=== PATIENT | male | born 1955 | race Two or more races ===

== ENCOUNTER 2024-12-11 13:55 | Inpatient (IN) | payer MEDICARE, MEDICAID, SELFPAY ==
[2024-12-11] VITALS (13 sets, daily range): BP systolic 95–154; BP diastolic 59–88; PULSE 81–126; RESP 19–24; TEMP 36.8–39.4; O2SAT 91–949; BMI 23.6
--- NOTE | 2024-12-11 14:24 | EKG_ITS ---
[facility] (Formerly [facility])[3] Test Date: 2024-12-11 Pat Name: CHRIS JAIN Department: Room: - Gender: Male [employer] Data [employer]: : 1955 Requested By: Daniela Alvarez Order Number: [id number] Reading MD: Daniela Alvarez Measurements Intervals [place] Rate: 122 P: 24 AK: 156 QRS: -2 QRSD: 126 T: 12 QT: 310 QTc: 443 Interpretive Statements SINUS TACHYCARDIA INDETERMINATE AXIS RIGHT BUNDLE BRANCH BLOCK [120+ ms QRS DURATION, UPRIGHT V1, 40+ ms S IN I/aVL/V4/V5/V6] No previous ECG available for comparison [id number]
--- NOTE | 2024-12-11 14:24 | XR_ITS ---
Examination: AP lateral chest 2 views Technique: Sitting AP lateral chest 2 views Exam date and time: December 11, 2024 at 1502 hrs. Comparison 07/08/2017 Indications: Chest pain today Findings: Mild prominence of ventricle Subsegmental atelectasis at the right base No lobar pneumonia or pulmonary edema Poor inspiration Impression: Atelectasis right base
--- NOTE | 2024-12-11 14:25 | XR_ITS ---
Examination: CT brain head without contrast. 2-D sagittal coronal reconstructions Date and time of exam:December 11, 2024 1450 hrs. Comparison June 13, 2014 Indications: Altered mental status today CTDI: vol (mGy):48.3 DLP: (mGycm):1006 Technique: Multiple CT axial sections of the brain have been obtained, 5 mm slice thickness. Contrast has not been administered. 2-D sagittal, coronal reconstructions have been obtained Low dose protocols were performed. One or more of the following dose reduction techniques were used; automated exposure control, adjustment of the mA and/or KV according to patient size, use of iterative reconstruction technique. Findings: No significant ventricular enlargement. 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 No mass effect or midline shift Basal cisterns are not remarkable. Fourth ventricle is midline. Cranial vault intact. Impression: No interval acute hemorrhage, mass effect or midline shift As clinically warranted, brain MRI follow-up would best assess for acute ischemic change
--- NOTE | 2024-12-11 14:27 | PD.EDRME ---
Rapid Medical Screening Exam [facility] Arrival date/time: 12/11/24 13:55 This is a 6-year-old male that is brought in by daughter with complaints of altered mental status. Per patient daughter patient has a history of stroke and as a result has right-sided weakness. Patient not able to move his right arm and can bear weight a little bit on the right leg. She reports that yesterday he is not acting normal. Patient had incontinent episodes which he does not have typically. Patient is usually able to get in and out of the commode with no issues. Since the stroke patient has expressive aphasia. Patient also had a fall yesterday and as a result had vomiting episodes last night after hitting his head. Patient also hurt his right hip when he fell. Patient daughter takes care of him and states that he is not acting normal. Patient has a history of high blood pressure hyperlipidemia stroke. I have greeted and performed a focused initial assessment of this patient. Initial appropriate labs ordered at this time. A comprehensive ED assessment and evaluation of the patient and analysis of all test and completion of medical decision making process will be conducted by additional ED provider. Chief Complaint: Altered Mental Status Time Seen by Provider: 12/11/24 14:17 Vital signs: Vital Signs Temperature 98.5 F 12/11/24 14:07 Pulse Rate 120 H 12/11/24 14:07 Respiratory Rate 20 12/11/24 14:07 Blood Pressure 99/59 L 12/11/24 14:07 Pulse Oximetry (%) 94 L 12/11/24 14:07 Oxygen Delivery Method Room Air 12/11/24 14:07
--- NOTE | 2024-12-11 14:29 | XR_ITS ---
Examination: Bilateral hips, AP pelvis, 5 views Technique: AP, lateral views both hips, AP pelvis, 5 views Exam date and time: December 11, 2024 1502 hrs. Indications: Injury to both hips today bilateral hip pain Findings: No acute fracture No hip dislocations Bones of the pelvis intact Impression: No acute hip or pelvic fractures Recommend 1 day follow-up AP pelvis as clinically warranted
[2024-12-11 15:33] LABS: Lactate (Lactic Acid) 2.6 mMol/L (0.4-2.0)
[2024-12-11 15:35] LABS: Basophils # (Auto) 0.1 Thou/mm3 (0.0-0.2); Basophils % (Auto) 0 % (0-2.5); Eosinophils % (Auto) 0 % (0-10); Hematocrit 46.3 % (41.0-53.0); Hemoglobin 15.5 g/dL (13.5-16.0); Immature Granulocytes % (Auto) 1 % (0-0); Immature Granulocytes Auto 0.27 Thou/mm3 (0.00-0.00); Lymphocytes # (Auto) 1.4 Thou/mm3 (1.0-4.8); Lymphocytes % (Auto) 5 % (10-50); Mean Corpuscular HGB Conc 33.5 g/dl (31.0-37.0); Mean Corpuscular Hemoglobin 28.7 pg (25.0-35.0); Mean Corpuscular Volume 86 fL (80-100); Monocytes % (Auto) 8 % (0-12); Neutrophils # (Auto) 22.8 Thou/mm3 (1.8-7.7); Neutrophils % (Auto) 86 % (37-80); Nucleated Red Blood Cell % 0 /100 WBC (0); Platelet Count 240 Thou/mm3 (140-440); RDW Standard Deviation 43.8 fL (35.1-43.9); White Blood Count 26.6 Thou/mm3 (3.8-10.6)
[2024-12-11 16:04] LABS: B-Type Natriuretic Peptide 33 pg/mL (0-100)
[2024-12-11 16:13] LABS: Alanine Aminotransferase 49 U/L (10-49); Albumin, Serum 4.8 gm/dL (3.4-4.8); Albumin/Globulin Ratio 1.8 (1.2-2.2); Alkaline Phosphatase 99 U/L (46-116); Anion Gap 9 (7-16); Aspartate Amino Transferase 29 U/L (0-34); BUN/Creatinine Ratio 17 Ratio (12-20); Bilirubin,Total 0.8 mg/dL (0.3-1.2); Blood Urea Nitrogen 38 mg/dL (9-23); Calcium 11.3 mg/dL (8.3-10.6); Calcium (Corrected) 11.3 mg/dL (8.5-10.1); Carbon Dioxide 23.7 mMol/L (20.0-31.0); Chloride 105 mMol/L (98-107); Creatinine (Component) 2.3 mg/dL (0.6-1.3); Estimated Creatinine Clearance 29.9 mL/min (>60); Globulin 2.7 gm/dL (2.3-3.5); Glucose 104 mg/dL (74-106); Osmolality,Calculated 284 (275-295); Potassium 5.1 mMol/L (3.4-5.1); Procalcitonin 0.98 ng/ml (0.0-0.49); Sodium 138 mMol/L (136-145); Total Protein 7.5 gm/dL (5.7-8.2); Troponin I < 0.020 ng/mL (0.0-0.045); eGFR 30 See Note
--- NOTE | 2024-12-11 16:58 | XR_ITS ---
Examination: CT cervical spine without contrast 2-D sagittal reconstructions 2-D coronal reconstructions 3-D reconstructions. Exam date and time:December 11, 2024 1720 hrs. Indications: Patient fell today with injury to the neck, neck pain CTDI:vol (mGy) 13.2 DLP: (mGycm) 314 Technique: Multiple 2 mm axial sections of the cervical spine have been obtained. The coronal and sagittal reconstructions have been obtained. 3-D reconstructions have been obtained. Low dose protocols were performed. One or more of the following dose reduction techniques were used; automated exposure control, adjustment of the mA and/or KV according to patient size, use of iterative reconstruction technique. Findings: Axial sections demonstrate intact base of the skull. Cervical fusion C6-C7 C1 exhibit satisfactory relationship to the odontoid. No acute cervical vertebral body fracture seen. Alignment posterior spinous processes satisfactory. Impression: No acute cervical fracture.
--- NOTE | 2024-12-11 16:58 | XR_ITS ---
Examination: CT pelvis without intravenous contrast. 2-D sagittal and coronal reconstructions. Date and time of exam:December 11, 2024 1724 hrs. Indications: Patient fell today with injury to the hips and pelvis, pelvic pain CTDI: vol (mGy) :8.32 DLP: (mGycm) : 290 Technique: Multiple 3 mm axial sections of the pelvis have been obtained with the 64 slice high resolution scanner. 2-D sagittal and coronal reconstructions. Low dose protocols were performed. One or more of the following dose reduction techniques were used; automated exposure control, adjustment of the mA and/or KV according to patient size, use of iterative reconstruction technique. Findings: Significant osteopenia Sacral segments intact Iliac bones acetabular regions anterior rami intact No hip fracture or dislocation Moderate narrowing hip joints Urinary bladder wall shows mild diffuse thickening Transverse prostate dimension 5.3 cm Impression: Moderate narrowing hip joints No acute hip or pelvic fracture
--- NOTE | 2024-12-11 17:13 | EDNOTE_ITS ---
ED General RME/HPI General Chief complaint: Altered Mental Status Stated complaint: LETHRATIC SINCE LAST NIGHT, FALL THIS MORNING Time Seen by Provider: 12/11/24 14:17 Arrival date/time: 12/11/24 13:55 CC: Altered mental status HPI onset at midnight last night, with increased weakness and warm to touch. 1 episode of vomiting. 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 Daughter is informing the patient has been weak, and not responding appropriately which included a fall this morning. Patient is awake, and complaining when being moved. No other family members are ill with similar symptoms. RME / HPI RME / HPI narrative: 12/11/24 13:55 This is a 6-year-old male that is brought in by daughter with complaints of altered mental status. Per patient daughter patient has a history of stroke and as a result has right-sided weakness. Patient not able to move his right arm and can bear weight a little bit on the right leg. She reports that yesterday he is not acting normal. Patient had incontinent episodes which he does not have typically. Patient is usually able to get in and out of the commode with no issues. Since the stroke patient has expressive aphasia. Patient also had a fall yesterday and as a result had vomiting episodes last night after hitting his head. Patient also hurt his right hip when he fell. Patient daughter takes care of him and states that he is not acting normal. Patient has a history of high blood pressure hyperlipidemia stroke. I have greeted and performed a focused initial assessment of this patient. Initial appropriate labs ordered at this time. A comprehensive ED assessment and evaluation of the patient and analysis of all test and completion of medical decision making process will be conducted by additional ED provider. Related Data Home Medications ?Medication ?Instructions ?Recorded ?Confirmed aspirin 325 mg tablet 325 mg PO QDAY #0 tabs 06/1312/11/24 amlodipine 10 mg tablet (Norvasc) 10 mg PO QDAY #0 tab s 07/06/17 12/11/24 escitalopram oxalate 10 mg tablet 10 mg PO QDAY #0 tab s 07/06/17 12/11/24 (Lexapro) ezetimibe 10 mg tablet (Zetia) 10 mg PO QDAY #0 tabs 0 07/06/17 12/11/24 omeprazole 20 mg capsule,delayed 20 mg PO QDAY ##0 09/1112/11/24 release levetiracetam 500 mg tablet 500 mg PO BID #0 tabs 06/2612/11/24 (Keppra) calcitriol 0.25 mcg capsule mcg 12/11/24 glipizide 5 mg tablet 5 mg PO QDAY 12/11/24 lisinopril 20 mg tablet mg 12/11/24 vitamin B complex-vitamin C-folic 1 tab PO QDAY 12/11/24 acid 0.8 mg tablet (Dialyvite 800) Allergies Allergy/AdvReac Type Severity Reaction Status Date / Time meperidine Allergy Mild Itching Verified 10/28/18 21:47 clopidogrel AdvReac Severe TEMPORARY Verified 10/28/18 21:47 BLINDNESS morphine AdvReac Mild Nausea/Vomi Verified 10/28/18 21:47 tiing Review of Systems Review of Systems ROS Unobtainable: unobtainable due to mental status Narrative Review of Systems: Per this daughters who manages care the patient has had decreased mentation decreased activity decreased appetite with fall. Past Medical History Social History SMOKING STATUS: Never smoker ED Exam Narrative Physical exam: [General appears not in any acute distress Head normocephalic HEENT: Eyes pupils are PERRLA EOMs are intact. Within acceptable limits Neck is supple nontender Chest equal chest rise nontender to palpation Respiratory: Clear to auscultation no wheezes crackles or rubs CV: Rate rhythm is regular no murmurs rubs or clicks Abdomen is distended secondary to body habitus soft nontender no masses positive bowel sounds all 4 quadrants Back: No CVA tenderness no spinous process tenderness from cervical spine thoracic and lumbar spine Skin: Intact no petechiae rash induration ulceration or crepitus Extremities: Right upper extremity is contracted. Moving all extremities against resistance cap refill less than 2 seconds neurosensory intact Neuro: Awake alert oriented x1, self, Glascow coma 15 no focal deficits] Course Quality Measures none Orders Category Date Time Status Bedside Influenza A&B Antigen Test NOW Care 12/11/24 14:25 Completed Process Controls Technician STAT Care 12/11/24 16:55 Active Continuous Pulse Oximetry STAT Care 12/11/24 16:55 Completed EKG (ED ONLY) *Do not use* NOW Care 12/11/24 14:25 Completed In and Out Catheter X1PRN Care 12/11/24 16:55 Completed Insert IV NOW Care 12/11/24 16:55 Active NPO STAT Care 12/11/24 16:55 Active Strict Intake and Output Routine Care 12/11/24 16:[address] cervical spine wo con Stat Exams 12/11/24 16:[address] head/brain wo con Stat Exams 12/11/24 14:[address] pelvis wo con Stat Exams 12/11/24 16:58 Completed EKG (ED Only) Stat Exams 12/11/24 14:24 Draft XR chest 2V Stat Exams 12/11/24 14:24 Completed XR hip BI w pelvis 3-4V Stat Exams 12/11/24 14:29 Completed B-Type Natriuretic Peptide Stat Lab 12/11/24 17:08 Completed BNP [B-Type Natriuretic Peptide] Stat Lab 12/11/24 15:20 Completed Blood Culture (Lab) Stat Lab 12/11/24 17:08 Received CBC Stat Lab 12/11/24 15:20 Completed Comprehensive Metabolic Panel Stat Lab 12/11/24 15:20 Completed Drug Screen,Urine Stat Lab 12/11/24 17:12 Completed LDH (Lactate Dehydrogenase) Stat Lab 12/11/24 17:08 Completed Lactate (Lactic Acid) Stat Lab 12/11/24 15:20 Completed Lactic Acid, 3 HR Stat Lab 12/11/24 19:00 Ordered Lipase Stat Lab 12/11/24 17:08 Completed Magnesium Stat Lab 12/11/24 17:08 Completed Partial Thromboplastin Time Stat Lab 12/11/24 17:08 Completed Phosphorous Stat Lab 12/11/24 17:08 Completed Procalcitonin Stat Lab 12/11/24 15:20 Completed Prothrombin Time with INR Stat Lab 12/11/24 17:08 Completed Troponin I Stat Lab 12/11/24 15:20 Completed Troponin I Stat Lab 12/11/24 17:08 Completed Urinalysis, C/S if Indicated Stat Lab 12/11/24 17:12 Completed Urine Culture Stat Lab 12/11/24 17:12 Received Acetaminophen Tab [Tylenol ES Tab] Med 12/11/24 16:57 Discontinued 1,000 mg PO X1 ONE Ringers Lactated 1000 ml [Lactated Ringers] 2,121 ml Med 12/11/24 16:55 Discontinued IV 2,121 mls/hr cefTRIAXone [Rocephin] 1,000 mg Med 12/11/24 18:00 Discontinued Sodium Chloride 0.9% (P) [Ns 0.9% (P)] 50 ml IV NOW Oxygen Delivery NOW RT 12/11/24 16:55 Active Vital Signs Vital signs: Vital Signs Temperature 98.5 F 12/11/24 14:07 Pulse Rate 120 H 12/11/24 14:07 Respiratory Rate 20 12/11/24 14:07 Blood Pressure 99/59 L 12/11/24 14:07 Pulse Oximetry (%) 94 L 12/11/24 14:07 Oxygen Delivery Method Room Air 12/11/24 14:07 [facility] Patient data External records reviewed:: [facility] previous records Clinical information provided by:: patient Social determinants that could affect healthcare access:: none Patient has the following chronic illnesses:: 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 How is presenting disease/condition affected by chronic disease/condition?: u neffected by Evaluation data The following diagnostics were reviewed and interpreted by me:: lab results and radiology exam(s) Lab and/or radiology exams considered but not ordered:: CBC shows a leukocytosis of 26,600 H&H and within acceptable limits platelet count of 240 Coags within acceptable limits CMP shows BUN of 38 creatinine of 2.3 Lactic acid of 2.6 Calcium 11.3 Phosphorus of 1.8 Pro-Dc of 0.92 urine is positive for WBCs leukocyte esterase and 1+ bacteria COVID influenza are negative. CT head is interpreted by me read by radiology as negative for any acute finding. Chest x-ray as interpreted by me shows right base atelectasis. CT of head C-spine and pelvis negative for any acute fracture malalignment dislocation or abnormality that requires emergent or immediate intervention is interpreted by me and read by radiology. Interpretation Summary: Urinary tract infection with fever and leukocytosis. Patient is septic with UTI, patient's case discussed with Dr. Cobb who agrees to accept the patient for admission for weakness and fever UTI sepsis Medications Medications considered but not ordered:: None Medication administrations:: Medication Administration History Discontinued Medications Acetaminophen (Acetaminophen 500 Mg Tablet) 1,000 mg PO X1 ONE Stop: 12/11/24 16:58 Last Admin: 12/11/24 17:48 Dose: 1,000 mg Documented By: TM Lactated Ringer's (Lactated Ringers) 2,121 mls @ 2,121 mls/hr 30 ml/kg infuse over 60 min (2121 ml) IV .Q1H ONE Stop: 12/11/24 17:54 Last Admin: 12/11/24 17:47 Dose: 2,121 mls/hr Documented By: TM Ceftriaxone Sodium 1,000 mg/ (Sodium Chloride) 50 mls @ 100 mls/hr IV NOW ONE Stop: 12/11/24 18:29 Last Admin: 12/11/24 18:45 Dose: 100 mls/hr Documented By: TM None Consultations Consultation(s) initiated? (list below): No Diagnosis Differential Diagnosis ED Complaint MDM: Fever weakness UTI altered mental status Most likely diagnosis given after review of the tests above:: Fever weakness UTI altered mental status Admission Indicated Admission indicated?: indicated Explain why admission is indicated or not indicated:: Requires further medical management Admission Request Was there a request for admission?: No Disposition Plan Disposition Plan: Admit Medical Decision Making Differential Diagnosis Differential Diagnosis: Fever weakness UTI altered mental status Lab Data 12/11/24 15:20 12/11/24 15:20 Labs: Lab Results 12/11/24 12/11/24 12/11/24 Range/Units 15:20 17:08 17:12 WBC 26.6 H (3.8-10.6) Thou/mm3 RBC 5.40 (4.50-5.90) Miln/mm3 Hgb 15.5 (13.5-16.0) g/dL Hct 46.3 (41.0-53.0) % MCV 86 (80-100) fL MCH 28.7 (25.0-35.0) pg MCHC 33.5 (31.0-37.0) g/dl RDW Std Deviation 43.8 (35.1-43.9) fL Plt Count 240 (140-440) Thou/mm3 Neut % (Auto) 86 H (37-80) % Lymph % (Auto) 5 L (10-50) % [place] % (Auto) 8 (0-12) % Eos % (Auto) 0 (0-10) % Baso % (Auto) 0 (0-2.5) % Neut # (Auto) 22.8 H (1.8-7.7) Thou/mm3 Lymph # (Auto) 1.4 (1.0-4.8) Thou/mm3 [place] # (Auto) 2.0 H (0.0-0.8) Thou/mm3 Eos # (Auto) 0.0 (0.0-0.5) Thou/mm3 Baso # (Auto) 0.1 (0.0-0.2) Thou/mm3 Immature Gran # (Auto) 0.27 H (0.00-0.00) Thou/mm3 Absolute Nucleated RBC 0.00 (0.00-0.00) Thou/mm3 Immature Gran % 1 H (0-0) % Nucleated RBC % 0 (0) /100 WBC PT 12.7 H (9.0-12.2) Seconds INR 1.2 (0.9-1.3) APTT 29.1 (22.0-36.0) Seconds Sodium 138 (136-145) mMol/L Potassium 5.1 (3.4-5.1) mMol/L Chloride 105 (98-107) mMol/L Carbon Dioxide 23.7 (20.0-31.0) mMol/L Anion Gap 9 (7-16) BUN 38 H (9-23) mg/dL Creatinine 2.3 H (0.6-1.3) mg/dL Estim Creat Clear Calc 29.9 L (>60) mL/min eGFR 30 L (60 - ) See Note BUN/Creatinine Ratio 17 (12-20) Ratio Glucose 104 (74-106) mg/dL Calculated Osmolality 284 (275-295) Lactic Acid 2.6 H (0.4-2.0) mMol/L Calcium 11.3 H (8.3-10.6) mg/dL Corrected Calcium 11.3 H (8.5-10.1) mg/dL Phosphorus 1.8 L (2.4-5.1) mg/dL Magnesium 2.3 (1.6-2.6) mg/dL Total Bilirubin 0.8 (0.3-1.2) mg/dL AST 29 (0-34) U/L ALT 49 (10-49) U/L Alkaline Phosphatase 99 (46-116) U/L Lactate Dehydrogenase 190 (120-246) U/L Troponin I < 0.020 < 0.020 (0.0-0.045) ng/mL B-Natriuretic Peptide 33 31 (0-100) pg/mL Total Protein 7.5 (5.7-8.2) gm/dL Albumin 4.8 (3.4-4.8) gm/dL Globulin 2.7 (2.3-3.5) gm/dL Albumin/Globulin Ratio 1.8 (1.2-2.2) Lipase 47 (12-53) U/L Procalcitonin 0.98 H (0.0-0.49) ng/ml Ur Collection Type Voided Urine Color (Lt Yel-Yel) Urine Clarity (Clear/Hazy) Urine pH (5.0-7.0) Ur Specific Spray (1.001-1.035) Urine Protein (Neg - Trace) Urine Glucose (UA) (Negative) Urine Ketones (Negative) Urine Blood (Negative) Urine Nitrite (Negative) Urine Bilirubin (Negative) Urine Urobilinogen (Auto) (0.0-1.0) mg/dL Ur Leukocyte Esterase (Negative) Urine RBC (0-3) /hpf Urine WBC (0-5) /hpf Ur Squamous Epith Cells (0-5) /hpf Ur Transition Epith Cell Ur Renal Epithelial Cell Calcium Carbonate Cryst Calcium Phosphate Cryst Calcium Oxalate Crystal Leucine Crystals Cystine Crystals Uric Acid Crystals Triple Phos Crystals Tyrosine Crystals Amorphous Crystals Urine Bacteria (None) Cellular Casts Epithelial Casts Fatty Casts Hyaline Casts Granular Casts Waxy Casts Broad Casts RBC Casts Urine Mucus Urine Trichomonas Ur Yeast w Hyphae Urine Yeast (Budding) Urine Sperm Ur Oval Fat Bodies Ur Culture Indicated? Urine Opiates Screen (Negative) Urine Fentanyl Screen (Negative) Ur Barbiturates Screen (Negative) U Amphetamin/Meth Scrn (Negative) U Benzodiazepines Scrn (Negative) U Cocaine Metab Screen (Negative) U Marijuana (THC) Screen (Negative) 12/11/24 12/11/24 12/11/24 Range/Units 17:12 17:12 17:12 WBC (3.8-10.6) Thou/mm3 RBC (4.50-5.90) Miln/mm3 Hgb (13.5-16.0) g/dL Hct (41.0-53.0) % MCV (80-100) fL MCH (25.0-35.0) pg MCHC (31.0-37.0) g/dl RDW Std Deviation (35.1-43.9) fL Plt Count (140-440) Thou/mm3 Neut % (Auto) (37-80) % Lymph % (Auto) (10-50) % [place] % (Auto) (0-12) % Eos % (Auto) (0-10) % Baso % (Auto) (0-2.5) % Neut # (Auto) (1.8-7.7) Thou/mm3 Lymph # (Auto) (1.0-4.8) Thou/mm3 [place] # (Auto) (0.0-0.8) Thou/mm3 Eos # (Auto) (0.0-0.5) Thou/mm3 Baso # (Auto) (0.0-0.2) Thou/mm3 Immature Gran # (Auto) (0.00-0.00) Thou/mm3 Absolute Nucleated RBC (0.00-0.00) Thou/mm3 Immature Gran % (0-0) % Nucleated RBC % (0) /100 WBC PT (9.0-12.2) Seconds INR (0.9-1.3) APTT (22.0-36.0) Seconds Sodium (136-145) mMol/L Potassium (3.4-5.1) mMol/L Chloride (98-107) mMol/L Carbon Dioxide (20.0-31.0) mMol/L Anion Gap (7-16) BUN (9-23) mg/dL Creatinine (0.6-1.3) mg/dL Estim Creat Clear Calc (>60) mL/min eGFR (60 - ) See Note BUN/Creatinine Ratio (12-20) Ratio Glucose (74-106) mg/dL Calculated Osmolality (275-295) Lactic Acid (0.4-2.0) mMol/L Calcium (8.3-10.6) mg/dL Corrected Calcium (8.5-10.1) mg/dL Phosphorus (2.4-5.1) mg/dL Magnesium (1.6-2.6) mg/dL Total Bilirubin (0.3-1.2) mg/dL AST (0-34) U/L ALT (10-49) U/L Alkaline Phosphatase (46-116) U/L Lactate Dehydrogenase (120-246) U/L Troponin I (0.0-0.045) ng/mL B-Natriuretic Peptide (0-100) pg/mL Total Protein (5.7-8.2) gm/dL Albumin (3.4-4.8) gm/dL Globulin (2.3-3.5) gm/dL Albumin/Globulin Ratio (1.2-2.2) Lipase (12-53) U/L Procalcitonin (0.0-0.49) ng/ml Ur Collection Type Cancelled Urine Color Yellow Cancelled (Lt Yel-Yel) Urine Clarity Hazy Cancelled (Clear/Hazy) Urine pH 5.5 (5.0-7.0) Ur Specific Spray (1.001-1.035) Urine Protein (Neg - Trace) Urine Glucose (UA) (Negative) Urine Ketones (Negative) Urine Blood (Negative) Urine Nitrite (Negative) Urine Bilirubin (Negative) Urine Urobilinogen (Auto) (0.0-1.0) mg/dL Ur Leukocyte Esterase (Negative) Urine RBC (0-3) /hpf Urine WBC (0-5) /hpf Ur Squamous Epith Cells (0-5) /hpf Ur Transition Epith Cell Ur Renal Epithelial Cell Calcium Carbonate Cryst Calcium Phosphate Cryst Calcium Oxalate Crystal Leucine Crystals Cystine Crystals Uric Acid Crystals Triple Phos Crystals Tyrosine Crystals Amorphous Crystals Urine Bacteria (None) Cellular Casts Epithelial Casts Fatty Casts Hyaline Casts Granular Casts Waxy Casts Broad Casts RBC Casts Urine Mucus Urine Trichomonas Ur Yeast w Hyphae Urine Yeast (Budding) Urine Sperm Ur Oval Fat Bodies Ur Culture Indicated? Urine Opiates Screen (Negative) Urine Fentanyl Screen (Negative) Ur Barbiturates Screen (Negative) U Amphetamin/Meth Scrn (Negative) U Benzodiazepines Scrn (Negative) U Cocaine Metab Screen (Negative) U Marijuana (THC) Screen (Negative) 12/11/24 12/11/24 12/11/24 Range/Units 17:12 17:12 17:12 WBC (3.8-10.6) Thou/mm3 RBC (4.50-5.90) Miln/mm3 Hgb (13.5-16.0) g/dL Hct (41.0-53.0) % MCV (80-100) fL MCH (25.0-35.0) pg MCHC (31.0-37.0) g/dl RDW Std Deviation (35.1-43.9) fL Plt Count (140-440) Thou/mm3 Neut % (Auto) (37-80) % Lymph % (Auto) (10-50) % [place] % (Auto) (0-12) % Eos % (Auto) (0-10) % Baso % (Auto) (0-2.5) % Neut # (Auto) (1.8-7.7) Thou/mm3 Lymph # (Auto) (1.0-4.8) Thou/mm3 [place] # (Auto) (0.0-0.8) Thou/mm3 Eos # (Auto) (0.0-0.5) Thou/mm3 Baso # (Auto) (0.0-0.2) Thou/mm3 Immature Gran # (Auto) (0.00-0.00) Thou/mm3 Absolute Nucleated RBC (0.00-0.00) Thou/mm3 Immature Gran % (0-0) % Nucleated RBC % (0) /100 WBC PT (9.0-12.2) Seconds INR (0.9-1.3) APTT (22.0-36.0) Seconds Sodium (136-145) mMol/L Potassium (3.4-5.1) mMol/L Chloride (98-107) mMol/L Carbon Dioxide (20.0-31.0) mMol/L Anion Gap (7-16) BUN (9-23) mg/dL Creatinine (0.6-1.3) mg/dL Estim Creat Clear Calc (>60) mL/min eGFR (60 - ) See Note BUN/Creatinine Ratio (12-20) Ratio Glucose (74-106) mg/dL Calculated Osmolality (275-295) Lactic Acid (0.4-2.0) mMol/L Calcium (8.3-10.6) mg/dL Corrected Calcium (8.5-10.1) mg/dL Phosphorus (2.4-5.1) mg/dL Magnesium (1.6-2.6) mg/dL Total Bilirubin (0.3-1.2) mg/dL AST (0-34) U/L ALT (10-49) U/L Alkaline Phosphatase (46-116) U/L Lactate Dehydrogenase (120-246) U/L Troponin I (0.0-0.045) ng/mL B-Natriuretic Peptide (0-100) pg/mL Total Protein (5.7-8.2) gm/dL Albumin (3.4-4.8) gm/dL Globulin (2.3-3.5) gm/dL Albumin/Globulin Ratio (1.2-2.2) Lipase (12-53) U/L Procalcitonin (0.0-0.49) ng/ml Ur Collection Type Urine Color (Lt Yel-Yel) Urine Clarity (Clear/Hazy) Urine pH Cancelled (5.0-7.0) Ur Specific Spray 1.020 Cancelled (1.001-1.035) Urine Protein 1+ A Cancelled (Neg - Trace) Urine Glucose (UA) Negative (Negative) Urine Ketones (Negative) Urine Blood (Negative) Urine Nitrite (Negative) Urine Bilirubin (Negative) Urine Urobilinogen (Auto) (0.0-1.0) mg/dL Ur Leukocyte Esterase (Negative) Urine RBC (0-3) /hpf Urine WBC (0-5) /hpf Ur Squamous Epith Cells (0-5) /hpf Ur Transition Epith Cell Ur Renal Epithelial Cell Calcium Carbonate Cryst Calcium Phosphate Cryst Calcium Oxalate Crystal Leucine Crystals Cystine Crystals Uric Acid Crystals Triple Phos Crystals Tyrosine Crystals Amorphous Crystals Urine Bacteria (None) Cellular Casts Epithelial Casts Fatty Casts Hyaline Casts Granular Casts Waxy Casts Broad Casts RBC Casts Urine Mucus Urine Trichomonas Ur Yeast w Hyphae Urine Yeast (Budding) Urine Sperm Ur Oval Fat Bodies Ur Culture Indicated? Urine Opiates Screen (Negative) Urine Fentanyl Screen (Negative) Ur Barbiturates Screen (Negative) U Amphetamin/Meth Scrn (Negative) U Benzodiazepines Scrn (Negative) U Cocaine Metab Screen (Negative) U Marijuana (THC) Screen (Negative) 12/11/24 12/11/24 12/11/24 Range/Units 17:12 17:12 17:12 WBC (3.8-10.6) Thou/mm3 RBC (4.50-5.90) Miln/mm3 Hgb (13.5-16.0) g/dL Hct (41.0-53.0) % MCV (80-100) fL MCH (25.0-35.0) pg MCHC (31.0-37.0) g/dl RDW Std Deviation (35.1-43.9) fL Plt Count (140-440) Thou/mm3 Neut % (Auto) (37-80) % Lymph % (Auto) (10-50) % [place] % (Auto) (0-12) % Eos % (Auto) (0-10) % Baso % (Auto) (0-2.5) % Neut # (Auto) (1.8-7.7) Thou/mm3 Lymph # (Auto) (1.0-4.8) Thou/mm3 [place] # (Auto) (0.0-0.8) Thou/mm3 Eos # (Auto) (0.0-0.5) Thou/mm3 Baso # (Auto) (0.0-0.2) Thou/mm3 Immature Gran # (Auto) (0.00-0.00) Thou/mm3 Absolute Nucleated RBC (0.00-0.00) Thou/mm3 Immature Gran % (0-0) % Nucleated RBC % (0) /100 WBC PT (9.0-12.2) Seconds INR (0.9-1.3) APTT (22.0-36.0) Seconds Sodium (136-145) mMol/L Potassium (3.4-5.1) mMol/L Chloride (98-107) mMol/L Carbon Dioxide (20.0-31.0) mMol/L Anion Gap (7-16) BUN (9-23) mg/dL Creatinine (0.6-1.3) mg/dL Estim Creat Clear Calc (>60) mL/min eGFR (60 - ) See Note BUN/Creatinine Ratio (12-20) Ratio Glucose (74-106) mg/dL Calculated Osmolality (275-295) Lactic Acid (0.4-2.0) mMol/L Calcium (8.3-10.6) mg/dL Corrected Calcium (8.5-10.1) mg/dL Phosphorus (2.4-5.1) mg/dL Magnesium (1.6-2.6) mg/dL Total Bilirubin (0.3-1.2) mg/dL AST (0-34) U/L ALT (10-49) U/L Alkaline Phosphatase (46-116) U/L Lactate Dehydrogenase (120-246) U/L Troponin I (0.0-0.045) ng/mL B-Natriuretic Peptide (0-100) pg/mL Total Protein (5.7-8.2) gm/dL Albumin (3.4-4.8) gm/dL Globulin (2.3-3.5) gm/dL Albumin/Globulin Ratio (1.2-2.2) Lipase (12-53) U/L Procalcitonin (0.0-0.49) ng/ml Ur Collection Type Urine Color (Lt Yel-Yel) Urine Clarity (Clear/Hazy) Urine pH (5.0-7.0) Ur Specific Spray (1.001-1.035) Urine Protein (Neg - Trace) Urine Glucose (UA) Cancelled (Negative) Urine Ketones Negative Cancelled (Negative) Urine Blood 2+ A Cancelled (Negative) Urine Nitrite Negative (Negative) Urine Bilirubin (Negative) Urine Urobilinogen (Auto) (0.0-1.0) mg/dL Ur Leukocyte Esterase (Negative) Urine RBC (0-3) /hpf Urine WBC (0-5) /hpf Ur Squamous Epith Cells (0-5) /hpf Ur Transition Epith Cell Ur Renal Epithelial Cell Calcium Carbonate Cryst Calcium Phosphate Cryst Calcium Oxalate Crystal Leucine Crystals Cystine Crystals Uric Acid Crystals Triple Phos Crystals Tyrosine Crystals Amorphous Crystals Urine Bacteria (None) Cellular Casts Epithelial Casts Fatty Casts Hyaline Casts Granular Casts Waxy Casts Broad Casts RBC Casts Urine Mucus Urine Trichomonas Ur Yeast w Hyphae Urine Yeast (Budding) Urine Sperm Ur Oval Fat Bodies Ur Culture Indicated? Urine Opiates Screen (Negative) Urine Fentanyl Screen (Negative) Ur Barbiturates Screen (Negative) U Amphetamin/Meth Scrn (Negative) U Benzodiazepines Scrn (Negative) U Cocaine Metab Screen (Negative) U Marijuana (THC) Screen (Negative) 12/11/24 12/11/24 12/11/24 Range/Units 17:12 17:12 17:12 WBC (3.8-10.6) Thou/mm3 RBC (4.50-5.90) Miln/mm3 Hgb (13.5-16.0) g/dL Hct (41.0-53.0) % MCV (80-100) fL MCH (25.0-35.0) pg MCHC (31.0-37.0) g/dl RDW Std Deviation (35.1-43.9) fL Plt Count (140-440) Thou/mm3 Neut % (Auto) (37-80) % Lymph % (Auto) (10-50) % [place] % (Auto) (0-12) % Eos % (Auto) (0-10) % Baso % (Auto) (0-2.5) % Neut # (Auto) (1.8-7.7) Thou/mm3 Lymph # (Auto) (1.0-4.8) Thou/mm3 [place] # (Auto) (0.0-0.8) Thou/mm3 Eos # (Auto) (0.0-0.5) Thou/mm3 Baso # (Auto) (0.0-0.2) Thou/mm3 Immature Gran # (Auto) (0.00-0.00) Thou/mm3 Absolute Nucleated RBC (0.00-0.00) Thou/mm3 Immature Gran % (0-0) % Nucleated RBC % (0) /100 WBC PT (9.0-12.2) Seconds INR (0.9-1.3) APTT (22.0-36.0) Seconds Sodium (136-145) mMol/L Potassium (3.4-5.1) mMol/L Chloride (98-107) mMol/L Carbon Dioxide (20.0-31.0) mMol/L Anion Gap (7-16) BUN (9-23) mg/dL Creatinine (0.6-1.3) mg/dL Estim Creat Clear Calc (>60) mL/min eGFR (60 - ) See Note BUN/Creatinine Ratio (12-20) Ratio Glucose (74-106) mg/dL Calculated Osmolality (275-295) Lactic Acid (0.4-2.0) mMol/L Calcium (8.3-10.6) mg/dL Corrected Calcium (8.5-10.1) mg/dL Phosphorus (2.4-5.1) mg/dL Magnesium (1.6-2.6) mg/dL Total Bilirubin (0.3-1.2) mg/dL AST (0-34) U/L ALT (10-49) U/L Alkaline Phosphatase (46-116) U/L Lactate Dehydrogenase (120-246) U/L Troponin I (0.0-0.045) ng/mL B-Natriuretic Peptide (0-100) pg/mL Total Protein (5.7-8.2) gm/dL Albumin (3.4-4.8) gm/dL Globulin (2.3-3.5) gm/dL Albumin/Globulin Ratio (1.2-2.2) Lipase (12-53) U/L Procalcitonin (0.0-0.49) ng/ml Ur Collection Type Urine Color (Lt Yel-Yel) Urine Clarity (Clear/Hazy) Urine pH (5.0-7.0) Ur Specific Spray (1.001-1.035) Urine Protein (Neg - Trace) Urine Glucose (UA) (Negative) Urine Ketones (Negative) Urine Blood (Negative) Urine Nitrite Cancelled (Negative) Urine Bilirubin Negative Cancelled (Negative) Urine Urobilinogen (Auto) Negative Cancelled (0.0-1.0) mg/dL Ur Leukocyte Esterase Positive (Negative) Urine RBC (0-3) /hpf Urine WBC (0-5) /hpf Ur Squamous Epith Cells (0-5) /hpf Ur Transition Epith Cell Ur Renal Epithelial Cell Calcium Carbonate Cryst Calcium Phosphate Cryst Calcium Oxalate Crystal Leucine Crystals Cystine Crystals Uric Acid Crystals Triple Phos Crystals Tyrosine Crystals Amorphous Crystals Urine Bacteria (None) Cellular Casts Epithelial Casts Fatty Casts Hyaline Casts Granular Casts Waxy Casts Broad Casts RBC Casts Urine Mucus Urine Trichomonas Ur Yeast w Hyphae Urine Yeast (Budding) Urine Sperm Ur Oval Fat Bodies Ur Culture Indicated? Urine Opiates Screen (Negative) Urine Fentanyl Screen (Negative) Ur Barbiturates Screen (Negative) U Amphetamin/Meth Scrn (Negative) U Benzodiazepines Scrn (Negative) U Cocaine Metab Screen (Negative) U Marijuana (THC) Screen (Negative) 12/11/24 12/11/24 12/11/24 Range/Units 17:12 17:12 17:12 WBC (3.8-10.6) Thou/mm3 RBC (4.50-5.90) Miln/mm3 Hgb (13.5-16.0) g/dL Hct (41.0-53.0) % MCV (80-100) fL MCH (25.0-35.0) pg MCHC (31.0-37.0) g/dl RDW Std Deviation (35.1-43.9) fL Plt Count (140-440) Thou/mm3 Neut % (Auto) (37-80) % Lymph % (Auto) (10-50) % [place] % (Auto) (0-12) % Eos % (Auto) (0-10) % Baso % (Auto) (0-2.5) % Neut # (Auto) (1.8-7.7) Thou/mm3 Lymph # (Auto) (1.0-4.8) Thou/mm3 [place] # (Auto) (0.0-0.8) Thou/mm3 Eos # (Auto) (0.0-0.5) Thou/mm3 Baso # (Auto) (0.0-0.2) Thou/mm3 Immature Gran # (Auto) (0.00-0.00) Thou/mm3 Absolute Nucleated RBC (0.00-0.00) Thou/mm3 Immature Gran % (0-0) % Nucleated RBC % (0) /100 WBC PT (9.0-12.2) Seconds INR (0.9-1.3) APTT (22.0-36.0) Seconds Sodium (136-145) mMol/L Potassium (3.4-5.1) mMol/L Chloride (98-107) mMol/L Carbon Dioxide (20.0-31.0) mMol/L Anion Gap (7-16) BUN (9-23) mg/dL Creatinine (0.6-1.3) mg/dL Estim Creat Clear Calc (>60) mL/min eGFR (60 - ) See Note BUN/Creatinine Ratio (12-20) Ratio Glucose (74-106) mg/dL Calculated Osmolality (275-295) Lactic Acid (0.4-2.0) mMol/L Calcium (8.3-10.6) mg/dL Corrected Calcium (8.5-10.1) mg/dL Phosphorus (2.4-5.1) mg/dL Magnesium (1.6-2.6) mg/dL Total Bilirubin (0.3-1.2) mg/dL AST (0-34) U/L ALT (10-49) U/L Alkaline Phosphatase (46-116) U/L Lactate Dehydrogenase (120-246) U/L Troponin I (0.0-0.045) ng/mL B-Natriuretic Peptide (0-100) pg/mL Total Protein (5.7-8.2) gm/dL Albumin (3.4-4.8) gm/dL Globulin (2.3-3.5) gm/dL Albumin/Globulin Ratio (1.2-2.2) Lipase (12-53) U/L Procalcitonin (0.0-0.49) ng/ml Ur Collection Type Urine Color (Lt Yel-Yel) Urine Clarity (Clear/Hazy) Urine pH (5.0-7.0) Ur Specific Spray (1.001-1.035) Urine Protein (Neg - Trace) Urine Glucose (UA) (Negative) Urine Ketones (Negative) Urine Blood (Negative) Urine Nitrite (Negative) Urine Bilirubin (Negative) Urine Urobilinogen (Auto) (0.0-1.0) mg/dL Ur Leukocyte Esterase Cancelled (Negative) Urine RBC 33 H Cancelled (0-3) /hpf Urine WBC 206 H Cancelled (0-5) /hpf Ur Squamous Epith Cells 1 (0-5) /hpf Ur Transition Epith Cell Ur Renal Epithelial Cell Calcium Carbonate Cryst Calcium Phosphate Cryst Calcium Oxalate Crystal Leucine Crystals Cystine Crystals Uric Acid Crystals Triple Phos Crystals Tyrosine Crystals Amorphous Crystals Urine Bacteria (None) Cellular Casts Epithelial Casts Fatty Casts Hyaline Casts Granular Casts Waxy Casts Broad Casts RBC Casts Urine Mucus Urine Trichomonas Ur Yeast w Hyphae Urine Yeast (Budding) Urine Sperm Ur Oval Fat Bodies Ur Culture Indicated? Urine Opiates Screen (Negative) Urine Fentanyl Screen (Negative) Ur Barbiturates Screen (Negative) U Amphetamin/Meth Scrn (Negative) U Benzodiazepines Scrn (Negative) U Cocaine Metab Screen (Negative) U Marijuana (THC) Screen (Negative) 12/11/24 12/11/24 Range/Units 17:12 17:12 WBC (3.8-10.6) Thou/mm3 RBC (4.50-5.90) Miln/mm3 Hgb (13.5-16.0) g/dL Hct (41.0-53.0) % MCV (80-100) fL MCH (25.0-35.0) pg MCHC (31.0-37.0) g/dl RDW Std Deviation (35.1-43.9) fL Plt Count (140-440) Thou/mm3 Neut % (Auto) (37-80) % Lymph % (Auto) (10-50) % [place] % (Auto) (0-12) % Eos % (Auto) (0-10) % Baso % (Auto) (0-2.5) % Neut # (Auto) (1.8-7.7) Thou/mm3 Lymph # (Auto) (1.0-4.8) Thou/mm3 [place] # (Auto) (0.0-0.8) Thou/mm3 Eos # (Auto) (0.0-0.5) Thou/mm3 Baso # (Auto) (0.0-0.2) Thou/mm3 Immature Gran # (Auto) (0.00-0.00) Thou/mm3 Absolute Nucleated RBC (0.00-0.00) Thou/mm3 Immature Gran % (0-0) % Nucleated RBC % (0) /100 WBC PT (9.0-12.2) Seconds INR (0.9-1.3) APTT (22.0-36.0) Seconds Sodium (136-145) mMol/L Potassium (3.4-5.1) mMol/L Chloride (98-107) mMol/L Carbon Dioxide (20.0-31.0) mMol/L Anion Gap (7-16) BUN (9-23) mg/dL Creatinine (0.6-1.3) mg/dL Estim Creat Clear Calc (>60) mL/min eGFR (60 - ) See Note BUN/Creatinine Ratio (12-20) Ratio Glucose (74-106) mg/dL Calculated Osmolality (275-295) Lactic Acid (0.4-2.0) mMol/L Calcium (8.3-10.6) mg/dL Corrected Calcium (8.5-10.1) mg/dL Phosphorus (2.4-5.1) mg/dL Magnesium (1.6-2.6) mg/dL Total Bilirubin (0.3-1.2) mg/dL AST (0-34) U/L ALT (10-49) U/L Alkaline Phosphatase (46-116) U/L Lactate Dehydrogenase (120-246) U/L Troponin I (0.0-0.045) ng/mL B-Natriuretic Peptide (0-100) pg/mL Total Protein (5.7-8.2) gm/dL Albumin (3.4-4.8) gm/dL Globulin (2.3-3.5) gm/dL Albumin/Globulin Ratio (1.2-2.2) Lipase (12-53) U/L Procalcitonin (0.0-0.49) ng/ml Ur Collection Type Urine Color (Lt Yel-Yel) Urine Clarity (Clear/Hazy) Urine pH (5.0-7.0) Ur Specific Spray (1.001-1.035) Urine Protein (Neg - Trace) Urine Glucose (UA) (Negative) Urine Ketones (Negative) Urine Blood (Negative) Urine Nitrite (Negative) Urine Bilirubin (Negative) Urine Urobilinogen (Auto) (0.0-1.0) mg/dL Ur Leukocyte Esterase (Negative) Urine RBC (0-3) /hpf Urine WBC (0-5) /hpf Ur Squamous Epith Cells Cancelled (0-5) /hpf Ur Transition Epith Cell Cancelled Ur Renal Epithelial Cell Cancelled Calcium Carbonate Cryst Cancelled Calcium Phosphate Cryst Cancelled Calcium Oxalate Crystal Cancelled Leucine Crystals Cancelled Cystine Crystals Cancelled Uric Acid Crystals Cancelled Triple Phos Crystals Cancelled Tyrosine Crystals Cancelled Amorphous Crystals Cancelled Urine Bacteria 1+ A Cancelled (None) Cellular Casts Cancelled Epithelial Casts Cancelled Fatty Casts Cancelled Hyaline Casts Cancelled Granular Casts Cancelled Waxy Casts Cancelled Broad Casts Cancelled RBC Casts Cancelled Urine Mucus Cancelled Urine Trichomonas Cancelled Ur Yeast w Hyphae Cancelled Urine Yeast (Budding) Cancelled Urine Sperm Cancelled Ur Oval Fat Bodies Cancelled Ur Culture Indicated? Yes Urine Opiates Screen Negative (Negative) Urine Fentanyl Screen Negative (Negative) Ur Barbiturates Screen Negative (Negative) U Amphetamin/Meth Scrn Negative (Negative) U Benzodiazepines Scrn Negative (Negative) U Cocaine Metab Screen Negative (Negative) U Marijuana (THC) Screen Negative (Negative) Discharge Plan Plan Patient Disposition: Other Care w/in Hosp ([facility]) Patient condition on transfer: Stable Prescriptions/Referrals Prescriptions/Med Rec: No Action aspirin 325 MG tablet 325 mg PO QDAY Qty: 0 amlodipine [Norvasc] 10 MG tablet 10 mg PO QDAY Qty: 0 omeprazole 20 MG capsule,delayed release(DR/EC) 20 mg PO QDAY Qty: 0 escitalopram oxalate [Lexapro] 10 MG tablet 10 mg PO QDAY Qty: 0 ezetimibe [Zetia] 10 MG tablet 10 mg PO QDAY Qty: 0 levetiracetam [Keppra] 500 MG tablet 500 mg PO BID Qty: 0 calcitriol 0.25 mcg capsule Patient Comments: TAKE 1 CAPSULE BY MOUTH EVERY DAY Dialyvite 800 0.8 mg tablet 1 tab PO QDAY lisinopril 20 mg tablet Patient Comments: TAKE 1 TABLET BY MOUTH EVERY DAY glipizide 5 mg tablet 5 mg PO QDAY Problem List Clinical Impression: Acute UTI, Sepsis, Fever, Weakness Patient/Caregiver Discharge Instructions Print Language: [place] Zealander Stand Alone Forms: Mari Award Info., Patient Portal Info Letter PA/CHEMICALS FERMENTATION OPERATOR Supervising Physician PA/CHEMICALS FERMENTATION OPERATOR Supervising Physician: Robert Gambino ENP
[2024-12-11 17:20] LABS: Collection Type, Urine Voided
--- NOTE | 2024-12-11 17:22 | PC.NURSE ---
PT ARRIVES FROM HOME, DAUGHTERS BROUGHT HIM IN, REPORTS HE IS NOT ACTING HIMSELF. PER DAUGHTER PT GETS UP GOES TO THE BR ON HIS OWN, HX OF STROKE WITH RIGHT SIDED DEFICIT. PER DAUGHTER NOW PT IS INCONT AND OFF BALANCE. DAUGHTER NOT COOPERATIVE WITH STAFF, ONLY ALLOWING STAFF TO POSITION PT HER WAY, AND GET HIM FROM WHEELCHAIR TO STRETCHER FROM HER PREFERRED APPROACH, RAISING HER VOICE, USING FORCEFUL HAND GESTURES. WHEN ATTEMPTING TO DISCUSS HER OPTION WELL OURS, SHE REFUSED TO LET US CARE FOR PT UNLESS IT IS THE WAY SHE WANTS. IN AND OUT CATH PERFORMED TO OBTAIN URINE, FORESKIN WAS PULLED BACK, THERE WAS WHAT APPEARED TO BE A LOT OF WHITE BUILD UP, AND BLOOD AT THE TIP OF THE PENIS. URINE WAS OBTAINED, IV PLACED, WILL CONTINUE W/POC. DAUGHTER REMAINS AT BEDSIDE.
[2024-12-11 17:33] LABS: Amphetamine/Methamp Scrn,U Negative (Negative); Barbiturate Screen,Urine Negative (Negative); Benzodiazepines Screen,Urine Negative (Negative); Benzoylecgonine Screen, Ur Negative (Negative); Fentanyl Screen,Urine Negative (Negative); Opiate Screen,Urine Negative (Negative); THC Screen,Urine Negative (Negative)
[2024-12-11 17:36] LABS: Bacteria,Urine 1+; Bilirubin,Urine Negative (Negative); Blood,Urine 2+ (Negative); Color,Urine Yellow (Lt Yel-Yel); Glucose, Urine Negative (Negative); Ketones,Urine Negative (Negative); Leukocyte Esterase,Urine Positive (Negative); Nitrite,Urine Negative (Negative); PH,Urine 5.5 (5.0-7.0); Protein,Urine 1+ (Neg - Trace); RBC,Urine 33 /hpf (0-3); Squamous Epithelial Cell,Urine 1 /hpf (0-5); Urobilinogen,Urine Negative mg/dL (0.0-1.0); WBC,Urine 206 /hpf (0-5)
[2024-12-11 17:38] LABS: INR 1.2 (0.9-1.3); Partial Thromboplastin Time 29.1 Seconds (22.0-36.0); Prothrombin Time 12.7 Seconds (9.0-12.2)
[2024-12-11 17:40] LABS: Clarity,Urine Hazy (Clear/Hazy); Culture Indicated,Urine Yes
[2024-12-11 17:42] LABS: LDH (Lactate Dehydrogenase) 190 U/L (120-246); Lipase 47 U/L (12-53); Magnesium 2.3 mg/dL (1.6-2.6); Phosphorous 1.8 mg/dL (2.4-5.1); Troponin I < 0.020 ng/mL (0.0-0.045)
[2024-12-11] MEDS: RINGERS LACTATED 2121 ML IV (17:47)
[2024-12-11 17:48] LABS: B-Type Natriuretic Peptide 31 pg/mL (0-100)
[2024-12-11] MEDS: ACETAMINOPHEN 500 MG TABLET 1000 MG PO (17:48)
[2024-12-11 18:30] LABS: Reflex Lactate? Y
[2024-12-11] MEDS: cefTRIAXone 1,000 MG in SODIUM CHLORIDE 0.9% (P) 50 ML 100 MG IV (18:45)
--- NOTE | 2024-12-11 20:25 | ESHP_ITS ---
Documentation for date of: 12/11/24 HPI - Hospitalist History of Present Illness History of Present Illness: Weakness History of present illness: A 59-year-old male presented to the ER with the chief complaint of altered mental status. The patient's daughter reports that he has a history of stroke with right-sided weakness and expressive aphasia. He is usually independent in mobility and personal care using a bedside commode. However, since midnight, he has been lethargic, unable to stand on his own, and had three episodes of incontinence, which is atypical for him. He had a fall while holding onto a rail, hitting his head and right hip. Additionally, he experienced vomiting episodes after the fall and has been noted to have neck pain. No fever was initially reported by the family. The patient has a history of stroke, hypertension, hyperlipidemia, DM, and previous seizures post-stroke in 2013. He has undergone a PEG tube placement and trach in the past. His current medications include Keppra, Calcitriol, Amlodipine, Lisinopril, Escitalopram, Ezetimibe, Glipizide, and Aspirin. He has been off diabetic medications, with regular follow-ups showing no longer testing diabetic. He does not smoke or drink. His last hospitalization was approximately five to six years ago due to kidney issues, previously functioning at 40% but reportedly improved under nephrology care. His specialists include a inset cutter and pecan mallow dipper. In the Emergency Department, the patient was initially evaluated with vital signs: temperature 101?F, HR 120 bpm, RR 20, BP 99/59 mmHg. A sepsis alert was activated. Laboratory results revealed WBC 26.6, hemoglobin 15.5, platelets 240, Na 138, K 5.1, creatinine 2.3, lactic acid 2.6, phosphorus 1.8, and procalcitonin 0.98. Urinalysis showed WBC 206 and RBC 33. Imaging studies included a CT head with no acute hemorrhage, mass effect, or midline shift; a pelvic CT without acute hip or pelvic fracture; and a cervical CT with no acute cervical fracture. EKG showed sinus tachycardia. The patient was admitted for further management. Review of Systems Review of Systems Narrative Review of Systems: A 14 point review of systems was assessed and negative except for that per HPI Past Medical History Social History SMOKING STATUS: Never smoker Meds Home Medications and Allergies Home Medications ?Medication ?Instructions ?Recorded ?Confirmed ?Type aspirin 325 mg tablet 325 mg PO QDAY #0 tabs 06/13 /12/11/24 History amlodipine 10 mg tablet (Norvasc) 10 mg PO QDAY #0 tab s 07/06/17 12/11/24 History escitalopram oxalate 10 mg tablet 10 mg PO QDAY #0 tab s 07/06/17 12/11/24 History (Lexapro) ezetimibe 10 mg tablet (Zetia) 10 mg PO QDAY #0 tabs 0 07/06/17 12/11/24 History omeprazole 20 mg capsule,delayed 20 mg PO QDAY ##0 09/1112/11/24 History release levetiracetam 500 mg tablet 500 mg PO BID #0 tabs 06/2612/11/24 History (Keppra) calcitriol 0.25 mcg capsule mcg 12/11/24 History glipizide 5 mg tablet 5 mg PO QDAY 12/11/24 History lisinopril 20 mg tablet mg 12/11/24 History vitamin B complex-vitamin C-folic 1 tab PO QDAY 12/11/24 History acid 0.8 mg tablet (Dialyvite 800) Allergies Allergy/AdvReac Type Severity Reaction Status Date / Time meperidine Allergy Mild Itching Verified 10/28/18 21:47 clopidogrel AdvReac Severe TEMPORARY Verified 10/28/18 21:47 BLINDNESS morphine AdvReac Mild Nausea/Vomi Verified 10/28/18 21:47 tiing Exam Vital Signs Temp Pulse Resp BP Pulse Ox O2 Del Method 98.3 F 85 22 H 111/70 949 H Room Air 12/11/24 19:17 12/11/24 19:17 12/11/24 19:17 12/11/24 19:17 12/11/24 19:17 12/11/24 19:17 Narrative Constitutional: Male, in no apparent distress. Eyes: Extraocular movements intact. No ptosis. PERRL. Neck: Supple, trachea midline. No thyromegaly. Lungs: Clear and good breath sounds equally. No wheezing. No rhonchi. CV: S1, S2. Regular rate and rhythm. GI: Soft, nontender. No HSM. Musculoskeletal: No cyanosis, clubbing or edema. Neuro: Alert, non-verbal. Right sided weakness. Psychiatric: In a good mood. No signs of depression and is nonfocal. Skin: Warm and dry. No acute lesions. Results - Hospitalist Labs Diagrams: 12/11/24 15:20 12/11/24 15:20 Labs: Short CBC 12/11/24 Range/Units 15:20 WBC 26.6 H (3.8-10.6) Thou/mm3 Hgb 15.5 (13.5-16.0) g/dL Hct 46.3 (41.0-53.0) % Plt Count 240 (140-440) Thou/mm3 BMP 12/11/24 15:20 Sodium 138 Potassium 5.1 Chloride 105 Carbon Dioxide 23.7 BUN 38 H Creatinine 2.3 H Glucose 104 Calcium 11.3 H Cardiac Enzymes 12/11/24 12/11/24 Range/Units 15:20 17:08 Troponin I < 0.020 < 0.020 (0.0-0.045) ng/mL Liver Function 12/11/24 Range/Units 15:20 Total Bilirubin 0.8 (0.3-1.2) mg/dL AST 29 (0-34) U/L ALT 49 (10-49) U/L Alkaline Phosphatase 99 (46-116) U/L Albumin 4.8 (3.4-4.8) gm/dL Urine 12/11/24 12/11/24 12/11/24 Range/Units 17:12 17:12 17:12 Urine Color Yellow Cancelled (Lt Yel-Yel) Urine Clarity Hazy Cancelled (Clear/Hazy) Urine pH 5.5 (5.0-7.0) Ur Specific [place] (1.001-1.035) Urine Protein (Neg - Trace) Urine Glucose (UA) (Negative) 12/11/24 12/11/24 12/11/24 Range/Units 17:12 17:12 17:12 Urine Color (Lt Yel-Yel) Urine Clarity (Clear/Hazy) Urine pH Cancelled (5.0-7.0) Ur Specific [place] 1.020 Cancelled (1.001-1.035) Urine Protein 1+ A Cancelled (Neg - Trace) Urine Glucose (UA) Negative (Negative) 12/11/24 Range/Units 17:12 Urine Color (Lt Yel-Yel) Urine Clarity (Clear/Hazy) Urine pH (5.0-7.0) Ur Specific [place] (1.001-1.035) Urine Protein (Neg - Trace) Urine Glucose (UA) Cancelled (Negative) Assessment & Plan -Hospitalist Patient Synopsis Altered Mental Status, Suspected Sepsis * Assessment: The patient presents with acute lethargy, inability to ambulate, and incontinence, alongside fever, leukocytosis, and tachycardia, raising concern for sepsis. Urinalysis findings (WBC 206, RBC 33) suggest a urinary tract infection as a potential source. The elevated creatinine (2.3) compared to baseline indicates possible acute kidney injury, possibly due to sepsis or dehydration. No acute intracranial process or fractures were identified on imaging. * Plan: * Sepsis management: Broad-spectrum antibiotics, with adjustment based on culture results. * Fluid resuscitation: IV crystalloid fluids to optimize perfusion and support renal function. * Hemodynamic support: Monitor BP closely; will hold BP meds now. * Source control: Urine culture, blood cultures, and repeat lactate monitoring. * Fever management: Acetaminophen for temperature control. * Nephrology consult: Evaluate for JOAQUIN and optimize renal function. Acute Kidney Injury * Assessment: Elevated creatinine (2.3) compared to baseline suggests JOAQUIN, possibly due to sepsis, dehydration, or underlying renal disease. History of prior kidney dysfunction noted. * Plan: * Renal function monitoring: Serial creatinine and electrolyte checks. * Optimize volume status: IV fluids with careful monitoring to prevent fluid overload. * Avoid nephrotoxic agents: Hold NSAIDs and adjust renally cleared medications. * Electrolyte management: Monitor potassium closely given K+ of 5.1. * Nephrology consult: Evaluate for JOAQUIN and optimize renal function. Fall with Head and Neck Trauma * Assessment: Patient experienced a fall with head and neck impact, followed by vomiting and neck pain. CT head and cervical spine imaging ruled out acute hemorrhage or fracture. * Plan: * Neurologic monitoring: Frequent neuro checks for any delayed intracranial changes. * Pain management: Acetaminophen, avoiding NSAIDs due to JOAQUIN risk. * Monitor for post-fall complications: Worsening confusion, prolonged vomiting, or new focal deficits. Seizure History and Stroke Sequelae * Assessment: History of prior stroke with residual deficits and post-stroke seizures, currently on Keppra. No witnessed seizure activity reported. * Plan: * Continue Keppra: Ensure adherence to prevent breakthrough seizures. * Hold aspirin now due to hematuria Chronic Conditions Management * Hypertension & Hyperlipidemia: Hold home BP medications now, adjusting as needed based on BP trends and renal function. * Diabetes: Patient reportedly no longer requiring diabetic medications; monitor glucose levels during acute illness. * Psychiatric History: Continue escitalopram; assess for delirium contributing to altered mentation. * Will hold calcitriol now due to hypercalcemia DVT prophylaxis: SCD now due to hematuria Quality Measures Quality Measures none Advance care planning discussed with:: patient and child
[2024-12-11] MEDS: levETIRAcetam 250 MG TABLET 500 MG PO (21:28)
[2024-12-11] MEDS: ACETAMINOPHEN 325 MG TABLET 650 MG PO (23:36)
--- NOTE | 2024-12-11 23:45 | PC.NURSE ---
pt confused and restless. Checked temp . 103.0 tylenol given.
[2024-12-11] MEDS: SODIUM CHLORIDE 0.9% 1000 ML 1,000 ML 100 ML IV (23:47)
[2024-12-12] VITALS (9 sets, daily range): BP systolic 109–132; BP diastolic 62–92; PULSE 86–133; RESP 17–95; TEMP 36.2–37.7; O2SAT 92–96; BMI 26.2
--- NOTE | 2024-12-12 00:12 | PC.NURSE ---
report called to Darya ZUNIGA. pt taken to rm
[2024-12-12] MEDS: SOD PHOS ADDITIVE 15 MMOL in SODIUM CHLORIDE 0.9% 250 ML 250 ML 62.5 MMOL IV (01:12)
[2024-12-12 05:56] LABS: Basophils # (Auto) 0.1 Thou/mm3 (0.0-0.2); Basophils % (Auto) 0 % (0-2.5); Eosinophils % (Auto) 0 % (0-10); Hematocrit 40.8 % (41.0-53.0); Hemoglobin 13.4 g/dL (13.5-16.0); Immature Granulocytes % (Auto) 1 % (0-0); Immature Granulocytes Auto 0.35 Thou/mm3 (0.00-0.00); Lymphocytes # (Auto) 1.9 Thou/mm3 (1.0-4.8); Lymphocytes % (Auto) 8 % (10-50); Mean Corpuscular HGB Conc 32.8 g/dl (31.0-37.0); Mean Corpuscular Hemoglobin 28.9 pg (25.0-35.0); Mean Corpuscular Volume 88 fL (80-100); Monocytes % (Auto) 8 % (0-12); Neutrophils % (Auto) 83 % (37-80); Nucleated Red Blood Cell % 0 /100 WBC (0); Platelet Count 197 Thou/mm3 (140-440); RDW Standard Deviation 45.8 fL (35.1-43.9); Red Blood Count 4.64 Miln/mm3 (4.50-5.90); White Blood Count 25.3 Thou/mm3 (3.8-10.6)
[2024-12-12 06:25] LABS: Anion Gap 9 (7-16); BUN/Creatinine Ratio 17 Ratio (12-20); Blood Urea Nitrogen 32 mg/dL (9-23); Calcium 10.4 mg/dL (8.3-10.6); Carbon Dioxide 24.9 mMol/L (20.0-31.0); Chloride 111 mMol/L (98-107); Creatinine (Component) 1.9 mg/dL (0.6-1.3); Estimated Creatinine Clearance 36.2 mL/min (>60); Glucose 73 mg/dL (74-106); Osmolality,Calculated 294 (275-295); Potassium 4.8 mMol/L (3.4-5.1); Sodium 145 mMol/L (136-145); eGFR 37 See Note
[2024-12-12] MEDS: levETIRAcetam 250 MG TABLET 500 MG PO ×2 (09:30→20:24)
--- NOTE | 2024-12-12 09:44 | ESPR_ITS ---
<Statement entered by Mildred Rayo MD - 12/12/24 13:24> I discussed with and supervised my co-resident involved in the care of this patient. I agree with the assessment and plan as documented above. Patient seen at bedside. Overnight, TMax of 103. Leukocytosis at 25, and JOAQUIN improving. Phosphate repleted. Will continue ceftriaxone for his UTI, and follow up on cultures. Will follow up with drive shaft and steering post repairer Dr. Rosenberg for his JOAQUIN on CKD. Mildred Rayo MD PGY-3 Documentation for date of: 12/12/24 Subjective Subjective Interval history: Patient seen and examined at bedside. Daughter Cassie was also at bedside who was able to provide a lot of the history. She stated that patient is typically able to complete activities of daily living and are able to communicate properly with hand gestures. He has no issues with incontinence in the past. Patient is able to follow commands, exhibiting weakness in right arm due to the stroke. Slight improvement in WBC today 25. JOAQUIN improving with Cr 1.9. Continue ceftriaxone 1g daily for UTI Cultures still pending. Exam Vital Signs Temp Pulse Resp BP Pulse Ox O2 Del Method 98.4 F 102 H 17 122/77 95 Room Air 12/12/24 08:00 12/12/24 08:00 12/12/24 08:00 12/12/24 08:00 12/12/24 08:00 12/12/24 08:00 Narrative Exam General: Elerdly male, well kept, sleeping, No acute distress HEENT: NCAT, No JVD noted. Mucosa moist. Pupils are equal and reactive to light bilaterally Cardiovascular: Normal S1 and S2. Regular rate and rhythm. Respiratory: Lungs are clear to auscultation bilaterally. No wheezing or crackles heard. Abdomen: Soft, nontender, not distended, normal bowel sounds. Skin: Warm to touch, dry, no rashes noted Musculoskeletal: No gross injuries. Able to move all 4 extremities. No pitting edema Neuro: Per daughter, patient is at baseline. Right arm weakness, apashia, follows simple commands Objective Labs 12/12/24 04:07 12/12/24 04:07 Labs: Laboratory Results - last 24 hr 12/11/24 12/11/24 12/11/24 15:20 17:08 17:12 WBC 26.6 H RBC 5.40 Hgb 15.5 Hct 46.3 MCV 86 MCH 28.7 MCHC 33.5 RDW Std Deviation 43.8 Plt Count 240 Neut % (Auto) 86 H Lymph % (Auto) 5 L [place] % (Auto) 8 Eos % (Auto) 0 Baso % (Auto) 0 Neut # (Auto) 22.8 H Lymph # (Auto) 1.4 [place] # (Auto) 2.0 H Eos # (Auto) 0.0 Baso # (Auto) 0.1 Immature Gran # (Auto) 0.27 H Absolute Nucleated RBC 0.00 Immature Gran % 1 H Nucleated RBC % 0 PT 12.7 H INR 1.2 APTT 29.1 Sodium 138 Potassium 5.1 Chloride 105 Carbon Dioxide 23.7 Anion Gap 9 BUN 38 H Creatinine 2.3 H Estim Creat Clear Calc 29.9 L eGFR 30 L BUN/Creatinine Ratio 17 Glucose 104 Calculated Osmolality 284 Lactic Acid 2.6 H Calcium 11.3 H Corrected Calcium 11.3 H Phosphorus 1.8 L Magnesium 2.3 Total Bilirubin 0.8 AST 29 ALT 49 Alkaline Phosphatase 99 Lactate Dehydrogenase 190 Troponin I < 0.020 < 0.020 B-Natriuretic Peptide 33 31 Total Protein 7.5 Albumin 4.8 Globulin 2.7 Albumin/Globulin Ratio 1.8 Lipase 47 Procalcitonin 0.98 H Ur Collection Type Voided Urine Color Urine Clarity Urine pH Ur Specific [place] Urine Protein Urine Glucose (UA) Urine Ketones Urine Blood Urine Nitrite Urine Bilirubin Urine Urobilinogen (Auto) Ur Leukocyte Esterase Urine RBC Urine WBC Ur Squamous Epith Cells Ur Transition Epith Cell Ur Renal Epithelial Cell Calcium Carbonate Cryst Calcium Phosphate Cryst Calcium Oxalate Crystal Leucine Crystals Cystine Crystals Uric Acid Crystals Triple Phos Crystals Tyrosine Crystals Amorphous Crystals Urine Bacteria Cellular Casts Epithelial Casts Fatty Casts Hyaline Casts Granular Casts Waxy Casts Broad Casts RBC Casts Urine Mucus Urine Trichomonas Ur Yeast w Hyphae Urine Yeast (Budding) Urine Sperm Ur Oval Fat Bodies Ur Culture Indicated? Urine Opiates Screen Urine Fentanyl Screen Ur Barbiturates Screen U Amphetamin/Meth Scrn U Benzodiazepines Scrn U Cocaine Metab Screen U Marijuana (THC) Screen 12/11/24 12/11/24 12/11/24 17:12 17:12 17:12 WBC RBC Hgb Hct MCV MCH MCHC RDW Std Deviation Plt Count Neut % (Auto) Lymph % (Auto) [place] % (Auto) Eos % (Auto) Baso % (Auto) Neut # (Auto) Lymph # (Auto) [place] # (Auto) Eos # (Auto) Baso # (Auto) Immature Gran # (Auto) Absolute Nucleated RBC Immature Gran % Nucleated RBC % PT INR APTT Sodium Potassium Chloride Carbon Dioxide Anion Gap BUN Creatinine Estim Creat Clear Calc eGFR BUN/Creatinine Ratio Glucose Calculated Osmolality Lactic Acid Calcium Corrected Calcium Phosphorus Magnesium Total Bilirubin AST ALT Alkaline Phosphatase Lactate Dehydrogenase Troponin I B-Natriuretic Peptide Total Protein Albumin Globulin Albumin/Globulin Ratio Lipase Procalcitonin Ur Collection Type Cancelled Urine Color Yellow Cancelled Urine Clarity Hazy Cancelled Urine pH 5.5 Ur Specific [place] Urine Protein Urine Glucose (UA) Urine Ketones Urine Blood Urine Nitrite Urine Bilirubin Urine Urobilinogen (Auto) Ur Leukocyte Esterase Urine RBC Urine WBC Ur Squamous Epith Cells Ur Transition Epith Cell Ur Renal Epithelial Cell Calcium Carbonate Cryst Calcium Phosphate Cryst Calcium Oxalate Crystal Leucine Crystals Cystine Crystals Uric Acid Crystals Triple Phos Crystals Tyrosine Crystals Amorphous Crystals Urine Bacteria Cellular Casts Epithelial Casts Fatty Casts Hyaline Casts Granular Casts Waxy Casts Broad Casts RBC Casts Urine Mucus Urine Trichomonas Ur Yeast w Hyphae Urine Yeast (Budding) Urine Sperm Ur Oval Fat Bodies Ur Culture Indicated? Urine Opiates Screen Urine Fentanyl Screen Ur Barbiturates Screen U Amphetamin/Meth Scrn U Benzodiazepines Scrn U Cocaine Metab Screen U Marijuana (THC) Screen 12/11/24 12/11/24 12/11/24 17:12 17:12 17:12 WBC RBC Hgb Hct MCV MCH MCHC RDW Std Deviation Plt Count Neut % (Auto) Lymph % (Auto) [place] % (Auto) Eos % (Auto) Baso % (Auto) Neut # (Auto) Lymph # (Auto) [place] # (Auto) Eos # (Auto) Baso # (Auto) Immature Gran # (Auto) Absolute Nucleated RBC Immature Gran % Nucleated RBC % PT INR APTT Sodium Potassium Chloride Carbon Dioxide Anion Gap BUN Creatinine Estim Creat Clear Calc eGFR BUN/Creatinine Ratio Glucose Calculated Osmolality Lactic Acid Calcium Corrected Calcium Phosphorus Magnesium Total Bilirubin AST ALT Alkaline Phosphatase Lactate Dehydrogenase Troponin I B-Natriuretic Peptide Total Protein Albumin Globulin Albumin/Globulin Ratio Lipase Procalcitonin Ur Collection Type Urine Color Urine Clarity Urine pH Cancelled Ur Specific [place] 1.020 Cancelled Urine Protein 1+ A Cancelled Urine Glucose (UA) Negative Urine Ketones Urine Blood Urine Nitrite Urine Bilirubin Urine Urobilinogen (Auto) Ur Leukocyte Esterase Urine RBC Urine WBC Ur Squamous Epith Cells Ur Transition Epith Cell Ur Renal Epithelial Cell Calcium Carbonate Cryst Calcium Phosphate Cryst Calcium Oxalate Crystal Leucine Crystals Cystine Crystals Uric Acid Crystals Triple Phos Crystals Tyrosine Crystals Amorphous Crystals Urine Bacteria Cellular Casts Epithelial Casts Fatty Casts Hyaline Casts Granular Casts Waxy Casts Broad Casts RBC Casts Urine Mucus Urine Trichomonas Ur Yeast w Hyphae Urine Yeast (Budding) Urine Sperm Ur Oval Fat Bodies Ur Culture Indicated? Urine Opiates Screen Urine Fentanyl Screen Ur Barbiturates Screen U Amphetamin/Meth Scrn U Benzodiazepines Scrn U Cocaine Metab Screen U Marijuana (THC) Screen 12/11/24 12/11/24 12/11/24 17:12 17:12 17:12 WBC RBC Hgb Hct MCV MCH MCHC RDW Std Deviation Plt Count Neut % (Auto) Lymph % (Auto) [place] % (Auto) Eos % (Auto) Baso % (Auto) Neut # (Auto) Lymph # (Auto) [place] # (Auto) Eos # (Auto) Baso # (Auto) Immature Gran # (Auto) Absolute Nucleated RBC Immature Gran % Nucleated RBC % PT INR APTT Sodium Potassium Chloride Carbon Dioxide Anion Gap BUN Creatinine Estim Creat Clear Calc eGFR BUN/Creatinine Ratio Glucose Calculated Osmolality Lactic Acid Calcium Corrected Calcium Phosphorus Magnesium Total Bilirubin AST ALT Alkaline Phosphatase Lactate Dehydrogenase Troponin I B-Natriuretic Peptide Total Protein Albumin Globulin Albumin/Globulin Ratio Lipase Procalcitonin Ur Collection Type Urine Color Urine Clarity Urine pH Ur Specific [place] Urine Protein Urine Glucose (UA) Cancelled Urine Ketones Negative Cancelled Urine Blood 2+ A Cancelled Urine Nitrite Negative Urine Bilirubin Urine Urobilinogen (Auto) Ur Leukocyte Esterase Urine RBC Urine WBC Ur Squamous Epith Cells Ur Transition Epith Cell Ur Renal Epithelial Cell Calcium Carbonate Cryst Calcium Phosphate Cryst Calcium Oxalate Crystal Leucine Crystals Cystine Crystals Uric Acid Crystals Triple Phos Crystals Tyrosine Crystals Amorphous Crystals Urine Bacteria Cellular Casts Epithelial Casts Fatty Casts Hyaline Casts Granular Casts Waxy Casts Broad Casts RBC Casts Urine Mucus Urine Trichomonas Ur Yeast w Hyphae Urine Yeast (Budding) Urine Sperm Ur Oval Fat Bodies Ur Culture Indicated? Urine Opiates Screen Urine Fentanyl Screen Ur Barbiturates Screen U Amphetamin/Meth Scrn U Benzodiazepines Scrn U Cocaine Metab Screen U Marijuana (THC) Screen 12/11/24 12/11/24 12/11/24 17:12 17:12 17:12 WBC RBC Hgb Hct MCV MCH MCHC RDW Std Deviation Plt Count Neut % (Auto) Lymph % (Auto) [place] % (Auto) Eos % (Auto) Baso % (Auto) Neut # (Auto) Lymph # (Auto) [place] # (Auto) Eos # (Auto) Baso # (Auto) Immature Gran # (Auto) Absolute Nucleated RBC Immature Gran % Nucleated RBC % PT INR APTT Sodium Potassium Chloride Carbon Dioxide Anion Gap BUN Creatinine Estim Creat Clear Calc eGFR BUN/Creatinine Ratio Glucose Calculated Osmolality Lactic Acid Calcium Corrected Calcium Phosphorus Magnesium Total Bilirubin AST ALT Alkaline Phosphatase Lactate Dehydrogenase Troponin I B-Natriuretic Peptide Total Protein Albumin Globulin Albumin/Globulin Ratio Lipase Procalcitonin Ur Collection Type Urine Color Urine Clarity Urine pH Ur Specific [place] Urine Protein Urine Glucose (UA) Urine Ketones Urine Blood Urine Nitrite Cancelled Urine Bilirubin Negative Cancelled Urine Urobilinogen (Auto) Negative Cancelled Ur Leukocyte Esterase Positive Urine RBC Urine WBC Ur Squamous Epith Cells Ur Transition Epith Cell Ur Renal Epithelial Cell Calcium Carbonate Cryst Calcium Phosphate Cryst Calcium Oxalate Crystal Leucine Crystals Cystine Crystals Uric Acid Crystals Triple Phos Crystals Tyrosine Crystals Amorphous Crystals Urine Bacteria Cellular Casts Epithelial Casts Fatty Casts Hyaline Casts Granular Casts Waxy Casts Broad Casts RBC Casts Urine Mucus Urine Trichomonas Ur Yeast w Hyphae Urine Yeast (Budding) Urine Sperm Ur Oval Fat Bodies Ur Culture Indicated? Urine Opiates Screen Urine Fentanyl Screen Ur Barbiturates Screen U Amphetamin/Meth Scrn U Benzodiazepines Scrn U Cocaine Metab Screen U Marijuana (THC) Screen 12/11/24 12/11/24 12/11/24 17:12 17:12 17:12 WBC RBC Hgb Hct MCV MCH MCHC RDW Std Deviation Plt Count Neut % (Auto) Lymph % (Auto) [place] % (Auto) Eos % (Auto) Baso % (Auto) Neut # (Auto) Lymph # (Auto) [place] # (Auto) Eos # (Auto) Baso # (Auto) Immature Gran # (Auto) Absolute Nucleated RBC Immature Gran % Nucleated RBC % PT INR APTT Sodium Potassium Chloride Carbon Dioxide Anion Gap BUN Creatinine Estim Creat Clear Calc eGFR BUN/Creatinine Ratio Glucose Calculated Osmolality Lactic Acid Calcium Corrected Calcium Phosphorus Magnesium Total Bilirubin AST ALT Alkaline Phosphatase Lactate Dehydrogenase Troponin I B-Natriuretic Peptide Total Protein Albumin Globulin Albumin/Globulin Ratio Lipase Procalcitonin Ur Collection Type Urine Color Urine Clarity Urine pH Ur Specific [place] Urine Protein Urine Glucose (UA) Urine Ketones Urine Blood Urine Nitrite Urine Bilirubin Urine Urobilinogen (Auto) Ur Leukocyte Esterase Cancelled Urine RBC 33 H Cancelled Urine WBC 206 H Cancelled Ur Squamous Epith Cells 1 Ur Transition Epith Cell Ur Renal Epithelial Cell Calcium Carbonate Cryst Calcium Phosphate Cryst Calcium Oxalate Crystal Leucine Crystals Cystine Crystals Uric Acid Crystals Triple Phos Crystals Tyrosine Crystals Amorphous Crystals Urine Bacteria Cellular Casts Epithelial Casts Fatty Casts Hyaline Casts Granular Casts Waxy Casts Broad Casts RBC Casts Urine Mucus Urine Trichomonas Ur Yeast w Hyphae Urine Yeast (Budding) Urine Sperm Ur Oval Fat Bodies Ur Culture Indicated? Urine Opiates Screen Urine Fentanyl Screen Ur Barbiturates Screen U Amphetamin/Meth Scrn U Benzodiazepines Scrn U Cocaine Metab Screen U Marijuana (THC) Screen 12/11/24 12/11/24 12/11/24 17:12 17:12 20:04 WBC RBC Hgb Hct MCV MCH MCHC RDW Std Deviation Plt Count Neut % (Auto) Lymph % (Auto) [place] % (Auto) Eos % (Auto) Baso % (Auto) Neut # (Auto) Lymph # (Auto) [place] # (Auto) Eos # (Auto) Baso # (Auto) Immature Gran # (Auto) Absolute Nucleated RBC Immature Gran % Nucleated RBC % PT INR APTT Sodium Potassium Chloride Carbon Dioxide Anion Gap BUN Creatinine Estim Creat Clear Calc eGFR BUN/Creatinine Ratio Glucose Calculated Osmolality Lactic Acid 2.0 Calcium Corrected Calcium Phosphorus Magnesium Total Bilirubin AST ALT Alkaline Phosphatase Lactate Dehydrogenase Troponin I B-Natriuretic Peptide Total Protein Albumin Globulin Albumin/Globulin Ratio Lipase Procalcitonin Ur Collection Type Urine Color Urine Clarity Urine pH Ur Specific [place] Urine Protein Urine Glucose (UA) Urine Ketones Urine Blood Urine Nitrite Urine Bilirubin Urine Urobilinogen (Auto) Ur Leukocyte Esterase Urine RBC Urine WBC Ur Squamous Epith Cells Cancelled Ur Transition Epith Cell Cancelled Ur Renal Epithelial Cell Cancelled Calcium Carbonate Cryst Cancelled Calcium Phosphate Cryst Cancelled Calcium Oxalate Crystal Cancelled Leucine Crystals Cancelled Cystine Crystals Cancelled Uric Acid Crystals Cancelled Triple Phos Crystals Cancelled Tyrosine Crystals Cancelled Amorphous Crystals Cancelled Urine Bacteria 1+ A Cancelled Cellular Casts Cancelled Epithelial Casts Cancelled Fatty Casts Cancelled Hyaline Casts Cancelled Granular Casts Cancelled Waxy Casts Cancelled Broad Casts Cancelled RBC Casts Cancelled Urine Mucus Cancelled Urine Trichomonas Cancelled Ur Yeast w Hyphae Cancelled Urine Yeast (Budding) Cancelled Urine Sperm Cancelled Ur Oval Fat Bodies Cancelled Ur Culture Indicated? Yes Urine Opiates Screen Negative Urine Fentanyl Screen Negative Ur Barbiturates Screen Negative U Amphetamin/Meth Scrn Negative U Benzodiazepines Scrn Negative U Cocaine Metab Screen Negative U Marijuana (THC) Screen Negative 12/12/24 04:07 WBC 25.3 H RBC 4.64 Hgb 13.4 L D Hct 40.8 L MCV 88 MCH 28.9 MCHC 32.8 RDW Std Deviation 45.8 H Plt Count 197 D Neut % (Auto) 83 H Lymph % (Auto) 8 L [place] % (Auto) 8 Eos % (Auto) 0 Baso % (Auto) 0 Neut # (Auto) 21.0 H Lymph # (Auto) 1.9 [place] # (Auto) 2.0 H Eos # (Auto) 0.0 Baso # (Auto) 0.1 Immature Gran # (Auto) 0.35 H Absolute Nucleated RBC 0.00 Immature Gran % 1 H Nucleated RBC % 0 PT INR APTT Sodium 145 Potassium 4.8 Chloride 111 H Carbon Dioxide 24.9 Anion Gap 9 BUN 32 H Creatinine 1.9 H Estim Creat Clear Calc 36.2 L eGFR 37 L BUN/Creatinine Ratio 17 Glucose 73 L Calculated Osmolality 294 Lactic Acid Calcium 10.4 Corrected Calcium Phosphorus Magnesium Total Bilirubin AST ALT Alkaline Phosphatase Lactate Dehydrogenase Troponin I B-Natriuretic Peptide Total Protein Albumin Globulin Albumin/Globulin Ratio Lipase Procalcitonin Ur Collection Type Urine Color Urine Clarity Urine pH Ur Specific [place] Urine Protein Urine Glucose (UA) Urine Ketones Urine Blood Urine Nitrite Urine Bilirubin Urine Urobilinogen (Auto) Ur Leukocyte Esterase Urine RBC Urine WBC Ur Squamous Epith Cells Ur Transition Epith Cell Ur Renal Epithelial Cell Calcium Carbonate Cryst Calcium Phosphate Cryst Calcium Oxalate Crystal Leucine Crystals Cystine Crystals Uric Acid Crystals Triple Phos Crystals Tyrosine Crystals Amorphous Crystals Urine Bacteria Cellular Casts Epithelial Casts Fatty Casts Hyaline Casts Granular Casts Waxy Casts Broad Casts RBC Casts Urine Mucus Urine Trichomonas Ur Yeast w Hyphae Urine Yeast (Budding) Urine Sperm Ur Oval Fat Bodies Ur Culture Indicated? Urine Opiates Screen Urine Fentanyl Screen Ur Barbiturates Screen U Amphetamin/Meth Scrn U Benzodiazepines Scrn U Cocaine Metab Screen U Marijuana (THC) Screen Quality Measures Quality Measures none Advance care planning discussed with:: child Assessment & Plan Assessment Current Active Medications: Generic Name Dose Route Start Last Admin Trade Name Freq PRN Reason Stop Dose Admin Acetaminophen 650 mg 12/11/24 19:43 12/11/24 23:36 Acetaminophen 325 Mg Tablet PO 01/10/25 19:42 650 mg Q6H PRN Administration Fever >101.5 Dextrose 25 ml 12/11/24 19:50 Dextrose 50%-Water Inj 50 Ml Syringe IV 01/10/25 19:49 Q15MIN PRN BG 50-70 responsive npo pt Dextrose 50 ml 12/11/24 19:50 Dextrose 50%-Water Inj 50 Ml Syringe IV 01/10/25 19:49 Q15MIN PRN BG <50 OR BG <70 & pt unresponsive Escitalopram Oxalate 10 mg 12/12/24 21:00 Escitalopram Oxalate 10 Mg Tablet PO 01/11/25 20:59 HS [facility] Glucagon 1 mg 12/11/24 19:50 Glucagon Inj 1 Mg Vial IM Q15MIN PRN BG <70, and no IV access Ceftriaxone Sodium/Dextrose 50 mls @ 100 mls/hr 12/12/24 21:00 Rocephin/D5w 1gm Iv Premix IV 12/19/24 20:59 DAILY@2100 [facility] Insulin Human Regular 0 unit 12/12/24 07:30 12/12/24 08:09 Insulin Hum Regular 1 Unit/0.01 Ml (Per Unit) SC 01/11/25 07:29 Not Given AC [facility] Protocol Levetiracetam 500 mg 12/12/24 09:30 12/12/24 09:30 Levetiracetam 250 Mg Tablet PO 01/11/25 09:29 500 mg BID [facility] Administration Plan Zachary Aguilar is 69 yr male with PMH of HTN, CKD, HLD, CVA with apashia, controlled DM, hx seizures who presented after a fall. Head imaging was negative for hemorrhage/fractures. Patient was admitted for sepsis 2/2 UTI. #Sepsis 2/2 UTI #Complicated UTI Per family, patient was having episodes of incontinence. Normally this is not an issue. UA positive for UTI. -continue normal saline 100cc/hr -ceftriaxone 1g daily (12/12--) #JOAQUIN on CKD IIIb Elevated creatinine (2.3) compared to baseline Ddx: sepsis, poor oral intake -nephrology consulted -maintenance fluids -avoid nephrotoxic agents -daily CMP -bladder scan #Ground level fall Per family at bedside, patient had sudden onset cramp/sciatic pain in the buttocks. Due to the sudden pain patient had lifted his leg and slipped. Not able to grab the railing in time and fell. No history of recurrent falls. CT head negative for hemorrhage, cervical spine imaging negative for fracture. -continue to monitor #Hx seizure disorder Patient has been seizure-free for many years now. Started on current seizure regimen by Dr. Engle. -Continue Keppra 500 mg twice daily #Hx CVA #Expressive aphasia #Hx HTN Family stated that patient had [place] episode preceding the stroke in 2012. Patient does follow with dental hygiene professor Dr. Wong. Underwent previous angiogram and stress test which was negative for any atherosclerotic disease. -Takes 325 mg aspirin daily (unaware at this time if neurology VS cardiology has started patient on this dose since 2012) #Hx depression (?) -Continue escitalopram 10 mg daily #controlled type 2 diabetes mellitus Health maintenance: Dispo: abx for UTI, cultures pending DVT prophylaxis: SCDs CODE STATUS: Full code Diet: Regular The patient's management plan was discussed with my attending physician Dr. Larios and senior Dr. Rayo. Amber Ch, PGY-1
--- NOTE | 2024-12-12 09:59 | PD.NEPHCONS ---
History of Present Illness Data of Consult Consult date: 12/12/24 Requesting Physician: Enoc Cobb MD Primary Care Provider: Kristi Nino Consult Narrative Reason for consult: JOAQUIN on CKD History of present illness: Informant daughter Cassie Aguilar is a 59-year-old gentleman with a history of stroke few years ago with a right-sided weakness, expressive aphasia, CKD stage III (used to follow-up with me), hypertension, dyslipidemia, diabetes, history of seizures post to stroke in 2013, history of PEG and trach in the past presented to the emergency department with altered mental status Patient had also falls and hit his head. He was having some nausea vomiting prior to that. Daughter brought him to the emergency department. His current medications include Keppra, Calcitriol, Amlodipine, Lisinopril, Escitalopram, Ezetimibe, and Aspirin. He has been off diabetic medication-glipizide, with regular follow-ups showing no longer testing diabetic. He does not smoke or drink. In the Emergency Department, the patient was initially evaluated with vital signs: temperature 101?F, HR 120 bpm, RR 20, BP 99/59 mmHg. A sepsis alert was activated. Laboratory results revealed WBC 26.6, hemoglobin 15.5, platelets 240, Na 138, K 5.1, creatinine 2.3, lactic acid 2.6, phosphorus 1.8, and procalcitonin 0.98. Urinalysis showed WBC 206 and RBC 33. Imaging studies included a CT head with no acute hemorrhage, mass effect, or midline shift; a pelvic CT without acute hip or pelvic fracture; and a cervical CT with no acute cervical fracture. EKG showed sinus tachycardia. 12/12/2024 Nephrology consultation requested for acute renal failure. Patient currently seen in medical floor. Blood pressure 115/86, heart rate 110. Blood sugar 160. WBC 25.3, hemoglobin 13.4, platelets 197. Sodium 145, potassium 4.8, BUN 32, creatinine 1.9 cc:: cc: Enoc Cobb MD Review of Systems Review of Systems Narrative Review of Systems: Unable to get any information due to stroke and expressive aphasia. Daughter at bedside and stated patient was having significant weakness and was altered. He is more alert and awake now. Past Medical History Past Medical History NEUROLOGIC: Positive Neurological Disorders and Cerebrovascular Accident (2012) CARDIAC: Positive Hypertension; Negative Congestive Heart Failure RESPIRATORY: Negative Chronic Obstructive Pulmonary Disease (COPD) GENITOURINARY: Positive Genitourinary Disorders and Renal Disease ENDOCRINE: Negative Diabetes Mellitus Type 1 or Diabetes Mellitus Type 2 PSYCHO/SOCIAL: Positive Recreational Drug Use OTHER HISTORY: Positive Falls (Last 12/10/24); Negative Blood Transfusions or Anesthesia Reactions Surgical History SURGICAL: Positive Gastrostomy and Amputation (3rd middle finger) Social History SMOKING STATUS: Never smoker Meds Home Medications and Allergies Home Medications ?Medication ?Instructions ?Recorded ?Confirmed ?Type aspirin 325 mg tablet 325 mg PO QDAY #0 tabs 06/13/14 12/11/24 History amlodipine 10 mg tablet (Norvasc) 10 mg PO QDAY #0 tabs 07/06/17 12/11/24 History escitalopram oxalate 10 mg tablet 10 mg PO QDAY #0 tabs 07/06/17 12/11/24 History (Lexapro) ezetimibe 10 mg tablet (Zetia) 10 mg PO QDAY #0 tabs 07/06/17 12/11/24 History omeprazole 20 mg capsule,delayed 20 mg PO QDAY ##0 07/06/17 12/11/24 History release levetiracetam 500 mg tablet 500 mg PO BID #0 tabs 07/07/17 12/11/24 History (Keppra) calcitriol 0.25 mcg capsule 0.25 mcg PO HS 12/11/24 12/12/24 History glipizide 5 mg tablet 5 mg PO QDAY 12/11/24 12/11/24 History lisinopril 20 mg tablet 20 mg PO .AM 12/11/24 12/12/24 History vitamin B complex-vitamin C-folic 1 tab PO QDAY 12/11/24 12/11/24 History acid 0.8 mg tablet (Dialyvite 800) Allergies Allergy/AdvReac Type Severity Reaction Status Date / Time meperidine Allergy Mild Itching Verified 10/28/18 21:47 clopidogrel AdvReac Severe TEMPORARY Verified 10/28/18 21:47 BLINDNESS morphine AdvReac Mild Nausea/Vomi Verified 10/28/18 21:47 tiing Exam Vital Signs Temp Pulse Resp BP Pulse Ox O2 Del Method 36.9 C 102 H 17 122/77 95 Room Air 12/12/24 08:00 12/12/24 08:00 12/12/24 08:00 12/12/24 08:00 12/12/24 08:00 12/12/24 08:00 Narrative Exam GENERAL APPEARANCE: Patient currently seen in medical floor Dry mucosa NECK: Neck supple, no JVD or bruit CARDIOVASCULAR: Heart regular, no murmurs LUNGS/CHEST: Chest clear to auscultation. No rales, rhonchi, wheezing ABDOMEN: Soft, nontender, nondistended. No masses. Normal bowel sounds. EXTREMITIES: No edema, clubbing or cyanosis. SKIN: Skin exam normal without any rashes MUSCULOSKELETAL: In bed NEUROLOGICAL : Expressive aphasia with weakness. Right hemiplegia from the previous stroke Results Labs 12/12/24 04:07 12/12/24 04:07 Labs: Short CBC 12/11/24 12/12/24 Range/Units 15:20 04:07 WBC 26.6 H 25.3 H (3.8-10.6) Thou/mm3 Hgb 15.5 13.4 L D (13.5-16.0) g/dL Hct 46.3 40.8 L (41.0-53.0) % Plt Count 240 197 D (140-440) Thou/mm3 BMP 12/11/24 12/12/24 15:20 04:07 Sodium 138 145 Potassium 5.1 4.8 Chloride 105 111 H Carbon Dioxide 23.7 24.9 BUN 38 H 32 H Creatinine 2.3 H 1.9 H Glucose 104 73 L Calcium 11.3 H 10.4 Cardiac Enzymes 12/11/24 12/11/24 Range/Units 15:20 17:08 Troponin I < 0.020 < 0.020 (0.0-0.045) ng/mL Liver Function 12/11/24 Range/Units 15:20 Total Bilirubin 0.8 (0.3-1.2) mg/dL AST 29 (0-34) U/L ALT 49 (10-49) U/L Alkaline Phosphatase 99 (46-116) U/L Albumin 4.8 (3.4-4.8) gm/dL Urine 12/11/24 12/11/24 12/11/24 Range/Units 17:12 17:12 17:12 Urine Color Yellow Cancelled (Lt Yel-Yel) Urine Clarity Hazy Cancelled (Clear/Hazy) Urine pH 5.5 (5.0-7.0) Ur Specific [place] (1.001-1.035) Urine Protein (Neg - Trace) Urine Glucose (UA) (Negative) 12/11/24 12/11/24 12/11/24 Range/Units 17:12 17:12 17:12 Urine Color (Lt Yel-Yel) Urine Clarity (Clear/Hazy) Urine pH Cancelled (5.0-7.0) Ur Specific [place] 1.020 Cancelled (1.001-1.035) Urine Protein 1+ A Cancelled (Neg - Trace) Urine Glucose (UA) Negative (Negative) 12/11/24 Range/Units 17:12 Urine Color (Lt Yel-Yel) Urine Clarity (Clear/Hazy) Urine pH (5.0-7.0) Ur Specific [place] (1.001-1.035) Urine Protein (Neg - Trace) Urine Glucose (UA) Cancelled (Negative) Assessment & Plan Assessment and plan (1) JOAQUIN (acute kidney injury): Status: Acute Assessment and plan: JOAQUIN secondary to prerenal azotemia. Patient has decreased p.o. intake for the last few days. Traumatic In-N-Out catheter and had some bleeding this morning. Currently urine in the brief seems to be less bloody. Creatinine improving with IV fluids. Continue with fluid resuscitation. Renal ultrasound, strict I&O's ordered. (2) Sepsis: Status: Acute Assessment and plan: Secondary to UTI. Antibiotics given. (3) Acute UTI: Status: Acute (4) Hypertension: Status: Chronic Assessment and plan: Blood pressure in fact on the lower side. Hold off on lisinopril, amlodipine. (5) History of stroke: Status: Chronic Assessment and plan: History of stroke with seizures. On Keppra. Additional Assessment & Plan Additional Plan: Thank you Dr. Cobb for allowing me to participate in the care of Mr. Aguilar. Plan of care discussed with daughter at bedside.
--- NOTE | 2024-12-12 10:24 | CHAP ---
Patient expressed gratitude for visit and prayer.
--- NOTE | 2024-12-12 18:36 | PC.NURSE ---
patient had ECHO done at [phone], info provided by family
[2024-12-12] MEDS: ESCITALOPRAM OXALATE 10 MG TABLET PO (20:24)
[2024-12-12] MEDS: cefTRIAXone SOD INJ 1,000 MG VIAL 1000 MG (21:14)
[2024-12-12] MEDS: SODIUM CHLORIDE 0.45 % 1,000 ML 80 ML IV (22:29)
[2024-12-13] VITALS (8 sets, daily range): BP systolic 104–138; BP diastolic 66–80; PULSE 75–114; RESP 15–95; TEMP 36.3–37.6; O2SAT 92–97
[2024-12-13 05:20] LABS: Basophils # (Auto) 0.1 Thou/mm3 (0.0-0.2); Basophils % (Auto) 0 % (0-2.5); Eosinophils % (Auto) 0 % (0-10); Hematocrit 37.1 % (41.0-53.0); Hemoglobin 12.4 g/dL (13.5-16.0); Immature Granulocytes % (Auto) 2 % (0-0); Immature Granulocytes Auto 0.35 Thou/mm3 (0.00-0.00); Lymphocytes # (Auto) 1.5 Thou/mm3 (1.0-4.8); Lymphocytes % (Auto) 6 % (10-50); Mean Corpuscular HGB Conc 33.4 g/dl (31.0-37.0); Mean Corpuscular Volume 87 fL (80-100); Monocytes # (Auto) 1.6 Thou/mm3 (0.0-0.8); Monocytes % (Auto) 7 % (0-12); Neutrophils # (Auto) 20.5 Thou/mm3 (1.8-7.7); Neutrophils % (Auto) 85 % (37-80); Nucleated Red Blood Cell % 0 /100 WBC (0); Platelet Count 179 Thou/mm3 (140-440); RDW Standard Deviation 45.1 fL (35.1-43.9); Red Blood Count 4.28 Miln/mm3 (4.50-5.90)
[2024-12-13 05:42] LABS: Anion Gap 9 (7-16); BUN/Creatinine Ratio 16 Ratio (12-20); Blood Urea Nitrogen 25 mg/dL (9-23); Calcium 9.9 mg/dL (8.3-10.6); Carbon Dioxide 22.7 mMol/L (20.0-31.0); Chloride 107 mMol/L (98-107); Creatinine (Component) 1.6 mg/dL (0.6-1.3); Glucose 111 mg/dL (74-106); Osmolality,Calculated 282 (275-295); Potassium 4.1 mMol/L (3.4-5.1); Sodium 139 mMol/L (136-145); eGFR 46 See Note
[2024-12-13 05:58] LABS: Glucose Estimated Average 108 mg/dL (80-131); Hemoglobin A1C 5.4 % Hgb (4.8-6.0)
--- NOTE | 2024-12-13 08:00 | XR_ITS ---
Examination: Retroperitoneal ultrasound, complete Technique: Multiple high resolution grayscale images of the retroperitoneum obtained, including kidneys and bladder. Exam date and time:September 12, 2025 at 0214 hrs. Indications: Dysuria beginning 2 days ago Findings: Right kidney 7.5 cm renal cortex 1.9 cm moderate right hydronephrosis [place] 14 mm cyst Left kidney 8.5 cm in the cortex 1.4 cm Moderate bilateral renal parenchymal scar formation No bladder mass or bladder calculi Bladder prevoid volume 122 cc unable to void Prostate 3.9 x 3.9 x 4.9 cm no prostate nodules Impression: Moderate right hydronephrosis, consider CT scan abdomen pelvis without contrast follow-up to assess etiology of the right hydronephrosis
--- NOTE | 2024-12-13 08:40 | PC.SS ---
Patient Jeff Sharma is a 69 Year old female admitted for Sepsis. SS met with patient and patient's daughter, Maria Del Rosario Aguilar at bedside. Maria Del Rosario reports her sister, Cassie Aguilar and her self are surrogate decision makers. [phone] and [phone]. Patient's daughter reports patient lives at home with her. Patient utilizes a Wheelchair to assist with ambulation. Patient has a Hospital bed, Bedside commode and cane. Patient needs assistance completing all ADL's independently. Choice of pharmacy is [facility]. Patient's PCP is Kristi Nino. Patient is being followed by Laboratory Equipment Installer and Neurologist. At time of discharge patient will return back home, family will provide transportation. Next of Kin Maria Del Rosario Aguilar [phone] and Daughter, Cassie Aguilar [phone] Discharge plan: Home
[2024-12-13] MEDS: levETIRAcetam 250 MG TABLET 500 MG PO ×2 (08:47→21:13)
--- NOTE | 2024-12-13 10:12 | ESPR_ITS ---
Documentation for date of: 12/13/24 Subjective Subjective Interval history: Informant daughter Cassie Aguilar is a 59-year-old gentleman with a history of stroke few years ago with a right-sided weakness, expressive aphasia, CKD stage III (used to follow-up with me), hypertension, dyslipidemia, diabetes, history of seizures post to stroke in 2013, history of PEG and trach in the past presented to the emergency department with altered mental status Patient had also falls and hit his head. He was having some nausea vomiting prior to that. Daughter brought him to the emergency department. His current medications include Keppra, Calcitriol, Amlodipine, Lisinopril, Escitalopram, Ezetimibe, and Aspirin. He has been off diabetic medication- glipizide, with regular follow-ups showing no longer testing diabetic. He does not smoke or drink. In the Emergency Department, the patient was initially evaluated with vital signs: temperature 101?F, HR 120 bpm, RR 20, BP 99/59 mmHg. A sepsis alert was activated. Laboratory results revealed WBC 26.6, hemoglobin 15.5, platelets 240, Na 138, K 5.1, creatinine 2.3, lactic acid 2.6, phosphorus 1.8, and procalcitonin 0.98. Urinalysis showed WBC 206 and RBC 33. Imaging studies included a CT head with no acute hemorrhage, mass effect, or midline shift; a pelvic CT without acute hip or pelvic fracture; and a cervical CT with no acute cervical fracture. EKG showed sinus tachycardia. 12/12/2024 Nephrology consultation requested for acute renal failure. Patient currently seen in medical floor. Blood pressure 115/86, heart rate 110. Blood sugar 160. WBC 25.3, hemoglobin 13.4, platelets 197. Sodium 145, potassium 4.8, BUN 32, creatinine 1.9 12/13/2024 patient currently seen in medical floor. Daughter Cassie at bedside. Patient has expressive aphasia from the stroke. He is wheelchair- bound per daughter. Blood sugar 115, blood pressure 138/80, heart rate 88. WBC 24, hemoglobin 12.4, platelets 179. Sodium 139, potassium 4.1, bicarbonate 22.7, BUN 25, creatinine 1.6, glucose 111. CT abdomen and pelvis showed moderate right hydronephrosis multiple left renal calculi with no hydronephrosis. Renal ultrasound showed moderate right hydronephrosis. Review of Systems Review of Systems Narrative Review of Systems: Unable to get any information due to stroke and expressive aphasia. Daughter at bedside and stated patient was having significant weakness and was altered. He is more alert and awake now. Exam Vital Signs Temp Pulse Resp BP Pulse Ox O2 Del Method 37.2 C 99 18 127/75 95 Room Air 12/13/24 07:42 12/13/24 08:56 12/13/24 08:56 12/13/24 07:42 12/13/24 07:42 12/13/24 07:42 Narrative Exam GENERAL APPEARANCE: Patient currently seen in medical floor Dry mucosa NECK: Neck supple, no JVD or bruit CARDIOVASCULAR: Heart regular, no murmurs LUNGS/CHEST: Chest clear to auscultation. No rales, rhonchi, wheezing ABDOMEN: Soft, nontender, nondistended. No masses. Normal bowel sounds. EXTREMITIES: No edema, clubbing or cyanosis. SKIN: Skin exam normal without any rashes MUSCULOSKELETAL: In bed NEUROLOGICAL : Expressive aphasia with weakness. Right hemiplegia from the previous stroke. Alert and awake. Objective Labs 12/13/24 04:34 12/13/24 04:34 Labs: Laboratory Results - last 24 hr 12/13/24 04:34 WBC 24.0 H RBC 4.28 L Hgb 12.4 L Hct 37.1 L MCV 87 MCH 29.0 MCHC 33.4 RDW Std Deviation 45.1 H Plt Count 179 Neut % (Auto) 85 H Lymph % (Auto) 6 L [place] % (Auto) 7 Eos % (Auto) 0 Baso % (Auto) 0 Neut # (Auto) 20.5 H Lymph # (Auto) 1.5 [place] # (Auto) 1.6 H Eos # (Auto) 0.0 Baso # (Auto) 0.1 Immature Gran # (Auto) 0.35 H Absolute Nucleated RBC 0.00 Immature Gran % 2 H Nucleated RBC % 0 Sodium 139 Potassium 4.1 D Chloride 107 Carbon Dioxide 22.7 Anion Gap 9 BUN 25 H Creatinine 1.6 H Estim Creat Clear Calc 43.0 L eGFR 46 L BUN/Creatinine Ratio [address] Glu mg/dL 108 Hemoglobin A1c 5.4 Calculated Osmolality 282 Calcium 9.9 Assessment & Plan Assessment and plan (1) JOAQUIN (acute kidney injury): Status: Acute (2) Sepsis: Status: Acute (3) Acute UTI: Status: Acute (4) Hypertension: Status: Chronic (5) History of stroke: Status: Chronic Additional Assessment & Plan Additional Plan: (1) JOAQUIN (acute kidney injury): Status: Acute Assessment and plan: JOAQUIN secondary to prerenal azotemia. Patient has decreased p.o. intake for the last few days. Traumatic In-N-Out catheter and had some bleeding yesterday. Currently urine in the brief seems to be less bloody. Creatinine improving with IV fluids. Continue with fluid resuscitation. Renal ultrasound showed right hydronephrosis-probably reflux. Left kidney incidentally found stones. Patient asymptomatic. No need for any workup at this point. CT abdomen confirmed mild hydronephrosis. Creatinine improving. Will hold off on further workup. Strict I&O's ordered. (2) Sepsis: Status: Acute Assessment and plan: Secondary to UTI. Antibiotics given. Urine cultures positive for E. coli. Blood cultures so far negative. White count still elevated. (3) Acute UTI: Status: Acute (4) Hypertension: Status: Chronic Assessment and plan: Blood pressure in fact on the lower side. Hold off on lisinopril, amlodipine. (5) History of stroke: Status: Chronic Assessment and plan: History of stroke with seizures. On Keppra. Plan of care discussed with daughter at bedside. Quality - progress note Quality Measures Quality Measures: VTE prophylaxis Reason for Continued Stay Reason for Continued Stay: further monitoring
--- NOTE | 2024-12-13 11:40 | ESPR_ITS ---
<Statement entered by Mildred Rayo MD - 12/13/24 15:54> I discussed with and supervised my co-resident involved in the care of this patient. I agree with the assessment and plan as documented above. Patient seen at bedside. Per family, patient is back to baseline mentation. No fevers overnight. Labs show persistent leukocytosis at 24. Urine ulture did grow E Coli and patient is on ceftriaxone. Blood cultures pending. Renal ultrasound did show moderate right hydronephrosis. Patient does have prostatomegaly but unilateral hydronephrosis may be suspicious for stone. Per family, patient was complaining of right-sided flank pain but were unable to relay if the pain was radiating. Will get CT of the abdomen and pelvis to check for kidney stone that might be contributing to the patient's UTI. Patient urinating adequately. Mildred Rayo MD PGY-3 Documentation for date of: 12/13/24 Subjective Subjective Interval history: Patient seen and examined at bedside. No events overnight, no major complaints. Daughter at bedside said that he is doing good. Preliminary blood cultures negative. Urine cultures positive for E. coli UTI--continue ceftriaxone 1 g daily. WBCs show minor improvement, 24 today. Creatinine has down trended to 1.6. Kidney ultrasound showed mild right-sided hydronephrosis. Patient continues to have good urine output. CT pelvis showed no abnormality in the ureters. Will defer CT abdomen at this time. Aspirin reduced from 325 mg to 81 Mg. Anticipate discharge next 24 hours WBCs improved. Exam Vital Signs Temp Pulse Resp BP Pulse Ox O2 Del Method 98.9 F 99 18 127/75 95 Room Air 12/13/24 07:42 12/13/24 08:56 12/13/24 08:56 12/13/24 07:42 12/13/24 07:42 12/13/24 07:42 Narrative Exam General: E[place]dly male, well kept, No acute distress HEENT: NCAT, No JVD noted. Mucosa moist. Pupils are equal and reactive to light bilaterally Cardiovascular: Normal S1 and S2. Regular rate and rhythm. Respiratory: Lungs are clear to auscultation bilaterally. No wheezing or crackles heard. Abdomen: Soft, nontender, not distended, normal bowel sounds. Skin: Warm to touch, dry, no rashes noted Musculoskeletal: No gross injuries. Able extremities except RUE. No pitting edema Neuro: Per daughter, patient is at baseline. Right arm weakness, apashia, follows simple commands Objective Labs 12/14/24 05:15 12/14/24 05:15 Labs: Laboratory Results - last 24 hr 12/13/24 04:34 WBC 24.0 H RBC 4.28 L Hgb 12.4 L Hct 37.1 L MCV 87 MCH 29.0 MCHC 33.4 RDW Std Deviation 45.1 H Plt Count 179 Neut % (Auto) 85 H Lymph % (Auto) 6 L [place] % (Auto) 7 Eos % (Auto) 0 Baso % (Auto) 0 Neut # (Auto) 20.5 H Lymph # (Auto) 1.5 [place] # (Auto) 1.6 H Eos # (Auto) 0.0 Baso # (Auto) 0.1 Immature Gran # (Auto) 0.35 H Absolute Nucleated RBC 0.00 Immature Gran % 2 H Nucleated RBC % 0 Sodium 139 Potassium 4.1 D Chloride 107 Carbon Dioxide 22.7 Anion Gap 9 BUN 25 H Creatinine 1.6 H Estim Creat Clear Calc 43.0 L eGFR 46 L BUN/Creatinine Ratio [address]ucose [address] Glu mg/dL 108 Hemoglobin A1c 5.4 Calculated Osmolality 282 Calcium 9.9 Quality Measures Quality Measures none Advance care planning discussed with:: child Assessment & Plan Assessment Current Active Medications: Generic Name Dose Route Start Last Admin Trade Name Freq PRN Reason Stop Dose Admin Acetaminophen 650 mg 12/11/24 19:43 12/11/24 23:36 Acetaminophen 325 Mg Tablet PO 01/10/25 19:42 650 mg Q6H PRN Administration Fever >101.5 Aspirin 81 mg 12/13/24 11:30 Aspirin Ec 81 Mg Tabec PO 01/12/25 11:29 QDAY JENNA Dextrose 25 ml 12/11/24 19:50 Dextrose 50%-Water Inj 50 Ml Syringe IV 01/10/25 19:49 Q15MIN PRN BG 50-70 responsive npo pt Dextrose 50 ml 12/11/24 19:50 Dextrose 50%-Water Inj 50 Ml Syringe IV 01/10/25 19:49 Q15MIN PRN BG <50 OR BG <70 & pt unresponsive Escitalopram Oxalate 10 mg 12/12/24 21:00 12/12/24 20:24 Escitalopram Oxalate 10 Mg Tablet PO 01/11/25 20:59 10 mg HS JENNA Administration Glucagon 1 mg 12/11/24 19:50 Glucagon Inj 1 Mg Vial IM Q15MIN PRN BG <70, and no IV access Ceftriaxone Sodium 1,000 mg/ 50 mls @ 100 mls/hr 12/13/24 21:00 Sodium Chloride IV 12/19/24 20:59 HS [facility] Insulin Human Regular 0 unit 12/12/24 07:30 12/13/24 08:00 Insulin Hum Regular 1 Unit/0.01 Ml (Per Unit) SC 01/11/25 07:29 Not Given AC [facility] Protocol Levetiracetam 500 mg 12/12/24 09:30 12/13/24 08:47 Levetiracetam 250 Mg Tablet PO 01/11/25 09:29 500 mg BID JENNA Administration Plan Zachary Aguilar is 69 yr male with PMH of HTN, CKD, HLD, CVA with apashia, controlled DM, hx seizures who presented after a fall. Head imaging was negative for hemorrhage/fractures. Patient was admitted for sepsis 2/2 UTI. #Sepsis 2/2 #E.coli UTI Per family, patient was having episodes of incontinence. Normally this is not an issue. UA positive for UTI. -ceftriaxone 1g daily (12/12--) -daily CBC -d/c pending on white count trend #JOAQUIN on CKD IIIb Elevated creatinine (2.3) compared to baseline Ddx: sepsis, poor oral intake -nephrology consulted -avoid nephrotoxic agents -daily CMP -bladder scan #Ground level fall Per family at bedside, patient had sudden onset cramp/sciatic pain in the buttocks. Due to the sudden pain patient had lifted his leg and slipped. Not able to grab the railing in time and fell. No history of recurrent falls. CT head negative for hemorrhage, cervical spine imaging negative for fracture. -continue to monitor #Hx seizure disorder Patient has been seizure-free for many years now. Started on current seizure regimen by Dr. Engle. -Continue Keppra 500 mg twice daily #Hx CVA #Expressive aphasia #Hx HTN Family stated that patient had OR episode preceding the stroke in 2012. Patient does follow with deicer inspector electric Dr. Wong. Underwent previous angiogram and stress test which was negative for any atherosclerotic disease. -Takes 325 mg aspirin daily (unaware at this time if neurology VS cardiology has started patient on this dose since 2013) -start 81mg daily #Hx depression (?) -Continue escitalopram 10 mg daily #controlled type 2 diabetes mellitus Health maintenance: Dispo: abx for UTI, d/c pending WBC count DVT prophylaxis: SCDs CODE STATUS: Full code Diet: Regular The patient's management plan was discussed with my attending physician Dr. Zapien and senior Dr. Rayo. Amber Ch, PGY-1 Attending Provider Attestation/Addendum I reviewed labs, imaging, EKG, home medications and prior available records. Face to face evaluation was performed by me. I have personally examined the patient and discussed assessment and plan with the IM team. I reviewed the resident note and agree with the plan with exceptions as below. Sepsis Acute E. coli UTI Acute pyelonephritis Leukocytosis JOAQUIN on CKD Ground-level fall History of CVA Debility Continue IV ceftriaxone Received IV fluids. Creatinine improved. Ordered ultrasound of the kidney that showed right hydronephrosis WBC is still very high: Patient is still symptomatic. Ordered CT abdomen that showed nephrolithiasis and renal stones. Consulted urology Discussed with daughter: Patient has quad cane and hospital bed. She is able to take care of him at home
[2024-12-13] MEDS: ASPIRIN EC 81 MG TABEC PO (12:03)
--- NOTE | 2024-12-13 15:03 | PC.SS ---
SS follow up note; Patient is on IV ABX, will possibly discharge tomorrow.
--- NOTE | 2024-12-13 15:05 | XR_ITS ---
Examination: CT abdomen and pelvis without contrast. Coronal 3-D reconstructions. Sagittal 2-D reconstructions. Date and time of exam:December 13, [address] pelvis December 11, 2024 INDICATIONS: Renal sonogram December 13, 2024 moderate right hydronephrosis CTDI: vol (mGy): 14.2 DLP: (mGycm): 931 Technique: Axial images of the abdomen have been obtained, 3 mm slice thickness Intravenous contrast material has not been administered. Low dose protocols were performed. One or more of the following dose reduction techniques were used; automated exposure control, adjustment of the mA and/or KV according to patient size, use of iterative reconstruction technique. Findings: Mild bilateral pleural disease No focal liver or splenic lesion No gallstones No pancreatic or adrenal mass Multiple left renal calculi including midpole 10 mm lower pole 12 mm Bilateral significant renal parenchymal scar formation Moderate right hydronephrosis although no ureteral calculi No bowel obstruction Normal appendix Significant prostatomegaly, AP dimension 5.5 cm No bladder mass Moderate osteopenia IMPRESSION: Left renal calculi Bilateral significant renal parenchymal scar formation Moderate right hydronephrosis without ureteral calculi, consider urinary tract infection
[2024-12-13] MEDS: ESCITALOPRAM OXALATE 10 MG TABLET PO (21:13)
[2024-12-13] MEDS: cefTRIAXone 1,000 MG in SODIUM CHLORIDE 0.9% (P) 50 ML 100 MG IV (21:21)
[2024-12-14] VITALS: BP 131/79; PULSE 93; RESP 18; TEMP 36.3; O2SAT 95
[2024-12-14 04:00] VITALS: BP 129/81; PULSE 83; RESP 17; TEMP 36.6; O2SAT 97
[2024-12-14 05:29] LABS: Basophils # (Auto) 0.1 Thou/mm3 (0.0-0.2); Basophils % (Auto) 1 % (0-2.5); Eosinophils # (Auto) 0.1 Thou/mm3 (0.0-0.5); Eosinophils % (Auto) 1 % (0-10); Hematocrit 38.6 % (41.0-53.0); Hemoglobin 12.8 g/dL (13.5-16.0); Immature Granulocytes % (Auto) 1 % (0-0); Immature Granulocytes Auto 0.07 Thou/mm3 (0.00-0.00); Lymphocytes # (Auto) 1.2 Thou/mm3 (1.0-4.8); Lymphocytes % (Auto) 9 % (10-50); Mean Corpuscular HGB Conc 33.2 g/dl (31.0-37.0); Mean Corpuscular Volume 88 fL (80-100); Monocytes # (Auto) 1.1 Thou/mm3 (0.0-0.8); Monocytes % (Auto) 8 % (0-12); Neutrophils % (Auto) 82 % (37-80); Nucleated Red Blood Cell % 0 /100 WBC (0); Platelet Count 190 Thou/mm3 (140-440); RDW Standard Deviation 44.9 fL (35.1-43.9); Red Blood Count 4.41 Miln/mm3 (4.50-5.90); White Blood Count 14.6 Thou/mm3 (3.8-10.6)
[2024-12-14 05:48] LABS: Anion Gap 10 (7-16); BUN/Creatinine Ratio 18 Ratio (12-20); Blood Urea Nitrogen 24 mg/dL (9-23); Calcium 10.2 mg/dL (8.3-10.6); Carbon Dioxide 24.3 mMol/L (20.0-31.0); Chloride 107 mMol/L (98-107); Creatinine (Component) 1.3 mg/dL (0.6-1.3); Estimated Creatinine Clearance 52.9 mL/min (>60); Glucose 108 mg/dL (74-106); Osmolality,Calculated 286 (275-295); Potassium 4.2 mMol/L (3.4-5.1); Sodium 141 mMol/L (136-145); eGFR 59 See Note
--- NOTE | 2024-12-14 07:22 | PD.NEPHPROG ---
Documentation for date of: 12/14/24 Subjective Subjective Interval history: Informant daughter Cassie Aguilar is a 59-year-old gentleman with a history of stroke few years ago with a right-sided weakness, expressive aphasia, CKD stage III (used to follow-up with me), hypertension, dyslipidemia, diabetes, history of seizures post to stroke in 2013, history of PEG and trach in the past presented to the emergency department with altered mental status Patient had also falls and hit his head. He was having some nausea vomiting prior to that. Daughter brought him to the emergency department. His current medications include Keppra, Calcitriol, Amlodipine, Lisinopril, Escitalopram, Ezetimibe, and Aspirin. He has been off diabetic medication-glipizide, with regular follow-ups showing no longer testing diabetic. He does not smoke or drink. In the Emergency Department, the patient was initially evaluated with vital signs: temperature 101?F, HR 120 bpm, RR 20, BP 99/59 mmHg. A sepsis alert was activated. Laboratory results revealed WBC 26.6, hemoglobin 15.5, platelets 240, Na 138, K 5.1, creatinine 2.3, lactic acid 2.6, phosphorus 1.8, and procalcitonin 0.98. Urinalysis showed WBC 206 and RBC 33. Imaging studies included a CT head with no acute hemorrhage, mass effect, or midline shift; a pelvic CT without acute hip or pelvic fracture; and a cervical CT with no acute cervical fracture. EKG showed sinus tachycardia. 12/12/2024 Nephrology consultation requested for acute renal failure. Patient currently seen in medical floor. Blood pressure 115/86, heart rate 110. Blood sugar 160. WBC 25.3, hemoglobin 13.4, platelets 197. Sodium 145, potassium 4.8, BUN 32, creatinine 1.9 12/13/2024 patient currently seen in medical floor. Daughter Cassie at bedside. Patient has expressive aphasia from the stroke. He is wheelchair-bound per daughter. Blood sugar 115, blood pressure 138/80, heart rate 88. WBC 24, hemoglobin 12.4, platelets 179. Sodium 139, potassium 4.1, bicarbonate 22.7, BUN 25, creatinine 1.6, glucose 111. CT abdomen and pelvis showed moderate right hydronephrosis multiple left renal calculi with no hydronephrosis. Renal ultrasound showed moderate right hydronephrosis. 12/14/2024 patient currently seen in medical floor. Daughter Cassie at bedside. He has a trouble talking due to expressive aphasia from the stroke. At home he is wheelchair-bound. Daughter is very caring for him. Blood sugar 119. Blood pressure 153/96, heart rate 96. WBC 14.6, hemoglobin 12.8, platelets 190. Sodium 141, potassium 4.2, BUN 24, creatinine 1.3, glucose 108. Has a mild hydronephrosis on the right side-probably related to infection/reflux. Recommended to follow-up with urology for the left renal calculi. Review of Systems Review of Systems Narrative Review of Systems: Unable to get any information due to stroke and expressive aphasia. Daughter at bedside and stated patient was having significant weakness and was altered. He is more alert and awake now. Exam Vital Signs Temp Pulse Resp BP Pulse Ox O2 Del Method 36.6 C 83 17 129/81 97 Room Air 12/14/24 04:00 12/14/24 04:00 12/14/24 04:00 12/14/24 04:00 12/14/24 04:00 12/14/24 04:00 Narrative Exam GENERAL APPEARANCE: Patient currently seen in medical floor Dry mucosa NECK: Neck supple, no JVD or bruit CARDIOVASCULAR: Heart regular, no murmurs LUNGS/CHEST: Chest clear to auscultation. No rales, rhonchi, wheezing ABDOMEN: Soft, nontender, nondistended. No masses. Normal bowel sounds. EXTREMITIES: No edema, clubbing or cyanosis. SKIN: Skin exam normal without any rashes MUSCULOSKELETAL: In bed NEUROLOGICAL : Expressive aphasia with weakness. Right hemiplegia from the previous stroke. Alert and awake. Objective Labs 12/14/24 05:15 12/14/24 05:15 Labs: Laboratory Results - last 24 hr 12/14/24 05:15 WBC 14.6 H D RBC 4.41 L Hgb 12.8 L Hct 38.6 L MCV 88 MCH 29.0 MCHC 33.2 RDW Std Deviation 44.9 H Plt Count 190 Neut % (Auto) 82 H Lymph % (Auto) 9 L Nicholas % (Auto) 8 Eos % (Auto) 1 Baso % (Auto) 1 Neut # (Auto) 12.0 H Lymph # (Auto) 1.2 Nicholas # (Auto) 1.1 H Eos # (Auto) 0.1 Baso # (Auto) 0.1 Immature Gran # (Auto) 0.07 H Absolute Nucleated RBC 0.00 Immature Gran % 1 H Nucleated RBC % 0 Sodium 141 Potassium 4.2 Chloride 107 Carbon Dioxide 24.3 Anion Gap 10 BUN 24 H Creatinine 1.3 Estim Creat Clear Calc 52.9 L eGFR 59 L BUN/Creatinine Ratio 18 Glucose 108 H Calculated Osmolality 286 Calcium 10.2 Assessment & Plan Assessment and plan (1) JOAQUIN (acute kidney injury): Status: Acute (2) Sepsis: Status: Acute (3) Acute UTI: Status: Acute (4) Hypertension: Status: Chronic (5) History of stroke: Status: Chronic Additional Assessment & Plan Additional Plan: (1) JOAQUIN (acute kidney injury): Status: Acute Assessment and plan: JOAQUIN secondary to prerenal azotemia. Patient has decreased p.o. intake for the last few days. Traumatic In-N-Out catheter and had some bleeding yesterday. Currently urine in the brief seems to be less bloody. Creatinine improving with IV fluids. Continue with fluid resuscitation. Renal ultrasound showed right hydronephrosis-probably reflux. Left kidney incidentally found stones. Patient asymptomatic. No need for any workup at this point. CT abdomen confirmed mild hydronephrosis. Creatinine improving. Will hold off on further workup. Strict I&O's ordered. Follow-up with urology as an outpatient for the left renal calculi. (2) Sepsis: Status: Acute Assessment and plan: Secondary to UTI. Antibiotics given. Urine cultures positive for E. coli. Blood cultures so far negative. White count better. Sepsis resolved. (3) Acute UTI: Status: Acute (4) Hypertension: Status: Chronic Assessment and plan: Blood pressure in fact on the lower side. Hold off on lisinopril, amlodipine. (5) History of stroke: Status: Chronic Assessment and plan: History of stroke with seizures. On Keppra. Plan of care discussed with daughter at bedside. Renal hallman stable for discharge. Quality - progress note Quality Measures Quality Measures: VTE prophylaxis Reason for Continued Stay Reason for Continued Stay: further monitoring
[2024-12-14 08:00] VITALS: BP 129/89; PULSE 93; RESP 16; TEMP 36.9; O2SAT 94
[2024-12-14] MEDS: levETIRAcetam 250 MG TABLET 500 MG PO (08:30)
[2024-12-14] MEDS: ASPIRIN EC 81 MG TABEC PO (08:30)
[2024-12-14 09:18] VITALS: PULSE 92; RESP 14; RESP 94
[2024-12-14 12:00] VITALS: BP 153/96; PULSE 96; RESP 18; TEMP 36.8; O2SAT 93
--- NOTE | 2024-12-14 13:11 | PC.NURSE ---
Discharge orders have been in since 11:[address] Ch. I printed DC papers and patients daughter notified me doctor was going to prescribe antibiotics. I called Dr. Ch and notified her. Dr. Ch will add PO antibiotics to discharge papers and soon as she is done with meeting. Will continue to monitor patient.
--- NOTE | 2024-12-14 13:25 | PD.RESDS ---
Planned Discharge Date 12/14/24 DS: Providers Provider Date of admission: 12/11/24 19:43 Primary care physician: Kristi Nino Admitting Provider: Enoc Cobb MD Attending Provider on Admission: Enoc Cobb MD Consults: 12/12/24 12:12 Consult to Nephrology Routine Comment: Consulting Provider: Geni Rosenberg Attending Provider on DC: Jama Zapien MD Discharging Provider: Jama Zapien MD DS: Diagnosis Problem List Completed Was Problem List Reviewed/Reconciled?: Yes Hospital Course Hospital Course Hospital course: Reason for hospitalization: Ecoli UTI with pyelonephritis Zachary Aguilar is 59 yr male with PMH of HTN, CKD, HLD, CVA with apashia, controlled DM, hx seizures who presented to [facility] ED on 12/11/24 due to a ground level fall and incontinence episodes per family. Patient was admitted for treatment of sepsis 2/2 Ecoli UTI with b/L pyelonephritis. Since time of stroke in 2012, patient has expressive aphasia but is able to understand and follow commands. He has good family support who are able to communicate with him properly. Family was at bedside during hospitalization. Daughter stated that patient had sudden onset sciatic-like pain which caused loss of balance. Patient was not able to grab hand railing in time, ended up falling and hitting his shoulder and head. No history of recurrent falls. In ED, CT head negative for hemorrhage, cervical spine imaging negative for fracture. Patient's aviation operations specialist, Dr. Rosenberg was consulted due to his JOAQUIN on CKD along with imaging that showed bilateral hydronephrosis. CT abdomen pelvis was negative for stones in the right kidney but showed presence of multiple left renal calculi sizing 10 mm and 12 mm. Patient was started on IV ceftriaxone 1g daily. With aggressive fluid resuscitation, JOAQUIN resolved. He remained asymptomatic and had adequate urine output. Family stated they would establish care with a urologist outpatient. Patient is to complete cephalexin 500 mg twice a day for 4 more days. Patient is now in stable condition and ready for discharge. Recommendations were given as below. Discharge Recommendations: Continue taking cephalexin 500 mg twice a day for 4 more days for treatment of UTI. Stop taking aspirin 325 mg tablet and changed to 81 mg daily for stroke prevention. Continue previous home medications. Follow-up with PCP in 1-2 weeks. Patient should establish care with urology due to BPH and kidney stones. Please return to ED if symptoms return or worsen. Hospital Diagnoses: #Sepsis 2/2 #E.coli UTI #b/L hydronephrosis #Kidney stones #JOAQUIN on CKD IIIb #Ground level fall #Hx seizure disorder #Hx CVA #Expressive aphasia #Hx HTN #Hx depression #controlled type 2 diabetes mellitus The patient's management plan was discussed with my attending physician Dr. Zapien. Amber Ch MD, PGY-1 Time Spent with Patient Time attestation: Total time spent providing and/or coordinating discharge services: Time spent: Greater than 30 minutes Exam Vital Signs Temp Pulse Resp BP Pulse Ox O2 Del Method 98.3 F 96 18 153/96 H 93 L Room Air 12/14/24 12:00 12/14/24 12:00 12/14/24 12:00 12/14/24 12:00 12/14/24 12:12/14/24 12:00 Narrative Exam General: Elerdly male, well kept, No acute distress HEENT: NCAT, No JVD noted. Mucosa moist. Pupils are equal and reactive to light bilaterally Cardiovascular: Normal S1 and S2. Regular rate and rhythm. Respiratory: Lungs are clear to auscultation bilaterally. No wheezing or crackles heard. Abdomen: Soft, nontender, not distended, normal bowel sounds. Skin: Warm to touch, dry, no rashes noted Musculoskeletal: No gross injuries. Able to move extremities except RUE. No pitting edema Neuro: Per daughter, patient is at baseline. Right arm weakness, apashia, follows simple commands Discharge Plan Plan Patient Disposition: HOME (Self Care) Patient condition on transfer: Stable Prescriptions/Referrals Prescriptions/Med Rec: New aspirin [Ecotrin Low Strength] 81 mg Tablet,Delayed Release (Dr/Ec) 81 mg PO QDAY 30 Days Qty: 30 3RF cephalexin 500 mg capsule 500 mg PO BID 4 Days Qty: 8 0RF Continued amlodipine [Norvasc] 10 MG tablet 10 mg PO QDAY Qty: 0 omeprazole 20 MG capsule,delayed release(DR/EC) 20 mg PO QDAY Qty: 0 escitalopram oxalate [Lexapro] 10 MG tablet 10 mg PO QDAY Qty: 0 ezetimibe [Zetia] 10 MG tablet 10 mg PO QDAY Qty: 0 levetiracetam [Keppra] 500 MG tablet 500 mg PO BID Qty: 0 calcitriol 0.25 mcg capsule 0.25 mcg PO HS Patient Comments: TAKE 1 CAPSULE BY MOUTH EVERY DAY Dialyvite 800 0.8 mg tablet 1 tab PO QDAY lisinopril 20 mg tablet 20 mg PO .AM Patient Comments: TAKE 1 TABLET BY MOUTH EVERY DAY glipizide 5 mg tablet 5 mg PO QDAY Discontinued aspirin 325 MG tablet 325 mg PO QDAY Qty: 0 Referrals: Kristi Nino [Primary Care Provider] - Patient/Caregiver Discharge Instructions Other Discharge Activity Instructions:: Continue taking cephalexin 500 mg twice a day for 4 more days for treatment of UTI. Stop taking aspirin 325 mg tablet and changed to 81 mg daily for stroke prevention. Continue previous home medications. Follow-up with PCP in 1-2 weeks. Patient should establish care with urology due to BPH and kidney stones. Please return to ED if symptoms return or worsen. Education Materials: Kidney Stones Expectant Tx, Understanding Hydronephrosis Print Language: [place] Stand Alone Forms: [employer] Award Info., Patient Portal Info Letter Discharge Order Discharge Orders: Discharge (Routine); Ordered 12/14/24 Ordered By: Amber Ch Quality Discharge Quality Measures VTE prophylaxis Attestestation Attestation I reviewed labs, imaging, EKG, home medications and prior available records. Face to face evaluation was performed by me. I have personally examined the patient and discussed assessment and plan with the IM team. I reviewed the resident note and agree with the plan with exceptions as below. Sepsis Acute E. coli UTI Acute pyelonephritis Leukocytosis JOAQUIN on CKD Ground-level fall History of CVA Debility Changed antibiotics to p.o. Keflex Creatinine improved and at baseline. Outpatient nephrology follow-up. Ordered ultrasound of the kidney that showed right hydronephrosis WBC improved Ordered CT abdomen that showed nephrolithiasis and renal stones. outpatient urology follow-up Discussed with daughter: Patient has quad cane and hospital bed. She is able to take care of him at home Time spent is 40 minutes. More than 50% of the time was spent on patient education and coordination of care.
== END 2024-12-14 13:58 | disposition home or self-care (01) | DRG 872 ==
LOC: SERX 19:32 → SERHOLD 19:54 → S3SX 12-12 00:27
PROVIDERS: Nurse Practitioner Family; Registered Nurse General Practice; Student in an Organized Health Care Education/Training Program; Admitting Provider Internal Medicine; Emergency Provider Emergency Medicine; PCP Family Medicine; Visit Provider Internal Medicine
DX: A41.51 Sepsis due to Escherichia coli [E. coli] (principal); N17.9 Acute kidney failure, unspecified; I69.351 Hemiplegia and hemiparesis following cerebral infarction affecting right dominant side; N13.6 Pyonephrosis; I69.320 Aphasia following cerebral infarction; G40.909 Epilepsy, unspecified, not intractable, without status epilepticus; I12.9 Hypertensive chronic kidney disease with stage 1 through stage 4 chronic kidney disease, or unspecified chronic kidney disease; E11.22 Type 2 diabetes mellitus with diabetic chronic kidney disease; M54.30 Sciatica, unspecified side; R32 Unspecified urinary incontinence; N20.0 Calculus of kidney; F32.A Depression, unspecified; N18.32 Chronic kidney disease, stage 3b; R31.9 Hematuria, unspecified; I69.398 Other sequelae of cerebral infarction; E83.52 Hypercalcemia; K21.9 Gastro-esophageal reflux disease without esophagitis; E78.5 Hyperlipidemia, unspecified; N40.1 Benign prostatic hyperplasia with lower urinary tract symptoms; W18.30XA Fall on same level, unspecified, initial encounter; Z79.899 Other long term (current) drug therapy; Z79.82 Long term (current) use of aspirin; Z79.84 Long term (current) use of oral hypoglycemic drugs; Z99.3 Dependence on wheelchair
CPT/HCPCS: 36415; 70450; 71046; 72125; 72192; 73522; 74176; 76770; 80048; 80053; 80307; 81001; 83036; 83605; 83615; 83690; 83735; 83880; 84100; 84145; 84484; 85025; 85610; 85730; 87040; 87077; 87086; 87186; 87400; J0696; J7030; J7050; J7120; A9270

== ENCOUNTER 2025-01-01 13:36 | Emergency (ER) | payer MEDICARE, SELFPAY ==
[2025-01-01] VITALS (14 sets, daily range): BP systolic 77–102; BP diastolic 45–67; PULSE 67–141; RESP 14–26; TEMP 36.5–40.3; O2SAT 95–99; BMI 22.2
--- NOTE | 2025-01-01 13:58 | PD.EDADULT ---
ED General RME/HPI General Chief complaint: Abdominal Pain Stated complaint: ABDOMINAL PAIN WITH HX KIDNEY STONES AND UTI Time Seen by Provider: 01/01/25 14:05 Arrival date/time: 01/01/25 13:36 RME / HPI RME / HPI narrative: DR. MENJIVAR MAIN ED EVALUATION: 69 year old male with past medical history significant for stroke few years ago with a right-sided weakness, expressive aphasia, CKD stage III (used to follow-up with me), hypertension, dyslipidemia, diabetes, history of seizures post to stroke in 2013, history of PEG and trach in the past, and recent kidney stones presents to the Emergency Department [facility] with complaint abdominal pain. Per daughter, patient is probably passing a kidney stone. Other associated symptoms include hematuria, fever, chills, generalized weakness, and sweating. Patient is nonverbal and history obtained from daughter. Recently admitted for an UTI from 12/11/24 through 12/14/24. Reviewed urine culture from 12/11/24, E. coli resistant to Bactrim and cipro. His current medications include Keppra, Calcitriol, Amlodipine, Lisinopril, Escitalopram, Ezetimibe, and Aspirin. He has been off diabetic medication-glipizide, with regular follow-ups showing no longer testing diabetic. He does not smoke or drink. Social Hx: No tobacco, alcohol, or substance use. Related Data Home Medications ?Medication ?Instructions ?Recorded ?Confirmed amlodipine 10 mg tablet (Norvasc) 10 mg PO QDAY #0 tabs 07/06/17 12/11/24 escitalopram oxalate 10 mg tablet 10 mg PO QDAY #0 tabs 07/06/17 12/11/24 (Lexapro) ezetimibe 10 mg tablet (Zetia) 10 mg PO QDAY #0 tabs 07/06/17 12/11/24 omeprazole 20 mg capsule,delayed 20 mg PO QDAY ##0 07/06/17 12/11/24 release levetiracetam 500 mg tablet 500 mg PO BID #0 tabs 07/07/17 12/11/24 (Keppra) calcitriol 0.25 mcg capsule 0.25 mcg PO HS 12/11/24 12/12/24 glipizide 5 mg tablet 5 mg PO QDAY 12/11/24 12/11/24 lisinopril 20 mg tablet 20 mg PO .AM 12/11/24 12/12/24 vitamin B complex-vitamin C-folic 1 tab PO QDAY 12/11/24 12/11/24 acid 0.8 mg tablet (Dialyvite 800) Previous Rx's ?Medication ?Instructions ?Recorded aspirin 81 mg tablet,delayed 81 mg PO QDAY 30 days #30 tabs 12/14/24 release (Ecotrin Low Strength) Allergies Allergy/AdvReac Type Severity Reaction Status Date / Time meperidine Allergy Mild Itching Verified 10/28/18 21:47 clopidogrel AdvReac Severe TEMPORARY Verified 10/28/18 21:47 BLINDNESS morphine AdvReac Mild Nausea/Vomi Verified 10/28/18 21:47 tiing Review of Systems Review of Systems ROS Unobtainable: unobtainable due to medical condition Past Medical History Social History SMOKING STATUS: Never smoker SUBSTANCE USE: does not use ALCOHOL: Never ED Exam Narrative Physical exam: GENERAL APPEARANCE: awake at baseline, well-developed, well-nourished, diaphoretic VITALS: All vitals were reviewed and the pulse ox is 95% on room air, which is normal according to my interpretation. HEENT: Normocephalic, atraumatic; pupils equal, round, reactive to light; EOMI; mucous membranes pink, moist; oropharynx clear NECK: Supple LUNGS: CTABL; no wheezes, no rales, no rhonchi HEART: Tachycardic, regular rhythm; normal S1, S2; no murmurs ABDOMEN: non distended; normal BS; soft, no tenderness, no guarding, no rebound; no masses, no organomegaly, no hernia BACK: no CVA tenderness EXTREMITIES: atraumatic; no edema NEUROLOGIC: awake; at baseline PSYCHIATRIC: at baseline SKIN: warm, dry, normal color; no rashes Course Course Course Narrative: 1439: Sepsis alert initiated. Orders made at this time are congruent with ED Adult Sepsis Order List. Re-evaluation is to be completed. 1449: Fluids started. 1519: Sepsis reassessment performed consisting of lab review, vitals, physical exam including auscultation of heart, lungs, and visual evaluation of capillary refills, mucosal membranes and extremities. 1800: Patient was signed out to Dr. Alejandro. Past medical, surgical, social and family history reviewed. Vitals and home medications reviewed. Results and treatment plan discussed. They will assume the care of the patient at this time and will follow the patient, pending transfer for urology services. Quality Measures Current suspected stage: sepsis Possible source: unknown (possibly genitourinary) Blood cultures ordered: yes Antibiotic ordered: Yes Pertinent labs: 01/01/25 14:53 Lactic Acid 1.8 mMol/L (0.4-2.0) Procalcitonin 11.61 H ng/ml (0.0-0.49) sepsis Orders Category Date Time Status Photo Specialist NOW Care 01/01/25 14:07 Active EKG (ED ONLY) *Do not use* NOW Care 01/01/25 14:[address] abdomen pelvis wo con Stat Exams 01/01/25 14:09 Completed EKG (ED Only) Stat Exams 01/01/25 14:07 Draft XR chest 1V portable Stat Exams 01/01/25 14:07 Completed B-Type Natriuretic Peptide Stat Lab 01/01/25 14:53 Completed Blood Culture (Lab) Stat Lab 01/01/25 14:07 Ordered CBC Stat Lab 01/01/25 14:53 Completed Comprehensive Metabolic Panel Stat Lab 01/01/25 14:53 Completed Lactate (Lactic Acid) Stat Lab 01/01/25 14:53 Completed Lipase Stat Lab 01/01/25 14:53 Completed Magnesium Stat Lab 01/01/25 14:53 Completed Partial Thromboplastin Time Stat Lab 01/01/25 14:53 Completed Procalcitonin Stat Lab 01/01/25 14:53 Completed Prothrombin Time with INR Stat Lab 01/01/25 14:53 Completed Troponin I Stat Lab 01/01/25 14:53 Completed Urinalysis Stat Lab 01/01/25 18:14 Received Urine Culture Stat Lab 01/01/25 18:14 Received Acetaminophen Tab [Tylenol Tab] Med 01/01/25 14:59 Discontinued 650 mg PO X1 ONE Sodium Chloride 0.9% 1000 ml [Ns] 1,000 ml Med 01/01/25 14:06 Discontinued IV 999 mls/hr Sodium Chloride 0.9% 1000 ml [Ns] 1,000 ml Med 01/01/25 16:45 Discontinued IV 999 mls/hr cefTRIAXone [Rocephin] 1,000 mg Med 01/01/25 14:08 Discontinued SODIUM CHLORIDE 0.9% (Popper) [Ns 0.9% (P)] 50 ml IV X1 Vital Signs Vital signs: Vital Signs Temperature 98.7 F 01/01/25 13:59 Pulse Rate 104 H 01/01/25 13:59 Respiratory Rate 18 01/01/25 13:59 Blood Pressure 93/62 01/01/25 13:59 Pulse Oximetry (%) 95 01/01/25 13:59 Oxygen Delivery Method Room Air 01/01/25 13:59 Procedures -ED EKG Interpretation #1: Date of EK01/01/25 Time of EK:50 Rate: 123 Interpretation: Interpreted by me Additional EKG comment: sinus tachycardia, rate 123, right bundle branch block, no acute ischemic changes MDM Patient data External records reviewed:: [facility] previous records (Reviewed urine culture from 12/11/24, E. coli resistant to Bactrim and cipro. Reviewed last note by Dr. Rosenberg, dated 12/14/24. ) and EMS form Clinical information provided by:: EMS and family (daughter) Social determinants that could affect healthcare access:: none Patient has the following chronic illnesses:: PMHx: stroke few years ago with a right-sided weakness, expressive aphasia, CKD stage III (used to follow-up with me), hypertension, dyslipidemia, diabetes, history of seizures post to stroke in 2013, history of PEG and trach in the past. His current medications include Keppra, Calcitriol, Amlodipine, Lisinopril, Escitalopram, Ezetimibe, and Aspirin. He has been off diabetic medication-glipizide, with regular follow-ups showing no longer testing diabetic. He does not smoke or drink. Social Hx: No tobacco, alcohol, or substance use. Recently admitted for an UTI from 12/11/24 through 12/14/24. Reviewed urine culture from 12/11/24, E. coli resistant to Bactrim and cipro. How is presenting disease/condition affected by chronic disease/condition?: exacerbated by Evaluation data The following diagnostics were reviewed and interpreted by me:: lab results, radiology exam(s) and EKG tracing(s) (EKG#1: EKG at 1450 hours. Interpreted by me: sinus tachycardia, rate 123, right bundle branch block, no acute ischemic changes) Lab and/or radiology exams considered but not ordered:: none Interpretation Summary: Procedure(s): CT abdomen pelvis wo [facility] Accession Number(s): [id number] cc: Enoc Rene MD; She Menjivar MD; Geni Rosenberg MD~ EXAMINATION: CT abdomen pelvis wo [facility] ORDERING PROVIDER: She Menjivar MD HISTORY: hematuria TECHNIQUE: Without intravenous or oral contrast, CT was used in the volumetric, helical imaging acquisition of the abdomen and pelvis with 2-D and 3-D reformats generated on a separate workstation and submitted for interpretation. Institutional dose reducing protocols were utilized. Evaluation of hollow viscus and solid viscera is limited secondary to lack of intravenous and oral contrast. Imaging is motion degraded. RADIATION DOSE: DLP 950 mGy-cm COMPARISON: 1325, CT abdomen pelvis. FINDINGS: LIVER: Diffuse decreased density. BILIARY: Unremarkable. PANCREAS: Mild fatty atrophy. SPLEEN: Unremarkable. ADRENAL GLANDS: Thickening and nodularity without discrete mass. KIDNEYS: Bilateral right greater than left cortical atrophy and scarring. Right-sided rounded renal hypodensities, incompletely visualized without contrast, measuring up to 1.2 cm and inferior pole. Unchanged moderate right pelvic caliectasis without nephrolithiasis. Moderate left perinephric fat stranding. Again seen are left-sided nephroliths measuring up tor 1.0 cm. A 3 mm nephrolith has into the dependent inferior calyx. An additional previously seen 1.1 cm nephrolith has now advanced into the proximal left ureter. There is moderate to severe left pelvic caliectasis. URETERS: Moderate all length right-sided hydroureter, similar to prior. Moderate proximal left hydroureter. BLADDER: Diffuse wall thickening. Only mild distention. Mild surrounding fat stranding. CT provides limited evaluation of the urinary bladder. HOLLOW VISCUS:Scattered colonic diverticula, primarily ascending colon, without surrounding inflammatory changes. Appendix is nondilated. VASCULATURE: Heavy coronary artery calcifications. Calcifications of the aortic arch. Moderate aortoiliac calcifications. Mild to moderate proximal femoral artery calcifications. PELVIS: Enlarged prostate with coarse calcifications. LYMPH NODES: Limited evaluation without contrast. Grossly unremarkable. LUNG BASES: Significant centrilobular emphysematous changes. Right greater than left primarily linear airspace opacities. BONES: Similar mild bony degenerative changes. 6 lumbar type vertebral bodies. ABDOMINAL WALL: Greater than right fat filled inguinal canals. IMPRESSION: 1. Interval advancement of a 1.1 cm left-sided nephrolith now obstructed in the proximal left ureter with moderate to severe upstream dilation and inflammatory changes. Additional inflammatory changes about the bladder. Recommend clinical correlation for superimposed cystitis and pyelonephritis. 2. Bibasilar right greater than left primarily linear airspace opacities on background emphysematous changes. Favor atelectasis, though developing pneumonia could also have this appearance. 3. Findings suggestive of chronic bladder outlet obstruction, likely from enlarged prostate. The similar right-sided hydroureter and hydronephrosis may be due to this or due to some other underlying lesion. Consider urology referral for further investigation. 4. Hepatic steatosis. 5. Colonic diverticulosis without CT findings for diverticulitis. Dictated By: Enoc Rene MD Procedure(s): XR chest 1V portable Accession Number(s): [id number] cc: Enoc Rene MD; She Menjivar MD; Geni Rosenberg MD~ EXAMINATION: XR chest 1V portable ORDERING PROVIDER: She Menjivar MD HISTORY: chest pain TECHNIQUE: Single portable AP radiograph of the chest. COMPARISON: 12/11/2024, chest radiographs. FINDINGS: Lines and Tubes: Overlying monitoring leads. Lungs: Bibasilar opacities. Hypoinflated. Pleura: No pneumothorax or pleural effusion. Cardiomediastinal Silhouette: Uncoiled aorta. Soft Tissues/Bones: Similar mild midthoracic dextroconvex curvature. IMPRESSION: Hypoinflated lungs with bibasilar opacities which may represent atelectasis and/or pneumonia. Dictated By: Enoc Rene MD Medications Medications considered but not ordered:: none Medication administrations:: Medication Administration History Discontinued Medications Acetaminophen (Acetaminophen 325 Mg Tablet) 650 mg PO X1 ONE Stop: 01/01/25 15:00 Last Admin: 01/01/25 15:07 Dose: 650 mg Documented By: GM Sodium Chloride (Ns) 1,000 mls @ 999 mls/hr IV .Q1H1M ONE Stop: 01/01/25 15:06 Last Infusion: 01/01/25 16:00 Dose: Infused Documented By: Admin: 01/01/25 14:49 Dose: 999 mls/hr Documented By: Ceftriaxone Sodium 1,000 mg/ (Sodium Chloride) 50 mls @ 100 mls/hr IV X1 ONE Stop: 01/01/25 14:37 Last Infusion: 01/01/25 15:23 Dose: Infused Documented By: Admin: 01/01/25 14:52 Dose: 100 mls/hr Documented By: Sodium Chloride (Ns) 1,000 mls @ 999 mls/hr IV .Q1H1M ONE Stop: 01/01/25 17:45 Last Infusion: 01/01/25 17:55 Dose: Infused Documented By: Admin: 01/01/25 16:47 Dose: 999 mls/hr Documented By: see above Consultations Consultation(s) initiated? (list below): Yes Consultation #1 (Physician, Specialty, Details): Discussed test HPI, PMHx, lab, radiology results and/or management with hospitalist. Recommends transfer for urology services and does not accept patient for admission. Time: 17:30 Diagnosis Differential Diagnosis ED Complaint MDM: kidney stones, pyelonephritis, sepsis, UTI Most likely diagnosis given after review of the tests above:: Hydronephrosis with renal and ureteral calculus obstruction Pyelonephritis UTI JOAQUIN Dehydration Sepsis Admission Indicated Admission indicated?: not indicated Explain why admission is indicated or not indicated:: Patient needs higher level of care and will be transferred. Admission Request Was there a request for admission?: Yes Admission Attestation Admission request attestation: Discussed case with [] from Hospitalist service regarding admission. Discussed patients ED course, exam findings, labs, and radiology results. The Hospitalist [agrees,declines] to accept the patient for admission. Disposition Plan Disposition Plan: Transfer (Patient signed out to night auditor provider pending transfer.) Medical Decision Making MDM Narrative MDM Narrative: Mary Donald, am scribing for and in the presence of Dr. Menjivar. Differential Diagnosis Differential Diagnosis: kidney stones, pyelonephritis, sepsis, UTI Lab Data 01/01/25 14:53 01/01/25 14:53 Labs: Lab Results 01/01/25 Range/Units 14:53 WBC 15.8 H (3.8-10.6) Thou/mm3 RBC 4.32 L (4.50-5.90) Miln/mm3 Hgb 12.1 L (13.5-16.0) g/dL Hct 36.4 L (41.0-53.0) % MCV 84 (80-100) fL MCH 28.0 (25.0-35.0) pg MCHC 33.2 (31.0-37.0) g/dl RDW Std Deviation 42.5 (35.1-43.9) fL Plt Count 347 D (140-440) Thou/mm3 Neut % (Auto) 94 H (37-80) % Lymph % (Auto) 3 L (10-50) % [place] % (Auto) 2 (0-12) % Eos % (Auto) 0 (0-10) % Baso % (Auto) 0 (0-2.5) % Neut # (Auto) 14.8 H (1.8-7.7) Thou/mm3 Lymph # (Auto) 0.4 L (1.0-4.8) Thou/mm3 [place] # (Auto) 0.4 (0.0-0.8) Thou/mm3 Eos # (Auto) 0.0 (0.0-0.5) Thou/mm3 Baso # (Auto) 0.0 (0.0-0.2) Thou/mm3 Immature Gran # (Auto) 0.14 H (0.00-0.00) Thou/mm3 Absolute Nucleated RBC 0.00 (0.00-0.00) Thou/mm3 Immature Gran % 1 H (0-0) % Nucleated RBC % 0 (0) /100 WBC PT 14.0 H (9.0-12.2) Seconds INR 1.3 (0.9-1.3) APTT 26.5 (22.0-36.0) Seconds Sodium 134 L (136-145) mMol/L Potassium 5.0 (3.4-5.1) mMol/L Chloride 103 (98-107) mMol/L Carbon Dioxide 21.3 (20.0-31.0) mMol/L Anion Gap 10 (7-16) BUN 61 H (9-23) mg/dL Creatinine 3.5 H (0.6-1.3) mg/dL Estim Creat Clear Calc 19.5 L (>60) mL/min eGFR 18 L (60 - ) See Note BUN/Creatinine Ratio 17 (12-20) Ratio Glucose 111 H (74-106) mg/dL Calculated Osmolality 286 (275-295) Lactic Acid 1.8 (0.4-2.0) mMol/L Calcium 10.1 (8.3-10.6) mg/dL Corrected Calcium 10.3 H (8.5-10.1) mg/dL Magnesium 2.1 (1.6-2.6) mg/dL Total Bilirubin 0.5 (0.3-1.2) mg/dL AST 53 H (0-34) U/L ALT 51 H (10-49) U/L Alkaline Phosphatase 177 H (46-116) U/L Troponin I < 0.020 (0.0-0.045) ng/mL B-Natriuretic Peptide < 20 (0-100) pg/mL Total Protein 6.4 (5.7-8.2) gm/dL Albumin 3.7 (3.4-4.8) gm/dL Globulin 2.7 (2.3-3.5) gm/dL Albumin/Globulin Ratio 1.4 (1.2-2.2) Lipase 58 H (12-53) U/L Procalcitonin 11.61 H (0.0-0.49) ng/ml Critical Care Time Critical Care Time Critical Care Time: Yes Total Critical Care Time (min.): 30 Attestation: The high probability of sudden, clinically significant deterioration in the patient?s condition required the highest level of my preparedness to intervene urgently. The services I provided to this patient were to treat and/or prevent clinically significant deterioration. Services included the following: chart data review, reviewing nursing notes and/or old charts, documentation time, j2ee consultant collaboration regarding findings and treatment options, medication orders and management, direct patient care, vital sign assessments and ordering, interpreting and reviewing diagnostic studies and lab tests. Aggregate critical care time includes only time during which I was engaged in work directly related to the patient?s care, as described above, whether at bedside or elsewhere in the Emergency Department. It did not include time spent performing other reported procedures or the services of residents, students, nurses or physician assistants. Discharge Plan Prescriptions/Referrals Prescriptions/Med Rec: No Action amlodipine [Norvasc] 10 MG tablet 10 mg PO QDAY Qty: 0 omeprazole 20 MG capsule,delayed release(DR/EC) 20 mg PO QDAY Qty: 0 escitalopram oxalate [Lexapro] 10 MG tablet 10 mg PO QDAY Qty: 0 ezetimibe [Zetia] 10 MG tablet 10 mg PO QDAY Qty: 0 levetiracetam [Keppra] 500 MG tablet 500 mg PO BID Qty: 0 calcitriol 0.25 mcg capsule 0.25 mcg PO HS Patient Comments: TAKE 1 CAPSULE BY MOUTH EVERY DAY Dialyvite 800 0.8 mg tablet 1 tab PO QDAY lisinopril 20 mg tablet 20 mg PO .AM Patient Comments: TAKE 1 TABLET BY MOUTH EVERY DAY glipizide 5 mg tablet 5 mg PO QDAY aspirin [Ecotrin Low Strength] 81 mg Tablet,Delayed Release (Dr/Ec) 81 mg PO QDAY 30 Days Qty: 30 3RF Referrals: Geni Rosenberg MD [Physician] - In 1 week Problem List Clinical Impression: Hydronephrosis with renal and ureteral calculus obstruction, JOAQUIN (acute kidney injury), UTI (urinary tract infection), Sepsis, Pyelonephritis, Dehydration Patient/Caregiver Discharge Instructions Print Language: Mongolian
--- NOTE | 2025-01-01 14:07 | XR_ITS ---
EXAMINATION: XR chest 1V portable ORDERING PROVIDER: She Menjivar MD HISTORY: chest pain TECHNIQUE: Single portable AP radiograph of the chest. COMPARISON: 12/11/2024, chest radiographs. FINDINGS: Lines and Tubes: Overlying monitoring leads. Lungs: Bibasilar opacities. Hypoinflated. Pleura: No pneumothorax or pleural effusion. Cardiomediastinal Silhouette: Uncoiled aorta. Soft Tissues/Bones: Similar mild midthoracic dextroconvex curvature. IMPRESSION: Hypoinflated lungs with bibasilar opacities which may represent atelectasis and/or pneumonia.
--- NOTE | 2025-01-01 14:07 | EKG_ITS ---
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
--- NOTE | 2025-01-01 14:09 | XR_ITS ---
EXAMINATION: CT abdomen pelvis wo con ORDERING PROVIDER: She Menjivar MD HISTORY: hematuria TECHNIQUE: Without intravenous or oral contrast, CT was used in the volumetric, helical imaging acquisition of the abdomen and pelvis with 2-D and 3-D reformats generated on a separate workstation and submitted for interpretation. Institutional dose reducing protocols were utilized. Evaluation of hollow viscus and solid viscera is limited secondary to lack of intravenous and oral contrast. Imaging is motion degraded. RADIATION DOSE: DLP 950 mGy-cm COMPARISON: 1325, CT abdomen pelvis. FINDINGS: LIVER: Diffuse decreased density. BILIARY: Unremarkable. PANCREAS: Mild fatty atrophy. SPLEEN: Unremarkable. ADRENAL GLANDS: Thickening and nodularity without discrete mass. KIDNEYS: Bilateral right greater than left cortical atrophy and scarring. Right-sided rounded renal hypodensities, incompletely visualized without contrast, measuring up to 1.2 cm and inferior pole. Unchanged moderate right pelvic caliectasis without nephrolithiasis. Moderate left perinephric fat stranding. Again seen are left-sided nephroliths measuring up tor 1.0 cm. A 3 mm nephrolith has into the dependent inferior calyx. An additional previously seen 1.1 cm nephrolith has now advanced into the proximal left ureter. There is moderate to severe left pelvic caliectasis. URETERS: Moderate all length right-sided hydroureter, similar to prior. Moderate proximal left hydroureter. BLADDER: Diffuse wall thickening. Only mild distention. Mild surrounding fat stranding. CT provides limited evaluation of the urinary bladder. HOLLOW VISCUS:Scattered colonic diverticula, primarily ascending colon, without surrounding inflammatory changes. Appendix is nondilated. VASCULATURE: Heavy coronary artery calcifications. Calcifications of the aortic arch. Moderate aortoiliac calcifications. Mild to moderate proximal femoral artery calcifications. PELVIS: Enlarged prostate with coarse calcifications. LYMPH NODES: Limited evaluation without contrast. Grossly unremarkable. LUNG BASES: Significant centrilobular emphysematous changes. Right greater than left primarily linear airspace opacities. BONES: Similar mild bony degenerative changes. 6 lumbar type vertebral bodies. ABDOMINAL WALL: Greater than right fat filled inguinal canals. IMPRESSION: 1. Interval advancement of a 1.1 cm left-sided nephrolith now obstructed in the proximal left ureter with moderate to severe upstream dilation and inflammatory changes. Additional inflammatory changes about the bladder. Recommend clinical correlation for superimposed cystitis and pyelonephritis. 2. Bibasilar right greater than left primarily linear airspace opacities on background emphysematous changes. Favor atelectasis, though developing pneumonia could also have this appearance. 3. Findings suggestive of chronic bladder outlet obstruction, likely from enlarged prostate. The similar right-sided hydroureter and hydronephrosis may be due to this or due to some other underlying lesion. Consider urology referral for further investigation. 4. Hepatic steatosis. 5. Colonic diverticulosis without CT findings for diverticulitis.
[2025-01-01] MEDS: SODIUM CHLORIDE 0.9% 1000 ML 1,000 ML 999 ML IV ×3 (14:49→20:37)
[2025-01-01] MEDS: cefTRIAXone 1,000 MG in SODIUM CHLORIDE 0.9% (Popper) 50 ML 100 MG IV (14:52)
--- NOTE | 2025-01-01 15:00 | PC.NURSE ---
@1500- DR. CANALES MADE AWARE THAT PT'S DAUGHTERS ARE WANTING TO HAVE POLST FORM FILLED AND WISHES TO CHANGE THEIR FATHER'S CODE STATUS TO DNR WITH COMFORT MEASURES ONLY. PER DR. CANALES, WILL PRESENT PT;S CASE TO [facility] AND TRY TO ADMIT PT. @1700- DT. MITTAL AT PT'S BEDSIDE; RN SPOKE TO DR. MITTAL AND MADE AWARE PT'S DAUGHTERS AT BEDSIDE WISHES TO CHANGE THEIR FATHER'S CODE STATUS TO DNR WITH COMFORT MEASURES ONLY. PER DR. MITTAL, WE ARE NOT ADMITTING PT AT THIS TIME; PT TO BE TRANSFERRED FOR HIGHER LEVEL OF CARE. @1824- DR. KINJAL MONK MADE AWARE ABOUT PT'S DAUGHTERS AT BEDSIDE AND THEIR WISHES TO CHANGE THEIR FATHER'S CODE STATUS TO DNR WITH COMFORT MEASURES ONLY. PER DR. KINJAL Peterson, 'WILL GO SPEAK TO THEM SOON.
[2025-01-01 15:06] LABS: Lactate (Lactic Acid) 1.8 mMol/L (0.4-2.0)
[2025-01-01] MEDS: ACETAMINOPHEN 325 MG TABLET 650 MG PO (15:07)
--- NOTE | 2025-01-01 15:08 | PC.NURSE ---
ICE PACKS APPLIED UNDERNEATH'S PT AXILLARY & KNEES BILATERALLY.
[2025-01-01 15:13] LABS: Basophils % (Auto) 0 % (0-2.5); Eosinophils % (Auto) 0 % (0-10); Hematocrit 36.4 % (41.0-53.0); Hemoglobin 12.1 g/dL (13.5-16.0); Immature Granulocytes % (Auto) 1 % (0-0); Immature Granulocytes Auto 0.14 Thou/mm3 (0.00-0.00); Lymphocytes # (Auto) 0.4 Thou/mm3 (1.0-4.8); Lymphocytes % (Auto) 3 % (10-50); Mean Corpuscular HGB Conc 33.2 g/dl (31.0-37.0); Mean Corpuscular Volume 84 fL (80-100); Monocytes # (Auto) 0.4 Thou/mm3 (0.0-0.8); Monocytes % (Auto) 2 % (0-12); Neutrophils # (Auto) 14.8 Thou/mm3 (1.8-7.7); Neutrophils % (Auto) 94 % (37-80); Nucleated Red Blood Cell % 0 /100 WBC (0); Platelet Count 347 Thou/mm3 (140-440); RDW Standard Deviation 42.5 fL (35.1-43.9); Red Blood Count 4.32 Miln/mm3 (4.50-5.90); White Blood Count 15.8 Thou/mm3 (3.8-10.6)
[2025-01-01 15:23] LABS: B-Type Natriuretic Peptide < 20 pg/mL (0-100)
[2025-01-01 15:24] LABS: INR 1.3 (0.9-1.3); Partial Thromboplastin Time 26.5 Seconds (22.0-36.0)
[2025-01-01 15:32] LABS: Alanine Aminotransferase 51 U/L (10-49); Albumin, Serum 3.7 gm/dL (3.4-4.8); Albumin/Globulin Ratio 1.4 (1.2-2.2); Alkaline Phosphatase 177 U/L (46-116); Anion Gap 10 (7-16); Aspartate Amino Transferase 53 U/L (0-34); BUN/Creatinine Ratio 17 Ratio (12-20); Bilirubin,Total 0.5 mg/dL (0.3-1.2); Blood Urea Nitrogen 61 mg/dL (9-23); Calcium 10.1 mg/dL (8.3-10.6); Calcium (Corrected) 10.3 mg/dL (8.5-10.1); Carbon Dioxide 21.3 mMol/L (20.0-31.0); Chloride 103 mMol/L (98-107); Creatinine (Component) 3.5 mg/dL (0.6-1.3); Estimated Creatinine Clearance 19.5 mL/min (>60); Globulin 2.7 gm/dL (2.3-3.5); Glucose 111 mg/dL (74-106); Lipase 58 U/L (12-53); Magnesium 2.1 mg/dL (1.6-2.6); Osmolality,Calculated 286 (275-295); Procalcitonin 11.61 ng/ml (0.0-0.49); Sodium 134 mMol/L (136-145); Total Protein 6.4 gm/dL (5.7-8.2); Troponin I < 0.020 ng/mL (0.0-0.045); eGFR 18 See Note
--- NOTE | 2025-01-01 15:40 | PC.NURSE ---
ICE PACKS REMOVED AT THIS TIME.
--- NOTE | 2025-01-01 17:40 | PC.CC ---
Addendum entered by Yves Patino RN 01/01/25 19:03: 1851 spoke to Melanie at [facility] and initiated the transfer. She wants to speak with Dr. Alejandro. Conference call connected. Original Note: 1831 clinicals faxed to [facility]. [address] Menjivar that pt needs to be transferred for obstructing left uretheral stone, UTI, sepsis needs urology services.
[2025-01-01 18:23] LABS: Collection Type, Urine Clean Catch
--- NOTE | 2025-01-01 18:24 | EDNOTE_ITS ---
Emergency Room Addendum <Divine Alejandro MD - Last Filed: 01/01/25 23:35> Addendum Narrative: 1800: Care assumed from Dr. Menjivar, the previous shift emergency physician. Past medical, surgical, social and family history reviewed. Vitals and home medications reviewed. Results and treatment plan discussed. I will assume the care of the patient at this time and will follow the patient, pending Urology transfer. Dr. Pete reports that the family is at the bedside and they are requesting transfer. Patient has been urinating in the emergency department per Dr. MENJIVAR/family. I, Dr. Hari Higgins, will follow this patient with the resident. 1818:Patient is awake and responsive to family. Not diaphoretic. Blood pressures have been between 92-95 systolic and initially the temp was 104. Blood pressure is 92/64 with a pulse of 83 and now temperature is 97.9. Chest x-ray is reviewed and possibly bilateral opacities. Since the patient was recently hospitalized in November for sepsis secondary to UTI will cover with Zosyn in case he has pneumonia on top of his infected kidney stone. 1829: POLST form signed with daughter who is legal advertising account representative and POA, code status DNR/DNI. 1899: Discussed with transfer center from [facility]. Information given and they will call me back. 1911: blood pressure improved, 102/56, HR 77. 1949: Consulted with Dr. Zhang Briceno, urologist at [facility], who stated that patient needs emergent nephrostomy by IR but it is unavailable at this time and urology is not needed. The patient requires a nephrostomy tube to relieve obstruction. Spoke with Dr. Carpio, who confirmed that two IR physicians will be available in the morning. Will contact the medicine team for admission and nephrostomy in the morning. 2009: Patient refused for admission to [facility] due to lack of urology services. 2044: Started on Levophed sepsis protocol drip, secondary to blood pressure approximately 84 systolic. 2099: Blood pressure on low-dose Levophed is approximately 95 systolic. Discussed with the family and at this time they request and accept transfer to a facility tonight that can get the nephrostomy tube tonight versus Urology consult. 2129: Discussed with [facility] transfer center they will call us back. 2199: Discussed with [facility], they do not have IR but they will see if Urology will accept this patient and call us back. 2299: [facility] called back and accept patient for transfer. Accepting physician Kendra Howard, Patient's MAP greater than 65 and stable for transfer.. Discussed with the family again and they accept transfer. Critical Care Time: This patient required the highest level of my preparedness f or sudden and emergent intervention. I provided critical care services, which included ordering, reviewing, and interpreting of laboratory studies in real time. Determining immediate treatments, planning for future treatments and observing response to therapy. Further diagnostic tests and treatments were made based on laboratory studies and response to therapy. I coordinated care with various consultants. This critical care time is separate from any other billable procedures or interventions. The critical care time associated with this patient encounter is 90 minutes. <Jackson Rice MD - Last Filed: 01/01/25 20:50> Addendum Narrative: 1800: Care assumed from Dr. Menjivar, the previous shift emergency physician. Past medical, surgical, social and family history reviewed. Vitals and home medications reviewed. Results and treatment plan discussed. I will assume the care of the patient at this time and will follow the patient, pending Urology transfer. Dr. Pete reports that the family is at the bedside and they are requesting transfer. Patient has been urinating in the emergency department per Dr. MENJIVAR/family. I, Dr. Hari Higgins, will follow this patient with the resident. 1818:Patient is awake and responsive to family. Not diaphoretic. Blood pressures have been between 92-95 systolic and initially the temp was 104. Blood pressure is 92/64 with a pulse of 83 and now temperature is 97.9. Chest x-ray is reviewed and possibly bilateral opacities. Since the patient was recently hospitalized in November for sepsis secondary to UTI will cover with Zosyn in case he has pneumonia on top of his infected kidney stone. 1829: POLST form signed with daughter who is legal advertising account representative and POA, code status DNR/DNI. 1899: Discussed with transfer center from [facility]. Information given and they will call me back. 1911: blood pressure improved, 102/56, HR 77. 1949: patient rejected for transfer by [facility], per urology patient does not need urology service but needs emergent nephrostomy by IR, which is not available at their hospital at night. Recommended admission to [facility] and nephrostomy in AM. 2009: patient refused for admission to [facility] due to lack of urology services. 2044: BP worsening, MAP 63. Started on Levophed sepsis protocol <Obinna Karla - Last Filed: 01/01/25 23:01> Addendum Narrative: 1800: Care assumed from Dr. Menjivar, the previous shift emergency physician. Past medical, surgical, social and family history reviewed. Vitals and home medications reviewed. Results and treatment plan discussed. I will assume the care of the patient at this time and will follow the patient, pending Urology transfer. Dr. ePte reports that the family is at the bedside and they are requesting transfer. Patient has been urinating in the emergency department per Dr. MENJIVAR/family. I, Dr. Hari Higgins, will follow this patient with the resident. 1818:Patient is awake and responsive to family. Not diaphoretic. Blood pressures have been between 92-95 systolic and initially the temp was 104. Blood pressure is 92/64 with a pulse of 83 and now temperature is 97.9. Chest x-ray is reviewed and possibly bilateral opacities. Since the patient was recently hospitalized in November for sepsis secondary to UTI will cover with Zosyn in case he has pneumonia on top of his infected kidney stone. 1829: POLST form signed with daughter who is legal advertising account representative and POA, code status DNR/DNI. 1899: Discussed with transfer center from [facility]. Information given and they will call me back. 1911: blood pressure improved, 102/56, HR 77. 1949: Consulted with Dr. Zhang Briceno, urologist at [facility], who stated that patient needs emergent nephrostomy by IR but it is unavailable at this time and urology is not needed. The patient requires a nephrostomy tube to relieve obstruction. Spoke with Dr. Carpio, who confirmed that two IR physicians will be available in the morning. Will contact the medicine team for admission and nephrostomy in the morning. 2009: Patient refused for admission to [facility] due to lack of urology services. 2044: BP worsening, MAP 63. Started on Levophed sepsis protocol drip. [place]ONT Attestation <Obinna Acosta - Last Filed: 01/01/25 23:01> Attestation Scribe Attestation: I, Deonna Acosta, am scribing for and in the presence of Dr. Alejandro. Provider Notation: Although this document has been carefully reviewed, there may still be some phonetic and other typographical errors. These errors are purely grammatical due to imperfections in the software program and should not be construed in any way to compromise the substance of the patient's medical care during this visit.
[2025-01-01 18:38] LABS: Bacteria,Urine 1+; Bilirubin,Urine Negative (Negative); Blood,Urine 2+ (Negative); Clarity,Urine Turbid (Clear/Hazy); Color,Urine Yellow (Lt Yel-Yel); Glucose, Urine Negative (Negative); Ketones,Urine Negative (Negative); Leukocyte Esterase,Urine Positive (Negative); Nitrite,Urine Negative (Negative); PH,Urine 5.5 (5.0-7.0); Protein,Urine 1+ (Neg - Trace); RBC,Urine 16 /hpf (0-3); Specific Gravity,Urine 1.014 (1.001-1.035); Squamous Epithelial Cell,Urine < 1 /hpf (0-5); Urobilinogen,Urine Negative mg/dL (0.0-1.0); WBC,Urine 321 /hpf (0-5)
--- NOTE | 2025-01-01 18:55 | PC.NURSE ---
DR. KINJAL Ellington MADE AWARE PT'S BP IS 92/64 AT THIS TIME. NO NEW ORDERS, PER .
[2025-01-01] MEDS: PIPER/TAZO INJ 3.375 GM in SODIUM CHLORIDE 0.9% (Popper) 50 ML IV (19:14)
[2025-01-01] MEDS: ACETAMINOPHEN IVPB 1,000 MG/100 ML VIAL 250 MG IV (20:22)
[2025-01-01] MEDS: Norepinephrine/D5W 8mg/250ml 8 MG/250 ML BAG 6.591 MG IV (21:19)
[2025-01-02 00:07] VITALS: BP 100/60; PULSE 67; RESP 20; TEMP 36.6; O2SAT 97
--- NOTE | 2025-01-02 00:30 | PC.NURSE ---
REPORT WAS GIVEN TO REACH TEAM ANTHONY FORBES RN.
--- NOTE | 2025-01-02 00:33 | PC.NURSE ---
CALLED REPORT TO [facility] SPOKE TO DEANNA ZUNIGA.
== END 2025-01-02 00:38 | disposition short-term general hospital (02) ==
PROVIDERS: Emergency Medicine; Emergency Provider Emergency Medicine
DX: A41.9 Sepsis, unspecified organism (principal); N13.6 Pyonephrosis; E86.0 Dehydration; N17.9 Acute kidney failure, unspecified; I12.9 Hypertensive chronic kidney disease with stage 1 through stage 4 chronic kidney disease, or unspecified chronic kidney disease; E78.5 Hyperlipidemia, unspecified; E11.22 Type 2 diabetes mellitus with diabetic chronic kidney disease; N18.30 Chronic kidney disease, stage 3 unspecified
CPT/HCPCS: 51702; 36415; 71045; 74176; 80053; 81001; 83605; 83690; 83735; 83880; 84145; 84484; 85025; 85610; 85730; 87040; 87077; 87086; 87186; 87811; 93005; 96361; 96365; 96367; 99291; 99292; J0131; J0696; J2543; J3490; J7030; J7050; A9270

== ENCOUNTER → 2025-01-13 | Outpatient (BNVA) | payer MEDICARE, MEDICAID, SELFPAY | END | disposition home or self-care (01) | PROVIDERS: PCP Internal Medicine; Referring Provider Internal Medicine; Visit Provider Urology | DX: N20.2 Calculus of kidney with calculus of ureter (principal); Z93.6 Other artificial openings of urinary tract status; I12.9 Hypertensive chronic kidney disease with stage 1 through stage 4 chronic kidney disease, or unspecified chronic kidney disease; N18.31 Chronic kidney disease, stage 3a; E78.5 Hyperlipidemia, unspecified; G81.11 Spastic hemiplegia affecting right dominant side; F48.2 Pseudobulbar affect; R56.9 Unspecified convulsions | CPT/HCPCS: 99203; G0463 ==

== ENCOUNTER 2025-02-02 20:38 | Emergency (ER) | payer MEDICAID, SELFPAY ==
[2025-02-02 20:39] VITALS: BMI 21.5
[2025-02-02 21:16] VITALS: BP 123/88; PULSE 93; RESP 18; TEMP 36.4; O2SAT 96
--- NOTE | 2025-02-02 21:28 | XR_ITS ---
Examination: CT abdomen and pelvis without contrast. Coronal 3-D reconstructions. Sagittal 2-D reconstructions. Date and time of exam:February 02, 2025 2140 hrs. Indications: Flank pain one week, history kidney stones including 11 mm left ureteral calculus on CT stone study January 11, 2025 CTDI: vol (mGy): 12 DLP: (mGycm): 773 Technique: Axial images of the abdomen have been obtained, 3 mm slice thickness Intravenous contrast material has not been administered. Low dose protocols were performed. One or more of the following dose reduction techniques were used; automated exposure control, adjustment of the mA and/or KV according to patient size, use of iterative reconstruction technique. Findings: No focal liver or splenic lesions Contracted gallbladder No pancreatic or adrenal mass Significant scarring both kidneys Multiple bilateral renal calculi, the largest in the left kidney 10 mm Mild left hydronephrosis with 11 mm proximal left ureteral calculus again depicted Aortic calcification Normal appendix Abundant stool in the rectum Transverse prostate dimension 5 cm Proctitis pattern Fat-containing hernias Impression: Bilateral renal calculi Significant scarring both kidneys Mild left hydronephrosis, persistent 11 mm proximal left ureteral calculus
--- NOTE | 2025-02-02 21:30 | PD.EDRME ---
Rapid Medical Screening Exam E Arrival date/time: 02/02/25 20:38 69M with history of HTN, CKD, HLD, CVA with apashia, DM, and seizures presents to ED for evaluation after L nephrostomy tube fell out. Tube was put in more many large kidney stones in L-kidney. Patient was here initially and transferred. Patient called PCP who wants repeat CT/US to see if stones are still present. Chief Complaint: Urogenital-Male Vital signs: Vital Signs Temperature 97.5 F 02/02/25 21:16 Pulse Rate 93 02/02/25 21:16 Respiratory Rate 18 02/02/25 21:16 Blood Pressure 123/88 H 02/02/25 21:16 Pulse Oximetry (%) 96 02/02/25 21:16 Oxygen Delivery Method Room Air 02/02/25 21:16
[2025-02-02 23:23] VITALS: BP 137/96; PULSE 103; RESP 18; TEMP 36.5; O2SAT 97
--- NOTE | 2025-02-02 23:39 | PD.EDMALE ---
ED Male Genitalurinary RME/HPI General Chief complaint: Urogenital-Male Stated complaint: NEPHROSTOMY TUBE CAME OUT Time Seen by Provider: 02/03/25 05:56 Arrival date/time: 02/02/25 20:38 Limitations: no limitations RME / HPI RME / HPI Narrative: 02/02/25 20:38 69M with history of HTN, CKD, HLD, CVA with apashia, DM, and seizures presents to ED for evaluation after L nephrostomy tube fell out. Tube was put in more many large kidney stones in L-kidney. Patient was here initially and transferred. Patient called PCP who wants repeat CT/US to see if stones are still present. ------- Dr. Solomon's Main ED Evaluation: 69yo male with a history of stroke with residual right sided weakness, aphasia, kidney stones presents to the ED after his left nephrostomy tube fell out. Daughter states the patient had his left nephrostomy tube placed on 01/02/25 after being transferred to [facility]. She states today it fell out, so she brought him in for evaluation. Denies any fever, chills, back pain or any other associated symptoms. Related Data Home Medications ?Medication ?Instructions ?Recorded ?Confirmed amlodipine 10 mg tablet (Norvasc) 10 mg PO QDAY #0 tabs 07/06/17 01/13/25 escitalopram oxalate 10 mg tablet 10 mg PO QDAY #0 tabs 07/06/17 01/13/25 (Lexapro) ezetimibe 10 mg tablet (Zetia) 10 mg PO QDAY #0 tabs 07/06/17 01/13/25 omeprazole 20 mg capsule,delayed 20 mg PO QDAY ##0 07/06/17 01/13/25 release levetiracetam 500 mg tablet 500 mg PO BID #0 tabs 07/07/17 01/13/25 (Keppra) calcitriol 0.25 mcg capsule 0.25 mcg PO HS 12/11/24 01/13/25 glipizide 5 mg tablet 5 mg PO QDAY 12/11/24 01/13/25 lisinopril 20 mg tablet 20 mg PO .AM 12/11/24 01/13/25 vitamin B complex-vitamin C-folic 1 tab PO QDAY 12/11/24 01/13/25 acid 0.8 mg tablet (Dialyvite 800) Previous Rx's ?Medication ?Instructions ?Recorded aspirin 81 mg tablet,delayed 81 mg PO QDAY 30 days #30 tabs 12/14/24 release (Ecotrin Low Strength) Allergies Allergy/AdvReac Type Severity Reaction Status Date / Time meperidine Allergy Mild Itching Verified 01/13/25 13:49 clopidogrel AdvReac Severe TEMPORARY Verified 01/13/25 13:49 BLINDNESS morphine AdvReac Mild Nausea/Vomi Verified 01/13/25 13:49 tiing Review of Systems Review of Systems Systems Reviewed: All systems reviewed, normal except as documented Past Medical History Past Medical History NEUROLOGIC: Positive Neurological Disorders and Cerebrovascular Accident CARDIAC: Positive Hypertension; Negative Congestive Heart Failure RESPIRATORY: Negative Chronic Obstructive Pulmonary Disease (COPD) GENITOURINARY: Positive Genitourinary Disorders and Renal Disease ENDOCRINE: Negative Diabetes Mellitus Type 1 or Diabetes Mellitus Type 2 PSYCHO/SOCIAL: Positive Recreational Drug Use OTHER HISTORY: Positive Falls; Negative Blood Transfusions or Anesthesia Reactions Surgical History SURGICAL: Positive Gastrostomy and Amputation Social History SMOKING STATUS: Never smoker SUBSTANCE USE: does not use ED Exam General Limitations: Present no limitations General appearance: Present alert and in no apparent distress Head Head exam: Present atraumatic Eye Eye exam: Present normal appearance, PERRL and EOMI ENT ENT exam: Present normal exam, normal oropharynx and mucous membranes moist Neck Neck exam: Present normal inspection, full ROM and trachea midline Chest Chest inspection: Present normal inspection and symmetric chest wall rise Respiratory Respiratory exam: Present normal lung sounds bilaterally Cardiovascular Cardiovascular exam: Present regular rate, normal rhythm and normal heart sounds Abdominal Exam Abdominal exam: Present soft and normal bowel sounds Extremities Exam Extremities exam: Present normal inspection and full ROM Back Exam Back exam: Present normal inspection and full ROM Neurological Exam Neurological exam: Present alert, oriented X3 and CN II-XII intact Psychiatric Psychiatric exam: Present normal affect and normal mood Skin Skin exam: Present warm, dry, intact and normal color Course Course Course Narrative: 0600: Care signed out to Dr. Mccord (emergency physician). Past medical, surgical, social and family history reviewed. Vitals and home medications reviewed. Results and treatment plan discussed. They will assume the care of the patient at this time and will follow the patient, pending IR. Quality Measures none Orders Category Date Time Status CT abdomen pelvis wo con Stat Exams 04/10/25 21:28 Completed CBC Stat Lab 02/03/25 01:45 Completed CMP [Comprehensive Metabolic Panel] Stat Lab 02/03/25 01:45 Completed Vital Signs Vital signs: Vital Signs Temperature 97.5 F 02/02/25 21:16 Pulse Rate 93 02/02/25 21:16 Respiratory Rate 18 02/02/25 21:16 Blood Pressure 123/88 H 02/02/25 21:16 Pulse Oximetry (%) 96 02/02/25 21:16 Oxygen Delivery Method Room Air 02/02/25 21:16 Urogenital - Male MDM Narrative MDM Narrative:: Scribe Attestation: 02/02/25 - Shannon Donald am scribing for and in the presence of Dr. Solomon. Patient data External records reviewed:: [facility] previous records (Per chart review, patient was transferred to [facility] on 01/01/25 for placement of nephrostomy tube.) Clinical information provided by:: patient Social determinants that could affect healthcare access:: none Patient has the following chronic illnesses:: stroke with residual right sided weakness, aphasia, kidney stones How is presenting disease/condition affected by chronic disease/condition?: uneffected by Evaluation data The following diagnostics were reviewed and interpreted by me:: lab results and radiology exam(s) Lab and/or radiology exams considered but not ordered:: none Interpretation Summary: [facility] Report Signed Patient: CHRIS JAIN Record#: [id number] Birthdate: 1955 Age/Sex: 69 / M Location: [facility] Attending Dr: Ordering Physician: Johnny Rodriguez PA-C Date of Service: 02/02/25 Procedure(s): CT abdomen pelvis wo con Accession Number(s): [id number] cc: Navin Casper MD; NO PRIMARY/FAMILY,PHYSICIAN; Johnny Rodriguez PA-C~ Examination: CT abdomen and pelvis without contrast. Coronal 3-D reconstructions. Sagittal 2-D reconstructions. Date and time of exam:February 02, 2025 2140 hrs. Indications: Flank pain one week, history kidney stones including 11 mm left ureteral calculus on CT stone study January 11, 2025 CTDI: vol (mGy): 12 DLP: (mGycm): 773 Technique: Axial images of the abdomen have been obtained, 3 mm slice thickness Intravenous contrast material has not been administered. Low dose protocols were performed. One or more of the following dose reduction techniques were used; automated exposure control, adjustment of the mA and/or KV according to patient size, use of iterative reconstruction technique. Findings: No focal liver or splenic lesions Contracted gallbladder No pancreatic or adrenal mass Significant scarring both kidneys Multiple bilateral renal calculi, the largest in the left kidney 10 mm Mild left hydronephrosis with 11 mm proximal left ureteral calculus again depicted Aortic calcification Normal appendix Abundant stool in the rectum Transverse prostate dimension 5 cm Proctitis pattern Fat-containing hernias Impression: Bilateral renal calculi Significant scarring both kidneys Mild left hydronephrosis, persistent 11 mm proximal left ureteral calculus Dictated By: Navin Casper MD Signed By: <Electronically signed by Navin Casper MD in OV> 02/02/25 2202 Medications / Prescriptions Medications or Prescriptions considered but not ordered:: none Medication administrations:: none Consultations Consultation(s) initiated? (list below): No Diagnosis Urogenital Male Differential Diagnosis: other (nephrostomy tube dislodgement, nephrostomy tube malfunction, obstructing kidney stone) Most likely diagnosis given after review of the tests above:: see clinical impression below Admission Indicated Admission indicated?: not indicated Admission Request Was there a request for admission?: No Disposition Plan Disposition Plan: other (specify) (Signed out to Dr. Mccord at 0600 pending IR.) Discharge Plan Plan Patient condition on transfer: Stable Prescriptions/Referrals Prescriptions/Med Rec: No Action amlodipine [Norvasc] 10 MG tablet 10 mg PO QDAY Qty: 0 omeprazole 20 MG capsule,delayed release(DR/EC) 20 mg PO QDAY Qty: 0 escitalopram oxalate [Lexapro] 10 MG tablet 10 mg PO QDAY Qty: 0 ezetimibe [Zetia] 10 MG tablet 10 mg PO QDAY Qty: 0 levetiracetam [Keppra] 500 MG tablet 500 mg PO BID Qty: 0 calcitriol 0.25 mcg capsule 0.25 mcg PO HS Patient Comments: TAKE 1 CAPSULE BY MOUTH EVERY DAY Dialyvite 800 0.8 mg tablet 1 tab PO QDAY lisinopril 20 mg tablet 20 mg PO .AM Patient Comments: TAKE 1 TABLET BY MOUTH EVERY DAY glipizide 5 mg tablet 5 mg PO QDAY aspirin [Ecotrin Low Strength] 81 mg Tablet,Delayed Release (Dr/Ec) 81 mg PO QDAY 30 Days Qty: 30 3RF Referrals: No Primary/Family,Physician [Primary Care Provider] - In 1 week Problem List Clinical Impression: Displacement of nephrostomy catheter Patient/Caregiver Discharge Instructions Print Language: Cook Islander
--- NOTE | 2025-02-03 01:00 | PC.NURSE ---
PT HAD NEPHROSOTOMY PLACED 01/02/2025 CAME TO ER IT CAME OUT TODAY AROUND 1999.
[2025-02-03 01:03] VITALS: BP 141/96; PULSE 97; RESP 16; TEMP 36.5; O2SAT 97
[2025-02-03 02:11] LABS: Basophils % (Auto) 1 % (0-2.5); Eosinophils # (Auto) 0.1 Thou/mm3 (0.0-0.5); Eosinophils % (Auto) 1 % (0-10); Hematocrit 43.1 % (41.0-53.0); Hemoglobin 13.8 g/dL (13.5-16.0); Immature Granulocytes % (Auto) 0 % (0-0); Immature Granulocytes Auto 0.03 Thou/mm3 (0.00-0.00); Lymphocytes # (Auto) 1.3 Thou/mm3 (1.0-4.8); Lymphocytes % (Auto) 19 % (10-50); Mean Corpuscular Hemoglobin 27.8 pg (25.0-35.0); Mean Corpuscular Volume 87 fL (80-100); Monocytes # (Auto) 0.6 Thou/mm3 (0.0-0.8); Monocytes % (Auto) 8 % (0-12); Neutrophils # (Auto) 4.7 Thou/mm3 (1.8-7.7); Neutrophils % (Auto) 70 % (37-80); Nucleated Red Blood Cell % 0 /100 WBC (0); Platelet Count 181 Thou/mm3 (140-440); RDW Standard Deviation 46.6 fL (35.1-43.9); Red Blood Count 4.97 Miln/mm3 (4.50-5.90); White Blood Count 6.7 Thou/mm3 (3.8-10.6)
[2025-02-03 02:16] LABS: Alanine Aminotransferase 29 U/L (10-49); Albumin, Serum 4.1 gm/dL (3.4-4.8); Albumin/Globulin Ratio 1.3 (1.2-2.2); Alkaline Phosphatase 132 U/L (46-116); Anion Gap 8 (7-16); Aspartate Amino Transferase 21 U/L (0-34); BUN/Creatinine Ratio 13 Ratio (12-20); Bilirubin,Total 0.5 mg/dL (0.3-1.2); Blood Urea Nitrogen 23 mg/dL (9-23); Calcium 11.3 mg/dL (8.3-10.6); Calcium (Corrected) 11.3 mg/dL (8.5-10.1); Carbon Dioxide 26.5 mMol/L (20.0-31.0); Chloride 106 mMol/L (98-107); Creatinine (Component) 1.8 mg/dL (0.6-1.3); Estimated Creatinine Clearance 36.7 mL/min (>60); Globulin 3.2 gm/dL (2.3-3.5); Glucose 158 mg/dL (74-106); Osmolality,Calculated 286 (275-295); Potassium 4.7 mMol/L (3.4-5.1); Sodium 140 mMol/L (136-145); Total Protein 7.3 gm/dL (5.7-8.2); eGFR 40 See Note
[2025-02-03 03:00] VITALS: BP 135/96; PULSE 103; RESP 16; TEMP 36.9; O2SAT 98
[2025-02-03 04:58] VITALS: BP 127/90; PULSE 96; RESP 18; TEMP 36.1; O2SAT 96
[2025-02-03 06:00] VITALS: BP 138/90; PULSE 86; RESP 16; TEMP 36.8; O2SAT 97
--- NOTE | 2025-02-03 06:50 | EDNOTE_ITS ---
Emergency Room Addendum <Sola Leija - Last Filed: 02/03/25 17:02> Addendum Narrative: 0600: Care assumed from Dr. Alejandro, the previous shift emergency physician. Past medical, surgical, social and family history reviewed. Vitals and home medications reviewed. I will assume the care of the patient at this time, pending IR for nephrostomy tube placement. Please refer to the emergency department record for history and examination from initial visit.?The following addendum documentation note is intended to reflect any pending information, findings, or radiology results not included in the patient?s initial chart. 0705: I spoke with patient and daughter at bedside. Daughter reports the home health nurse assessed the patient and nephrostomy tube was in place. However, states last night while changing and moving around the tube was accidently pulled and dislodged. No other complaints reported. Patient and daughter aware of pending IR nephrostomy tube placement. Urologist: Dr. Gavin <Rashad Mccord MD - Last Filed: 02/03/25 17:20> Addendum Narrative: 0600: Care assumed from Dr. Alejandro, the previous shift emergency physician. Past medical, surgical, social and family history reviewed. Vitals and home medications reviewed. I will assume the care of the patient at this time, pending IR for nephrostomy tube placement. Please refer to the emergency department record for history and examination from initial visit.?The following addendum documentation note is intended to reflect any pending information, findings, or radiology results not included in the patient?s initial chart. At this patient was signed out 0600 hrs. waiting for IR to place a nephrostomy tube evidently patient went over for an assessment was found to have a shrunken kidney with no hydro on ultrasound per the radiologist. Unfortunately he was in a procedure and when I finally reached him multiple hours later he informed me that this patient did not have enough hydro to warrant the tube being placed and felt the patient could go home come back on Thursday. I explained his patient has had hydro has a CT with some mild hydro and an obstructing stone approximately. Again he felt since patient has no symptoms that this could be done as an outpatient at a later date when he reassessed. When back in the room spoke with the daughter who states they just got out [place] [facility] [place] month ago with a nephrostomy tube placed and they went through the same process again. We discussed the case further with the daughter and she thought we could get a hold of the urologist who attempted get a hold of Dr. Gavin the patient's urologist. His office number was called several times with no response. When back in the room talk with the daughter further and currently are trying to reach their primary care doctor Dr. Gary loera in [place] see if she can follow this patient up early next week and schedule IR to place a nephrostomy tube. Either way at's 1419 hrs. patient is asymptomatic has no symptoms there is no evidence of any sepsis or infection. I will give the discharge the patient to follow-up with primary care and return for nephrostomy or return if getting worse in any way. Daughter understands this. Also understands that we do not have IR on the weekend and that we will have to be transferred to another facility if needed Patient is also connected to Dr. Crowe and Primary care doctor in [place]. We spoke to that office and got a hold of Dr. Patino who is on-call. They evidently have an open slots for Thursday and Thursday but they can still be added on so they know to call and contact and follow-up and if getting worse in the meantime they can go to the local hospital for her primary doctor who does have IR services. 0705: I spoke with patient and daughter at bedside. Daughter reports the home health nurse assessed the patient and nephrostomy tube was in place. However, states last night while changing and moving around the tube was accidently pulled and dislodged. No other complaints reported. Patient and daughter aware of pending IR nephrostomy tube placement. Urologist: Dr. Gavin called but no response and nobody is answering the phone of the office at 1400 hrs. and there is no pager to reach him.
--- NOTE | 2025-02-03 07:40 | PC.NURSE ---
Upon assumption of care pt resting w/eyes closed, alert to voice. Per daughter pt is non-vebal, daughter is able to understand and communicate for him. Pt and daughter updated on POC and in agreement. Will continue w/POC.
== END 2025-02-03 15:10 | disposition home or self-care (01) ==
PROVIDERS: Emergency Medicine; Emergency Provider Emergency Medicine
DX: T83.022A Displacement of nephrostomy catheter, initial encounter (principal); N13.2 Hydronephrosis with renal and ureteral calculous obstruction; I12.9 Hypertensive chronic kidney disease with stage 1 through stage 4 chronic kidney disease, or unspecified chronic kidney disease; E11.22 Type 2 diabetes mellitus with diabetic chronic kidney disease; N18.9 Chronic kidney disease, unspecified; E78.5 Hyperlipidemia, unspecified; I69.320 Aphasia following cerebral infarction; I69.351 Hemiplegia and hemiparesis following cerebral infarction affecting right dominant side; Y73.2 Prosthetic and other implants, materials and accessory gastroenterology and urology devices associated with adverse incidents; Y84.6 Urinary catheterization as the cause of abnormal reaction of the patient, or of later complication, without mention of misadventure at the time of the procedure
CPT/HCPCS: 36415; 74176; 80053; 85025; 99284

== ENCOUNTER 2025-02-14 10:51 | Inpatient (IN) | payer MEDICARE, MEDICAID, SELFPAY ==
[2025-02-14 10:51] VITALS: BMI 22.9
[2025-02-14 11:14] VITALS: BP 122/83; PULSE 91; RESP 19; TEMP 37; O2SAT 96
--- NOTE | 2025-02-14 11:22 | XR_ITS ---
Examination: CT abdomen and pelvis without contrast. Coronal 3-D reconstructions. Sagittal 2-D reconstructions. Date and time of exam:February 14, 2025 1226 hours Comparison February 02, 2025 INDICATIONS: Left flank pain and no urine output beginning 2 days ago CTDI: vol (mGy): 10.3 DLP: (mGycm): 657 Technique: Axial images of the abdomen have been obtained, 3 mm slice thickness Intravenous contrast material has not been administered. Low dose protocols were performed. One or more of the following dose reduction techniques were used; automated exposure control, adjustment of the mA and/or KV according to patient size, use of iterative reconstruction technique. Findings: No focal liver or splenic lesions No gallstones No pancreatic or adrenal mass Severe scarring both kidneys with bilateral renal calculi, the largest in the left kidney 13 mm Mild left hydronephrosis, persistent 10 mm proximal left ureteral calculus Normal appendix No bowel obstruction Abundant stool in the colon No bladder mass or bladder calculi Transverse prostate dimension 4.8 cm Moderate osteopenia IMPRESSION: Persistent mild left hydronephrosis secondary to 10 mm proximal left ureteral calculus
--- NOTE | 2025-02-14 11:23 | PD.EDRME ---
Rapid Medical Screening Exam FOR[facility], LAT[facility] Arrival date/time: 02/14/25 10:51 69-year-old male with a history of hypertension, a CVA that occurred in 2012, presents to the emergency room with a chief complaint of urinary retention. Patient was seen here 11 days ago and there is an 11 mm obstructing stone in his ureter. Patient is seen and managed by Dr. Gavin and according to daughter at bedside the patient has not had any urine output since 2 AM this morning and is having pain and tenderness to his abdomen. Patient has a history of a nephrostomy tube that was dislodged accidentally. I have greeted and performed a focused initial assessment of this patient. A comprehensive ED assessment and evaluation of the patient, analysis of all test results, and completion of the medical decision making process will be conducted by additional ED providers. Chief Complaint: General Adult/Misc Complain Vital signs: Vital Signs Temperature 98.6 F 02/14/25 11:14 Pulse Rate 91 02/14/25 11:14 Respiratory Rate 19 02/14/25 11:14 Blood Pressure 122/83 02/14/25 11:14 Pulse Oximetry (%) 96 02/14/25 11:14 Oxygen Delivery Method Room Air 02/14/25 11:14 Vital signs reviewed by provider: Yes
[2025-02-14 12:15] LABS: Basophils % (Auto) 1 % (0-2.5); Eosinophils # (Auto) 0.2 Thou/mm3 (0.0-0.5); Eosinophils % (Auto) 3 % (0-10); Hematocrit 44.2 % (41.0-53.0); Hemoglobin 14.4 g/dL (13.5-16.0); Immature Granulocytes % (Auto) 1 % (0-0); Immature Granulocytes Auto 0.03 Thou/mm3 (0.00-0.00); Lymphocytes # (Auto) 1.6 Thou/mm3 (1.0-4.8); Lymphocytes % (Auto) 29 % (10-50); Mean Corpuscular HGB Conc 32.6 g/dl (31.0-37.0); Mean Corpuscular Hemoglobin 27.4 pg (25.0-35.0); Mean Corpuscular Volume 84 fL (80-100); Monocytes # (Auto) 0.4 Thou/mm3 (0.0-0.8); Monocytes % (Auto) 7 % (0-12); Neutrophils # (Auto) 3.3 Thou/mm3 (1.8-7.7); Neutrophils % (Auto) 60 % (37-80); Nucleated Red Blood Cell % 0 /100 WBC (0); Platelet Count 254 Thou/mm3 (140-440); Red Blood Count 5.25 Miln/mm3 (4.50-5.90); White Blood Count 5.6 Thou/mm3 (3.8-10.6)
[2025-02-14 12:24] LABS: Alanine Aminotransferase 27 U/L (10-49); Albumin, Serum 4.3 gm/dL (3.4-4.8); Albumin/Globulin Ratio 1.4 (1.2-2.2); Alkaline Phosphatase 114 U/L (46-116); Anion Gap 6 (7-16); Aspartate Amino Transferase 22 U/L (0-34); BUN/Creatinine Ratio 13 Ratio (12-20); Bilirubin,Total 0.4 mg/dL (0.3-1.2); Blood Urea Nitrogen 21 mg/dL (9-23); Calcium 10.6 mg/dL (8.3-10.6); Calcium (Corrected) 10.6 mg/dL (8.5-10.1); Carbon Dioxide 29.1 mMol/L (20.0-31.0); Chloride 108 mMol/L (98-107); Creatinine (Component) 1.6 mg/dL (0.6-1.3); Estimated Creatinine Clearance 44.1 mL/min (>60); Glucose 154 mg/dL (74-106); Lipase 52 U/L (12-53); Osmolality,Calculated 290 (275-295); Potassium 4.3 mMol/L (3.4-5.1); Sodium 143 mMol/L (136-145); Total Protein 7.3 gm/dL (5.7-8.2); eGFR 46 See Note
--- NOTE | 2025-02-14 13:51 | PD.EDADULT ---
ED General RME/HPI General Chief complaint: General Adult/Misc Complain Stated complaint: L) KIDNEY STONE W/ OCCLUSION, NO URINE OUTPUT Time Seen by Provider: 02/14/25 12:41 Arrival date/time: 02/14/25 10:51 CC: Urinary retention HPI patient has an ongoing issue with a large ureteral stone in the left ureter that is potentially been causing urinary retention. The daughter noted that starting at 2 AM today the patient has had no urinary output patient is a complex medical case, last visit was on 02/03/2025 for the same complaint patient ultimately got a nephrostomy tube which fell out. Daughter has been in contact with Dr. Gavin urologist and Dr. Rosenberg clinical research technician. Who state to come to the emergency room for further follow-up. Patient is afebrile nontoxic-appearing appears not in any acute distress. Daughter at bedside Note on note initial assessment the patient's diaper did have a yellow urine in it. So this patient is urinating. RME / HPI RME / HPI narrative: 02/14/25 10:51 69-year-old male with a history of hypertension, a CVA that occurred in 2012, presents to the emergency room with a chief complaint of urinary retention. Patient was seen here 11 days ago and there is an 11 mm obstructing stone in his ureter. Patient is seen and managed by Dr. Gavin and according to daughter at bedside the patient has not had any urine output since 2 AM this morning and is having pain and tenderness to his abdomen. Patient has a history of a nephrostomy tube that was dislodged accidentally. I have greeted and performed a focused initial assessment of this patient. A comprehensive ED assessment and evaluation of the patient, analysis of all test results, and completion of the medical decision making process will be conducted by additional ED providers. Related Data Home Medications ?Medication ?Instructions ?Recorded ?Confirmed amlodipine 10 mg tablet (Norvasc) 10 mg PO QDAY #0 tabs 07/06/17 01/13/25 escitalopram oxalate 10 mg tablet 10 mg PO QDAY #0 tabs 07/06/17 01/13/25 (Lexapro) ezetimibe 10 mg tablet (Zetia) 10 mg PO QDAY #0 tabs 07/06/17 01/13/25 omeprazole 20 mg capsule,delayed 20 mg PO QDAY ##0 07/06/17 01/13/25 release levetiracetam 500 mg tablet 500 mg PO BID #0 tabs 07/07/17 01/13/25 (Keppra) calcitriol 0.25 mcg capsule 0.25 mcg PO HS 12/11/24 01/13/25 glipizide 5 mg tablet 5 mg PO QDAY 12/11/24 01/13/25 lisinopril 20 mg tablet 20 mg PO .AM 12/11/24 01/13/25 vitamin B complex-vitamin C-folic 1 tab PO QDAY 12/11/24 01/13/25 acid 0.8 mg tablet (Dialyvite 800) Previous Rx's ?Medication ?Instructions ?Recorded aspirin 81 mg tablet,delayed 81 mg PO QDAY 30 days #30 tabs 12/14/24 release (Ecotrin Low Strength) Allergies Allergy/AdvReac Type Severity Reaction Status Date / Time meperidine Allergy Mild Itching Verified 02/14/25 10:54 clopidogrel AdvReac Severe TEMPORARY Verified 02/14/25 10:54 BLINDNESS morphine AdvReac Mild Nausea/Vomi Verified 02/14/25 10:54 tiing Review of Systems Review of Systems ROS Unobtainable: unobtainable due to mental status Past Medical History Past Medical History NEUROLOGIC: Positive Neurological Disorders and Cerebrovascular Accident CARDIAC: Positive Cardiac Disorders, Myocardial Infarction (2012) and Hypertension; Negative Congestive Heart Failure RESPIRATORY: Negative Chronic Obstructive Pulmonary Disease (COPD) GASTROINTESTINAL: Positive Hemorrhoids GENITOURINARY: Positive Genitourinary Disorders (NEPHROSTOMY TUBE) and Renal Disease ENDOCRINE: Positive Diabetes Mellitus Type 2; Negative Diabetes Mellitus Type 1 PSYCHO/SOCIAL: Positive Recreational Drug Use and Depression OTHER HISTORY: Positive Falls and Anesthesia Reactions; Negative Blood Transfusions Surgical History SURGICAL: Positive Gastrostomy (2013) and Amputation (LEFT MIDDLE FINGER) Social History SMOKING STATUS: Never smoker SUBSTANCE USE: does not use ED Exam Narrative Physical exam: [General: Appears not in any acute distress Head normocephalic HEENT: Within acceptable limits Neck is supple nontender Chest equal chest rise nontender to palpation Respiratory: Clear to auscultation no wheezes crackles or rubs CV: Rate rhythm is regular no murmurs rubs or clicks Abdomen is distended secondary to body habitus soft nontender no masses positive bowel sounds all 4 quadrants Back: No CVA tenderness no spinous process tenderness from cervical spine thoracic and lumbar spine Skin: Intact no petechiae rash induration ulceration or crepitus Extremities: Moving all extremity against resistance cap refill less than 2 seconds neurosensory intact Neuro: Awake(baseline) Course Course Course Narrative: Patient's case discussed with Dr. Gavin who agrees to consult on the patient for admission. He is considering a stent placement and/or laser surgery. The patient and the daughter are in agreement with this plan. Patient's case discussed with Dr. Rhodes resident for Dr. Riggins who agrees to accept the patient for admission. Quality Measures none Orders Category Date Time Status Consult to Urology Stat Cons 02/14/25 13:[address] abdomen pelvis wo con Stat Exams 02/14/25 11:22 Completed CBC Stat Lab 02/14/25 11:30 Completed CMP [Comprehensive Metabolic Panel] Stat Lab 02/14/25 11:30 Completed Lipase Stat Lab 02/14/25 11:30 Completed PT [Prothrombin Time with INR] Stat Lab 02/14/25 11:30 Received PTT [Partial Thromboplastin Time] Stat Lab 02/14/25 11:30 Received UA [Urinalysis] Stat Lab 02/14/25 11:22 Ordered Urine Culture Stat Lab 02/14/25 11:22 Ordered Vital Signs Vital signs: Vital Signs Temperature 98.6 F 02/14/25 11:14 Pulse Rate 91 02/14/25 11:14 Respiratory Rate 19 02/14/25 11:14 Blood Pressure 122/83 02/14/25 11:14 Pulse Oximetry (%) 96 02/14/25 11:14 Oxygen Delivery Method Room Air 02/14/25 11:14 Discharge Plan Plan Patient Disposition: Other Care w/in Hosp ([facility]) Prescriptions/Referrals Prescriptions/Med Rec: No Action amlodipine [Norvasc] 10 MG tablet 10 mg PO QDAY Qty: 0 omeprazole 20 MG capsule,delayed release(DR/EC) 20 mg PO QDAY Qty: 0 escitalopram oxalate [Lexapro] 10 MG tablet 10 mg PO QDAY Qty: 0 ezetimibe [Zetia] 10 MG tablet 10 mg PO QDAY Qty: 0 levetiracetam [Keppra] 500 MG tablet 500 mg PO BID Qty: 0 calcitriol 0.25 mcg capsule 0.25 mcg PO HS Patient Comments: TAKE 1 CAPSULE BY MOUTH EVERY DAY Dialyvite 800 0.8 mg tablet 1 tab PO QDAY lisinopril 20 mg tablet 20 mg PO .AM Patient Comments: TAKE 1 TABLET BY MOUTH EVERY DAY glipizide 5 mg tablet 5 mg PO QDAY aspirin [Ecotrin Low Strength] 81 mg Tablet,Delayed Release (Dr/Ec) 81 mg PO QDAY 30 Days Qty: 30 3RF Referrals: No Primary/Family,Physician [Primary Care Provider] - In 1 week Problem List Clinical Impression: Urolithiasis Patient/Caregiver Discharge Instructions Education Materials: ED Kidney Stone Undescended No ... Print Language: Kiswahili Stand Alone Forms: Mari Award Info., Patient Portal Info Letter PA/SENIOR PORTFOLIO ANALYST Supervising Physician PA/SENIOR PORTFOLIO ANALYST Supervising Physician: Robert Newman MDM Patient Acuity High Acuity (complete MDM) Narrative: Patient history includes a CVA with aphasia diabetes history of seizures recurrent urolithiasis. Recurrent CKD hypertension and depression Clinical Information Provided by: patient and family Other: Dr Gavin Medical Records reviewed [facility] Chronic Illness/Social Conditions Explain: See above Labs Lab(s) Interpretation(s): CBC shows no acute leukocytosis anemia thrombocytopenia CMP shows sodium 143 potassium of 4.3 chloride of 108 carbon dioxide of 29.1 gap of 6 BUN 21 creatinine 1.6 glucose of 154 no transaminitis or T. bili elevation Lipase of 52 Imaging Imaging Interpretation(s): CT shows a 10 mm proximal ureter calculus with mild hydronephrosis. Diagnosis Differential Diagnosis ED Complaint MDM: Hydronephrosis hydroureter urolithiasis
[2025-02-14 14:23] LABS: INR 1.1 (0.9-1.3); Partial Thromboplastin Time 26.7 Seconds (22.0-36.0); Prothrombin Time 11.7 Seconds (9.0-12.2)
[2025-02-14 14:38] VITALS: BP 150/108; PULSE 76; RESP 19; TEMP 36.5; O2SAT 95
[2025-02-14 16:06] LABS: Uric Acid 7.4 mg/dL (3.7-9.2)
[2025-02-14 16:24] LABS: Parathyroid Hormone Intact 84.9 pg/ml (18.5-88.0)
[2025-02-14 16:30] VITALS: BP 132/94
[2025-02-14] MEDS: cefTRIAXone/D5w 1gm IV premix 1,000 MG/50 ML BAG IV (16:34)
[2025-02-14] MEDS: traMADol HCL 50 MG TABLET PO ×2 (16:53→23:52)
[2025-02-14 17:10] VITALS: BP 132/94; PULSE 88; RESP 19; TEMP 36.7; O2SAT 94
[2025-02-14 17:13] LABS: Vitamin D 25 Hydroxy Total 63.4 ng/mL (7.3-40.2)
[2025-02-14] MEDS: RINGERS LACTATED 1000 ML 1,000 ML 100 ML IV (17:53)
[2025-02-14 18:45] VITALS: BP 161/100; PULSE 88; RESP 17; TEMP 37; O2SAT 94
--- NOTE | 2025-02-14 19:23 | ESHP_ITS ---
<Statement entered by Anum Riggins MD - 02/20/25 13:20> I reviewed above note and agree with findings and plans. I have also personally examined the patient with medicine team and went over assessment and plan with medical team including creative intern and resident physician. <Statement entered by Jackson Rice MD - 02/15/25 17:09> Senior Resident Attestation: I supervised/discussed management plan with creative intern physician Dr. Torres, and was involved in the care of this patient. I personally saw and examined the patient and discussed the assessment and plan with the entire medicine team, including my attending. I agree with the assessment and plan as documented. Patient is 69 years old male with past medical history of hypertension, hyperlipidemia, CVA with residual aphasia, CKD, diabetes mellitus, remote history of seizures, renal calculi status post nephrostomy tube in 12/2024 was advised to come to emergency room by his urologist Dr. Gavin due to anuria and worsening left flank pain and was admitted for lithotripsy and ureteral stent placement. Patient's care was discussed with attending physician, Dr. Riggins. Jackson Rice MD PGY-2. Documentation for date of: 02/14/25 HPI History of Present Illness History of present illness: Patient had history of aphasia and most of the history is taken from daughter at the bedside 69-year-old male with past medical history of hypertension, hyperlipidemia, CVA 2013 with residual aphasia, CKD, diabetes mellitus, history of seizures, renal calculi status post nephrostomy tube in 12/2024 presented to the hospital with chief complaints of left flank and groin pain since 1 day. Per daughter, patient is admitted in November 2024 for UTI and renal calculi for which she was treated with antibiotics and discharged later. Patient came back in December 2024 for anuria, hydronephrosis for which he was transferred to [place] and patient underwent nephrostomy during that time. A week ago, daughter reported that nephrostomy tube automatically dislodged and since 2 AM on the day of admission, patient had complete anuria and left flank pain and groin pain for which he was brought to the hospital. Denies fever, burning micturition, hematuria, nausea, vomitings. Patient is following with Dr. Nicole and he recommended to get admitted in the hospital to get nephrostomy. ED course: - Vitals at the time of admission are stable - Labs are significant for creatinine 1.6, glucose 154, corrected calcium 10.6, 25-hydroxy vitamin D 63.4, PTH 84.9 - Abdomen/pelvis CT showed persistent hydronephrosis with 10 mm renal calculi in the left proximal ureter - Dr. Nicole was consulted and recommended nephrostomy tomorrow - Patient is admitted in the hospital for renal calculi causing anuria Past medical history: Hypertension, hyperlipidemia, CVA, CKD, diabetes mellitus, seizures, renal calculi status post nephrostomy tube Past surgical history: Nephrostomy tube, left middle finger distal phalangectomy Social history: Stopped cocaine abuse in 2012, denies smoking, alcohol, other illicit drug abuse Allergies: Morphine-flushing of the face Review of Systems Review of Systems Systems Reviewed: All systems reviewed, normal except as documented Past Medical History Past Medical History NEUROLOGIC: Positive Neurological Disorders and Cerebrovascular Accident CARDIAC: Positive Cardiac Disorders, Myocardial Infarction (2012) and Hypertension; Negative Congestive Heart Failure RESPIRATORY: Negative Chronic Obstructive Pulmonary Disease (COPD) GASTROINTESTINAL: Positive Hemorrhoids GENITOURINARY: Positive Genitourinary Disorders (NEPHROSTOMY TUBE) and Renal Disease ENDOCRINE: Positive Diabetes Mellitus Type 2; Negative Diabetes Mellitus Type 1 PSYCHO/SOCIAL: Positive Recreational Drug Use and Depression OTHER HISTORY: Positive Falls and Anesthesia Reactions; Negative Blood Transfusions Surgical History SURGICAL: Positive Gastrostomy (2013) and Amputation (LEFT MIDDLE FINGER) Social History SMOKING STATUS: Never smoker SUBSTANCE USE: does not use Exam Vital Signs Temp Pulse Resp BP Pulse Ox O2 Del Method 98.6 F 88 17 161/100 H 94 L Room Air 02/14/25 18:45 02/14/25 18:45 02/14/25 18:45 02/14/25 18:45 02/14/25 18:45 02/14/25 17:10 Narrative Exam General: Awake. HEENT: Normocephalic, atraumatic, mucous membranes moist. Heart: Regular rate and rhythm, no murmurs. Lungs: Clear to auscultation with no wheezing or crackles. Abdomen: Soft, nondistended, positive bowel sounds. ?Tenderness noted in the left flank and hypogastric area Neurologic: Alert and oriented x3, noted aphasia and residual weakness in right half of the body Extremities: No edema. Skin: No rash or ecchymoses. Results: Labs 02/14/25 11:30 02/14/25 11:30 Labs: Short CBC 02/14/25 Range/Units 11:30 WBC 5.6 (3.8-10.6) Thou/mm3 Hgb 14.4 (13.5-16.0) g/dL Hct 44.2 (41.0-53.0) % Plt Count 254 D (140-440) Thou/mm3 BMP 02/14/25 11:30 Sodium 143 Potassium 4.3 Chloride 108 H Carbon Dioxide 29.1 BUN 21 Creatinine 1.6 H Glucose 154 H Calcium 10.6 Liver Function 02/14/25 Range/Units 11:30 Total Bilirubin 0.4 (0.3-1.2) mg/dL AST 22 (0-34) U/L ALT 27 (10-49) U/L Alkaline Phosphatase 114 (46-116) U/L Albumin 4.3 (3.4-4.8) gm/dL Quality Measures Quality Measures none Advance care planning discussed with:: patient and child Medications Home Medications and Allergies Home Medications ?Medication ?Instructions ?Recorded ?Confirmed ?Type escitalopram oxalate 10 mg tablet 10 mg PO QDAY #0 tab s 07/06/17 02/14/25 History (Lexapro) ezetimibe 10 mg tablet (Zetia) 10 mg PO QDAY #0 tabs 0 07/06/17 02/14/25 History levetiracetam 500 mg tablet 500 mg PO BID #0 tabs 06/2602/14/25 History (Keppra) lisinopril 20 mg tablet 20 mg PO .AM 12/11/24 History vitamin B complex-vitamin C-folic 1 tab PO QDAY 02/14/25 History acid 0.8 mg tablet (Dialyvite 800) acetaminophen 325 mg tablet 325 mg PO QDAY 02/14/25 History cefpodoxime 200 mg tablet 200 mg PO Q12H 02/14/2501/25 History potassium citrate 10 mEq (1,080 10 meq PO QDAY 5 02/14/25 History mg) tablet,extended release tamsulosin 0.4 mg capsule 0.4 mg PO QDAY 02/14/2512/20 History tramadol 50 mg tablet 50 mg PO QPM PRN pain 02/14/25 History Allergies Allergy/AdvReac Type Severity Reaction Status Date / Time meperidine Allergy Mild Itching Verified 02/14/25 10:54 clopidogrel AdvReac Severe TEMPORARY Verified 02/14/25 10:54 BLINDNESS morphine AdvReac Mild Nausea/Vomi Verified 02/14/25 10:54 tiing Visit Medications Acetaminophen (Acetaminophen 325 Mg Tablet) 650 mg PO Q6H PRN PRN Reason: Fever >100.3 Stop: 03/16/25 15:26 Amlodipine Besylate (Amlodipine Besylate 5 Mg Tablet) 10 mg PO QDAY [facility] Stop: 03/17/25 08:59 Enoxaparin Sodium (Enoxaparin Sod Inj 40 Mg/0.4 Ml Syringe) 40 mg SC QDAY [facility] Stop: 03/01/25 08:59 Ceftriaxone Sodium/Dextrose (Rocephin/D5w 1gm Iv Premix) 1,000 mg in 50 mls @ 100 mls/hr IV QDAY [facility] Stop: 02/21/25 15:33 Last Infusion: 02/14/25 17:08 Dose: Infused Lactated Ringer's (Lactated Ringers) 1,000 mls @ 100 mls/hr IV .Q10H ONE Stop: 02/15/25 03:21 Last Admin: 02/14/25 17:53 Dose: 100 mls/hr Levetiracetam (Levetiracetam 250 Mg Tablet) 500 mg PO BID [facility] Stop: 03/16/25 20:59 Ondansetron HCl (Ondansetron Inj 2 Mg/Ml Inj 2 Ml) 4 mg IV Q6H PRN; Protocol PRN Reason: NAUSEA OR VOMITING Stop: 03/16/25 15:26 Pantoprazole Sodium (Pantoprazole 40 Mg Tablet) 40 mg PO QDAY [facility] Stop: 03/17/25 08:59 Tramadol HCl (Tramadol Hcl 50 Mg Tablet) 50 mg PO Q6HR PRN PRN Reason: Pain Scale 4-10 Stop: 02/19/25 15:26 Last Admin: 02/14/25 16:53 Dose: 50 mg Assessment & Plan Plan 69-year-old male with past medical history of hypertension, hyperlipidemia, 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, CKD, diabetes mellitus, history of seizures, renal calculi status post nephrostomy tube in 12/2024 presented to the hospital with chief complaints of left flank and groin pain since 1 day and admitted for renal calculi # Nephrolithiasis # History of nephrolithiasis s/p nephrostomy tube s/p dislodgment -Patient had history of renal calculi for which he underwent nephrostomy placement in December 2024 - Came with complaint of dislodged nephrostomy tube a week ago - Complaining of pain in the left flank and groin area associated with anuria since morning on the day of admission - Denies burning micturition, hematuria, fever - Vitals are stable at the time of admission - CBC and CMP are unremarkable except for his CKD - Corrected calcium is 10.6, vitamin D is 63.4, PTH 84.9, uric acid 7.4 Plan - Started on IV fluids, LR at 100 mL/h - Started on ceftriaxone 1 g IV daily - Tramadol 50 Mg as needed for pain - Resumed his home tamsulosin 0.4 Mg p.o. daily - Dr. Nicole was consulted and he recommended nephrostomy placement tomorrow # CKD stage IIIa - Patient had history of chronic kidney disease since 2016, per chart review - Patient's daughter stated that they are following with Dr. Rosenberg - Creatinine at the time of admission is 1.6, which is stable Plan - Will continue to monitor renal functions - Will avoid nephrotoxic medications and renally dose medications # History of hypertension # History of hyperlipidemia # History of CVA # History of seizures # History of diabetes mellitus - These medical conditions are stable - Patient is following Dr. Engle for seizures - HbA1c is within normal limits in November 2024 Plan - Started on aspirin 81 Mg p.o. daily, amlodipine 10 Mg p.o. daily and levetiracetam 500 Mg p.o. twice daily - Medication reconciliation is ordered and will resume his home medications as needed Hospital Maintenance: Dispo: MedSurg DVT ppx: Lovenox GI ppx: Pantoprazole Diet: Regular IV lines: Peripheral Code status: DNR showed Patient plan of care was discussed with the attending physician, Dr. Riggins and senior resident Dr. Dwayne Torres, PGY1
[2025-02-14] MEDS: levETIRAcetam 250 MG TABLET 500 MG PO (21:17)
[2025-02-14 21:19] VITALS: BP 150/102; PULSE 84; RESP 17; O2SAT 98
[2025-02-15] VITALS (18 sets, daily range): BP systolic 130–180; BP diastolic 90–121; PULSE 63–109; RESP 12–97; TEMP 36.1–36.9; O2SAT 94–100; BMI 22.3
[2025-02-15] MEDS: Lisinopril 20 MG TABLET PO ×2 (02:12→20:33)
--- NOTE | 2025-02-15 02:23 | PC.NURSE ---
BP 174/98, RH 73, Dr. Villeda was made aware, Okay to give lisinopril 20 mg with a sip of water per Dr. Villeda. Pt NPO after getting lisinopril following dr. Villeda's orders.
[2025-02-15 06:24] LABS: Basophils % (Auto) 0 % (0-2.5); Eosinophils # (Auto) 0.2 Thou/mm3 (0.0-0.5); Eosinophils % (Auto) 3 % (0-10); Hematocrit 41.7 % (41.0-53.0); Hemoglobin 13.1 g/dL (13.5-16.0); Immature Granulocytes % (Auto) 1 % (0-0); Immature Granulocytes Auto 0.03 Thou/mm3 (0.00-0.00); Lymphocytes # (Auto) 1.1 Thou/mm3 (1.0-4.8); Lymphocytes % (Auto) 16 % (10-50); Mean Corpuscular HGB Conc 31.4 g/dl (31.0-37.0); Mean Corpuscular Hemoglobin 27.8 pg (25.0-35.0); Mean Corpuscular Volume 89 fL (80-100); Monocytes # (Auto) 0.4 Thou/mm3 (0.0-0.8); Monocytes % (Auto) 7 % (0-12); Neutrophils # (Auto) 4.7 Thou/mm3 (1.8-7.7); Neutrophils % (Auto) 73 % (37-80); Nucleated Red Blood Cell % 0 /100 WBC (0); Platelet Count 220 Thou/mm3 (140-440); RDW Standard Deviation 47.8 fL (35.1-43.9); Red Blood Count 4.71 Miln/mm3 (4.50-5.90); White Blood Count 6.5 Thou/mm3 (3.8-10.6)
[2025-02-15 06:57] LABS: Anion Gap 8 (7-16); BUN/Creatinine Ratio 15 Ratio (12-20); Blood Urea Nitrogen 20 mg/dL (9-23); Calcium 10.1 mg/dL (8.3-10.6); Carbon Dioxide 28.1 mMol/L (20.0-31.0); Cardiac Risk Estimate 4.1 RATIO (4.0-6.7); Chloride 108 mMol/L (98-107); Cholesterol 160 mg/dL (132-200); Creatinine (Component) 1.3 mg/dL (0.6-1.3); Estimated Creatinine Clearance 52.7 mL/min (>60); Glucose 113 mg/dL (74-106); HDL Cholesterol 39 mg/dL (40-60); LDL Cholesterol,Calculated 95 mg/dL (0-130); Osmolality,Calculated 290 (275-295); Potassium 4.2 mMol/L (3.4-5.1); Sodium 144 mMol/L (136-145); Thyroid Stimulating Hormone 3.69 uIU/mL (0.55-4.78); Triglycerides 132 mg/dL (30-150); eGFR 59 See Note
[2025-02-15] MEDS: cefTRIAXone/D5w 1gm IV premix 1,000 MG/50 ML BAG IV (08:12)
--- NOTE | 2025-02-15 08:23 | ESPR_ITS ---
<Statement entered by Anum Riggins MD - 02/21/25 13:38> I reviewed above note and agree with findings and plans. I have also personally examined the patient with medicine team and went over assessment and plan with medical team including healthcare administration intern and resident physician. <Statement entered by Jackson Rice MD - 02/18/25 13:55> Senior Resident Attestation: I supervised/discussed management plan with healthcare administration intern physician Dr. Torres, and was involved in the care of this patient. I personally saw and examined the patient and discussed the assessment and plan with the entire medicine team, including my attending. I agree with the assessment and plan as documented. Patient underwent lithotripsy and ureteral stent placement, tolerated well. Will continue current management and monitor patient. Patient's care was discussed with attending physician, Dr. Riggins. Jackson Rice MD PGY-2. Documentation for date of: 02/15/25 Subjective Subjective Interval history: Patient is seen and examined at bedside No acute overnight events. Patient underwent procedure by Dr. Gavin this morning. Postprocedure course was uneventful Vital signs been are stable. labs showed improved renal functions with creatinine 1.3 Dr. Nicole recommended to observe patient for 2 days in the hospital Exam Vital Signs Temp Pulse Resp BP Pulse Ox O2 Del Method 97.6 F 63 16 157/93 H 98 Room Air 02/15/25 07:47 02/15/25 07:47 02/15/25 07:47 02/15/25 07:47 02/15/25 07:47 02/15/25 07:47 Narrative Exam General: Awake. HEENT: Normocephalic, atraumatic, mucous membranes moist. Heart: Regular rate and rhythm, no murmurs. Lungs: Clear to auscultation with no wheezing or crackles. Abdomen: Soft, nondistended, positive bowel sounds. ?Tenderness noted in the left flank and hypogastric area Neurologic: Alert and oriented x3, noted aphasia and residual weakness in right half of the body Extremities: No edema. Skin: No rash or ecchymoses. Objective Labs 02/15/25 05:00 02/15/25 05:00 Labs: Laboratory Results - last 24 hr 02/14/25 02/15/25 11:30 05:00 WBC 5.6 6.5 RBC 5.25 4.71 Hgb 14.4 13.1 L Hct 44.2 41.7 MCV 84 89 MCH 27.4 27.8 MCHC 32.6 31.4 RDW Std Deviation 46.0 H 47.8 H Plt Count 254 D 220 D Neut % (Auto) 60 73 Lymph % (Auto) 29 16 [place] % (Auto) 7 7 Eos % (Auto) 3 3 Baso % (Auto) 1 0 Neut # (Auto) 3.3 4.7 Lymph # (Auto) 1.6 1.1 [place] # (Auto) 0.4 0.4 Eos # (Auto) 0.2 0.2 Baso # (Auto) 0.0 0.0 Immature Gran # (Auto) 0.03 H 0.03 H Absolute Nucleated RBC 0.00 0.00 Immature Gran % 1 H 1 H Nucleated RBC % 0 0 PT 11.7 INR 1.1 APTT 26.7 Sodium 143 144 Potassium 4.3 4.2 Chloride 108 H 108 H Carbon Dioxide 29.1 28.1 Anion Gap 6 L 8 BUN 21 20 Creatinine 1.6 H 1.3 Estim Creat Clear Calc 44.1 L 52.7 L eGFR 46 L 59 L BUN/Creatinine Ratio 13 15 Glucose 154 H 113 H Calculated Osmolality 290 290 Uric Acid 7.4 Calcium 10.6 10.1 Corrected Calcium 10.6 H Total Bilirubin 0.4 AST 22 ALT 27 Alkaline Phosphatase 114 Total Protein 7.3 Albumin 4.3 Globulin 3.0 Albumin/Globulin Ratio 1.4 Triglycerides 132 Cholesterol 160 LDL Cholesterol, Calc 95 HDL Cholesterol 39 L Cholesterol/HDL Ratio 4.1 Lipase 52 25-OH Vitamin D Total 63.4 H TSH 3.69 PTH Intact 84.9 Quality Measures Quality Measures none Advance care planning discussed with:: patient Assessment & Plan Assessment Current Active Medications: Generic Name Dose Route Start Last Admin Trade Name Freq PRN Reason Stop Dose Admin Acetaminophen 650 mg 02/14/25 15:27 Acetaminophen 325 Mg Tablet PO 03/16/25 15:26 Q6H PRN Fever >100.3 Amlodipine Besylate 10 mg 02/15/25 09:00 Amlodipine Besylate 5 Mg Tablet PO 03/17/25 08:59 QDAY [facility] Aspirin 81 mg 02/15/25 09:00 Aspirin Ec 81 Mg Tabec PO 03/17/25 08:59 QDAY [facility] Enoxaparin Sodium 40 mg 02/15/25 09:00 Enoxaparin Sod Inj 40 Mg/0.4 Ml Syringe SC 03/01/25 08:59 QDAY [facility] Ceftriaxone Sodium/Dextrose 1,000 mg in 50 mls @ 100 mls/hr 02/14/25 15:34 02/15/25 08:12 Rocephin/D5w 1gm Iv Premix IV 02/21/25 15:33 100 mls/hr QDAY JENNA Administration Levetiracetam 500 mg 02/14/25 21:00 02/14/25 21:17 Levetiracetam 250 Mg Tablet PO 03/16/25 20:59 500 mg BID JENNA Administration Lisinopril 20 mg 02/15/25 02:00 02/15/25 02:12 Lisinopril 20 Mg Tablet PO 03/17/25 01:59 20 mg HS JENNA Administration Ondansetron HCl 4 mg 02/14/25 15:27 Ondansetron Inj 2 Mg/Ml Inj 2 Ml IV 03/16/25 15:26 Q6H PRN NAUSEA OR VOMITING Protocol Pantoprazole Sodium 40 mg 02/15/25 09:00 Pantoprazole 40 Mg Tablet PO 03/17/25 08:59 QDAY [facility] Tamsulosin HCl 0.4 mg 02/15/25 09:00 Tamsulosin Hcl 0.4 Mg Capsule PO 03/17/25 08:59 QDAY [facility] Tramadol HCl 50 mg 02/14/25 15:27 02/14/25 23:52 Tramadol Hcl 50 Mg Tablet PO 02/19/25 15:26 50 mg Q6HR PRN Administration Pain Scale 4-10 Plan 69-year-old male with past medical history of hypertension, hyperlipidemia, 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, CKD, diabetes mellitus, history of seizures, renal calculi S/P nephrostomy tube in 12/2024 presented to the hospital with chief complaints of left flank and groin pain since 1 day and admitted for renal calculi # Nephrolithiasis s/p nephrostomy tube placement on 02/15/2025 # History of nephrolithiasis s/p nephrostomy tube placement in 12/2024 s/p dislodgment -Patient had history of renal calculi for which he underwent nephrostomy placement in December 2024 - Came with complaint of dislodged nephrostomy tube a week ago - Complaining of pain in the left flank and groin area associated with anuria since morning on the day of admission - Denies burning micturition, hematuria, fever - Vitals are stable at the time of admission - CBC and CMP are unremarkable except for his CKD - Corrected calcium is 10.6, vitamin D is 63.4, PTH 84.9, uric acid 7.4 Plan - Started on ceftriaxone 1 g IV daily [02/14- - Tramadol 50 Mg as needed for pain - Resumed his home tamsulosin 0.4 Mg p.o. daily - Dr. Nicole was consulted and he placed nephrostomy tube on 02/15/2025 - Dr. Nicole recommended to keep the patient in hospital for 2 days and remove the Huffman catheter on discharge once voiding trial is done - Recommended to follow-up in outpatient basis after 6 weeks of discharge in Dr. Nicole outpatient office # Acute on chronic kidney disease, stage IIIa, resolved - Patient had history of chronic kidney disease since 2016, per chart review - Patient's daughter stated that they are following with Dr. Rosenberg - Creatinine at the time of admission is 1.6, which is stable --> improved to 1.3, 02/15 Plan - Will continue to monitor renal functions - Will avoid nephrotoxic medications and renally dose medications # History of hypertension # History of hyperlipidemia # History of CVA # History of seizures # History of diabetes mellitus - These medical conditions are stable - Patient is following Dr. Engle for seizures - HbA1c is within normal limits in November 2024 Plan - Started on aspirin 81 Mg p.o. daily, amlodipine 10 Mg p.o. daily and levetiracetam 500 Mg p.o. twice daily - Medication reconciliation is ordered and will resume his home medications as needed Hospital Maintenance: Dispo: MedSurg DVT ppx: Lovenox GI ppx: Pantoprazole Diet: Regular IV lines: Peripheral Code status: DNR Patient plan of care was discussed with the attending physician, Dr. Riggins and senior resident Dr. Dwayne Torres, PGY1
--- NOTE | 2025-02-15 09:45 | CHAP ---
Patient is going in for surgery this morning and wanted a prayer. He was in bed and two family members were with him and they translated for me. I talked with them giving encouragement and prayer for the upcoming procedure.
--- NOTE | 2025-02-15 10:23 | XR_ITS ---
Examination: Left retrograde pyelogram with without KUB AP abdomen 2 views Fluoroscopy Exam date and time: February 15, 2025 12:20 PM INDICATIONS: Left flank pain this week, left hydronephrosis 10 mm proximal left ureteral calculus on CT stone study February 14, 2025 TECHNIQUE AND FINDINGS: 2 spot abdomen films obtained with contrast in dilated left renal collecting system Fluoroscopy 66 seconds radiation dose 11.11 milligray Left ureteral stent satisfactory position IMPRESSION: Retrograde pyelogram as above
--- NOTE | 2025-02-15 12:47 | PC.SS ---
Patient Jeff Sharma is a 69 Year old female admitted for PRE REG. Patient currently having procedure. SS contacted patient's daughter,, Maria Del Rosario Aguilar. Maria Del Rosario reports her sister, Cassie Aguilar and her self are surrogate decision makers. [phone] and [phone], As well as other daughter, Charity Aguilar [phone]. Patient's daughter reports patient lives at home with her sister, Cassie. Patient utilizes a Wheelchair to assist with ambulation. Patient has a Hospital bed, Bedside commode. Patient needs full assistance completing all ADL's. [facility] Patient's PCP is Kristi Nino. Patient is being followed by [facility] and Neurologist. At time of discharge patient will return back home. Patient's daughter requesting [facility] care transportation at time of discharge. Patient will need to be followed by [facility]. Next of Kin Maria Del Rosario Aguilar [phone] and Daughter, Cassie Aguilar [phone], Daughter, Charity Aguilar [phone] Discharge plan: Home with [facility]
--- NOTE | 2025-02-15 13:41 | ESOP_ITS ---
Date of Procedure 02/15/25 Pre Op Diagnosis 1 cm impacted stone left proximal ureter chronic kidney disease stage III s/p placement of left nephrostomy tube which fell off left hydronephrosis BPH with urinary obstruction Post Op Diagnosis Same Procedure Cystoscopic examination left retrograde pyelogram left ureteroscopy laser stone fragmentation and evaporation stone basketing and placement of left ureteral stent under fluoroscopic examination insertion of Huffman catheter Findings Impacted stone left proximal ureter Procedure Description Indication for procedure this is a 69-year-old gentleman he has multiple medical problem he was admitted in the hospital with urosepsis and he was found to have a impacted stone left proximal ureter and another stone in the lower pole of left kidney patient had placement of percutaneous nephrostomy tube which fell off patient has chronic kidney disease stage III he was recommended above procedure procedure and complications were discussed with the patient and his family in great detail informed consent is obtained Patient was brought to the operating room in a satisfactory condition after peyton ropriate premedication he was appropriately identified by the surgeon and operating room staff site scope and indications of procedure were reconfirmed. Patient was positioned in the dorsolithotomy position after induction of general anesthesia uneventfully parts were prepped and draped in the usual sterile fashion at this time patient received appropriate antibiotics. 20 mg of Lasix IV was given for diuresis as well as for prevention of pyelocalyceal infectious complication. Next 21 cystoscope was used to do the cystourethroscopy examination of anterior urethra was without any stricture prostatic urethra revealed bilateral prostatic hypertrophy with occlusion and there was a median bar. Inside of the bladder in all the quadrant was carried out there was no tumor stone or diverticula identified. Next I identified left ureteral orifice open-ended Pollick catheter was inserted retrograde pyelogram was performed under fluoroscopic examination this revealed stone in the proximal ureter at the left side and contrast medium was not go beyond the stone. I was able to pass a safety wire through the open-ended Pollick catheter manipulated it and I was able to advance the safety wire into the upper pole calyx. Next I passed a semirigid ureteroscope until I was able to reach the stone, with the 200 ?m laser fiber I was able to break the stone into multiple small pieces stone was impacted and it was eating into the ureteral tissue. Next with the stone basketing stone fragments were removed. Retrograde pyelogram was performed under fluoroscopic examination no abnormality was identified. Next I removed the ureteroscope, over the safety wire I was able to place 28 cm long 6 Georgian double-J stent proximal and curled into the upper pole calyx distal into the bladder. Next #16 Huffman catheter was inserted patient after having tolerated the procedure well was sent to recovery room in a satisfactory condition he will be transferred to the floor Patient disposition continue with tamsulosin 0.4 mg p.o. daily remove Huffman catheter in 2 days give him trial of voiding follow-up appointment in urology office in 6 weeks for removal of the stent Anesthesia GETA Pathology / specimen Other (Stones) Estimated Blood Loss 3.0 Condition Stable Disposition PACU Surgeon Aldo Gavin MD Surgical Staff Operation Date: 02/15/25 10:15 Case Staff Anesthesiologist: Prem Bernard
[2025-02-15] MEDS: hydrALAZINE INJ 20 MG/ML VIAL 5 MG IV (14:01)
[2025-02-15] MEDS: ONDANSETRON INJ 2 MG/ML INJ 2 ML 4 MG IV (14:14)
--- NOTE | 2025-02-15 14:30 | SUR.PHASEI ---
1341 anesthesia provider at bedside aware of patient blood pressure states he would be medicating patient for elevated blood pressure 1346 anesthesia provider medicated patient for elevated blood pressure, will monitor patient 1401 patients blood pressure continued to be elevated, patient medicated per anesthesia order for elevated blood pressure, will monitor 1410 patient had an episode of emesis 100ml clear fluid 1414 medicated Zofran 4mg via IVP, will monitor 1416 medication for elevated blood pressure effective, patient blood pressure within normal limits 1430 medication for nausea/vomiting effective, patient denies nausea and is resting comfortably in bed
--- NOTE | 2025-02-15 14:47 | PC.SS ---
SS follow up note; Patient had Nephrostomy tube placement today with . Once medically cleared patient will return back home.
--- NOTE | 2025-02-15 14:52 | SUR.PHASEI ---
1446 Report given to Melanie ZUNIGA, patient meets discharge criteria from recovery, awake and responding appropriately when asked questions with a yes or no head nod, breathing unlabored, vital signs stable, denies pain, per patient is nausea is tolerable, urinary catheter draining to gravity with pink urine in garcia bag. 1452 Patient transported via bed to room 371 without incident.
[2025-02-15] MEDS: amLODIPine BESYLATE 5 MG TABLET 10 MG PO (15:34)
[2025-02-15] MEDS: levETIRAcetam 250 MG TABLET 500 MG PO ×2 (15:34→20:33)
[2025-02-15] MEDS: PANTOPRAZOLE 40 MG TABLET PO (15:34)
[2025-02-15] MEDS: traMADol HCL 50 MG TABLET PO (20:31)
[2025-02-16] VITALS (8 sets, daily range): BP systolic 79–106; BP diastolic 57–78; PULSE 83–118; RESP 16–94; TEMP 36.1–36.3; O2SAT 91–93
[2025-02-16 05:58] LABS: Basophils % (Auto) 0 % (0-2.5); Eosinophils % (Auto) 0 % (0-10); Hematocrit 41.1 % (41.0-53.0); Hemoglobin 13.3 g/dL (13.5-16.0); Immature Granulocytes % (Auto) 0 % (0-0); Immature Granulocytes Auto 0.03 Thou/mm3 (0.00-0.00); Lymphocytes # (Auto) 1.3 Thou/mm3 (1.0-4.8); Lymphocytes % (Auto) 13 % (10-50); Mean Corpuscular HGB Conc 32.4 g/dl (31.0-37.0); Mean Corpuscular Hemoglobin 27.4 pg (25.0-35.0); Mean Corpuscular Volume 85 fL (80-100); Monocytes # (Auto) 0.9 Thou/mm3 (0.0-0.8); Monocytes % (Auto) 8 % (0-12); Neutrophils % (Auto) 78 % (37-80); Nucleated Red Blood Cell % 0 /100 WBC (0); Platelet Count 274 Thou/mm3 (140-440); RDW Standard Deviation 46.5 fL (35.1-43.9); Red Blood Count 4.86 Miln/mm3 (4.50-5.90); White Blood Count 10.2 Thou/mm3 (3.8-10.6)
[2025-02-16 06:19] LABS: Anion Gap 7 (7-16); BUN/Creatinine Ratio 14 Ratio (12-20); Blood Urea Nitrogen 21 mg/dL (9-23); Calcium 10.2 mg/dL (8.3-10.6); Carbon Dioxide 27.3 mMol/L (20.0-31.0); Chloride 104 mMol/L (98-107); Creatinine (Component) 1.5 mg/dL (0.6-1.3); Estimated Creatinine Clearance 45.7 mL/min (>60); Glucose 104 mg/dL (74-106); Osmolality,Calculated 278 (275-295); Potassium 4.9 mMol/L (3.4-5.1); Sodium 138 mMol/L (136-145); eGFR 50 See Note
[2025-02-16] MEDS: ENOXAPARIN SOD INJ 40 MG/0.4 ML SYRINGE SC (08:58)
[2025-02-16] MEDS: levETIRAcetam 250 MG TABLET 500 MG PO ×2 (08:59→20:51)
[2025-02-16] MEDS: TAMSULOSIN HCL 0.4 MG CAPSULE PO (08:59)
[2025-02-16] MEDS: cefTRIAXone/D5w 1gm IV premix 1,000 MG/50 ML BAG IV (08:59)
[2025-02-16] MEDS: EZETIMIBE 10 MG TABLET PO (08:59)
[2025-02-16] MEDS: ASPIRIN EC 81 MG TABEC PO (08:59)
[2025-02-16] MEDS: amLODIPine BESYLATE 5 MG TABLET 10 MG PO (08:59)
[2025-02-16] MEDS: PANTOPRAZOLE 40 MG TABLET PO (08:59)
[2025-02-16] MEDS: VIT B12/Vit C/FA (Nephrovite) TABLET 1 TAB PO (08:59)
--- NOTE | 2025-02-16 15:55 | ESPR_ITS ---
<Statement entered by Anum Riggins MD - 02/21/25 13:44> I reviewed above note and agree with findings and plans. I have also personally examined the patient with medicine team and went over assessment and plan with medical team including media intern and resident physician. <Statement entered by Jackson Rice MD - 02/18/25 13:56> Senior Resident Attestation: I supervised/discussed management plan with media intern physician Dr. Torres, and was involved in the care of this patient. I personally saw and examined the patient and discussed the assessment and plan with the entire medicine team, including my attending. I agree with the assessment and plan as documented. Patient reports no flank or abdominal pain, produces urine with no blood. Huffman will be removed tomorrow and he will be discharged after voiding trial. Patient's care was discussed with attending physician, Dr. Riggins. Jackson Rice MD PGY-2. Documentation for date of: 02/16/25 Subjective Subjective Interval history: Patient is seen and examined at bedside No acute overnight events. Denies any other complaints Vitals are stable Will monitor till tomorrow and discharge tomorrow after discontinuing the Huffman catheter Exam Vital Signs Temp Pulse Resp BP Pulse Ox O2 Del Method O2 Flow Rate 97.3 F 83 17 90/67 93 L Room Air 5 02/16/25 12:00 02/16/25 12:00 02/16/25 12:00 02/16/25 12:00 02/16/25 12:00 02/16/25 12:00 02/15/25 13:46 Narrative Exam General: Awake. HEENT: Normocephalic, atraumatic, mucous membranes moist. Heart: Regular rate and rhythm, no murmurs. Lungs: Clear to auscultation with no wheezing or crackles. Abdomen: Soft, nondistended, positive bowel sounds. ?Tenderness noted in the left flank and hypogastric area. Huffman catheter in, noted hematuria Neurologic: Alert and oriented x3, noted aphasia and residual weakness in right half of the body Extremities: No edema. Skin: No rash or ecchymoses. Objective Labs 02/16/25 04:46 02/16/25 04:46 Labs: Laboratory Results - last 24 hr 02/16/25 04:46 WBC 10.2 D RBC 4.86 Hgb 13.3 L Hct 41.1 MCV 85 MCH 27.4 MCHC 32.4 RDW Std Deviation 46.5 H Plt Count 274 D Neut % (Auto) 78 Lymph % (Auto) 13 [place] % (Auto) 8 Eos % (Auto) 0 Baso % (Auto) 0 Neut # (Auto) 8.0 H Lymph # (Auto) 1.3 [place] # (Auto) 0.9 H Eos # (Auto) 0.0 Baso # (Auto) 0.0 Immature Gran # (Auto) 0.03 H Absolute Nucleated RBC 0.00 Immature Gran % 0 Nucleated RBC % 0 Sodium 138 Potassium 4.9 D Chloride 104 Carbon Dioxide 27.3 Anion Gap 7 BUN 21 Creatinine 1.5 H Estim Creat Clear Calc 45.7 L eGFR 50 L BUN/Creatinine Ratio 14 Glucose 104 Calculated Osmolality 278 Calcium 10.2 Quality Measures Quality Measures none Advance care planning discussed with:: patient Assessment & Plan Assessment Current Active Medications: Generic Name Dose Route Start Last Admin Trade Name Freq PRN Reason Stop Dose Admin Acetaminophen 325 mg 02/16/25 09:00 Acetaminophen 325 Mg Tablet PO 03/18/25 08:59 Q6H PRN PAIN SCALE 1-3 (mild Acetaminophen 650 mg 02/15/25 13:49 Acetaminophen 325 Mg Tablet PO 03/16/25 15:26 Q6H PRN Fever >100.3 Amlodipine Besylate 10 mg 02/15/25 09:00 02/16/25 08:59 Amlodipine Besylate 5 Mg Tablet PO 03/17/25 08:59 10 mg QDAY JENNA Administration Aspirin 81 mg 02/16/25 09:00 02/16/25 08:59 Aspirin Ec 81 Mg Tabec PO 03/18/25 08:59 81 mg QDAY JENNA Administration Ezetimibe 10 mg 02/16/25 09:00 02/16/25 08:59 Ezetimibe 10 Mg Tablet PO 03/18/25 08:59 10 mg QDAY JENNA Administration Enoxaparin Sodium 40 mg 02/15/25 09:00 02/16/25 08:58 Enoxaparin Sod Inj 40 Mg/0.4 Ml Syringe SC 03/01/25 08:59 40 mg QDAY JENNA Administration Ceftriaxone Sodium/Dextrose 1,000 mg in 50 mls @ 100 mls/hr 02/14/25 15:34 02/16/25 08:59 Rocephin/D5w 1gm Iv Premix IV 02/21/25 15:33 100 mls/hr QDAY JENNA Administration Levetiracetam 500 mg 02/14/25 21:00 02/16/25 08:59 Levetiracetam 250 Mg Tablet PO 03/16/25 20:59 500 mg BID JENNA Administration Lisinopril 20 mg 02/15/25 02:00 02/15/25 20:33 Lisinopril 20 Mg Tablet PO 03/17/25 01:59 20 mg HS JENNA Administration Home Medication- 10 meq 02/16/25 09:00 Please Speak With PO 03/18/25 08:59 Patient Caregiver To QDAY JENNA Have Rx Brought To [facility] Ondansetron HCl 4 mg 02/14/25 15:27 02/15/25 14:14 Ondansetron Inj 2 Mg/Ml Inj 2 Ml IV 03/16/25 15:26 4 mg Q6H PRN Administration NAUSEA OR VOMITING Protocol Pantoprazole Sodium 40 mg 02/15/25 09:00 02/16/25 08:59 Pantoprazole 40 Mg Tablet PO 03/17/25 08:59 40 mg QDAY JENNA Administration Tamsulosin HCl 0.4 mg 02/16/25 09:00 02/16/25 08:59 Tamsulosin Hcl 0.4 Mg Capsule PO 03/18/25 08:59 0.4 mg QDAY JENNA Administration Tramadol HCl 50 mg 02/14/25 15:27 02/15/25 20:31 Tramadol Hcl 50 Mg Tablet PO 02/19/25 15:26 50 mg Q6HR PRN Administration Pain Scale 4-10 Vitamin B Complex/Vit C/Folic Acid 1 tab 02/16/25 09:00 02/16/25 08:59 Vit B12/Vit C/Fa (Nephrovite) Tablet PO 03/18/25 08:59 1 tab QDAY JENNA Administration Plan 69-year-old male with past medical history of hypertension, hyperlipidemia, 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, CKD, diabetes mellitus, history of seizures, renal calculi S/P nephrostomy tube in 12/2024 presented to the hospital with chief complaints of left flank and groin pain since 1 day and admitted for renal calculi # Nephrolithiasis s/p nephrostomy tube placement on 02/15/2025 # History of nephrolithiasis s/p nephrostomy tube placement in 12/2024 s/p dislodgment -Patient had history of renal calculi for which he underwent nephrostomy placement in December 2024 - Came with complaint of dislodged nephrostomy tube a week ago - Complaining of pain in the left flank and groin area associated with anuria since morning on the day of admission - Denies burning micturition, hematuria, fever - Vitals are stable at the time of admission - CBC and CMP are unremarkable except for his CKD - Corrected calcium is 10.6, vitamin D is 63.4, PTH 84.9, uric acid 7.4 Plan - Started on ceftriaxone 1 g IV daily [02/14- - Tramadol 50 Mg as needed for pain - Resumed his home tamsulosin 0.4 Mg p.o. daily - Dr. Nicole was consulted and he placed nephrostomy tube on 02/15/2025 - Dr. Nicole recommended to keep the patient in hospital for 2 days after the procedurs and remove the Huffman catheter on discharge once voiding trial is done - Recommended to follow-up in outpatient basis after 6 weeks of discharge in Dr. Nicole outpatient office # Acute on chronic kidney disease, stage IIIa, resolved - Patient had history of chronic kidney disease since 2016, per chart review - Patient's daughter stated that they are following with Dr. Rosenberg - Creatinine at the time of admission is 1.6, which is stable --> improved to 1.3, 02/15 Plan - Will continue to monitor renal functions - Will avoid nephrotoxic medications and renally dose medications # History of hypertension # History of hyperlipidemia # History of CVA # History of seizures # History of diabetes mellitus - These medical conditions are stable - Patient is following Dr. Engle for seizures - HbA1c is within normal limits in November 2024 Plan - Started on aspirin 81 Mg p.o. daily, amlodipine 10 Mg p.o. daily and levetiracetam 500 Mg p.o. twice daily - Medication reconciliation is ordered and will resume his home medications as needed Hospital Maintenance: Dispo: MedSurg DVT ppx: Lovenox GI ppx: Pantoprazole Diet: Regular IV lines: Peripheral Code status: DNR Patient plan of care was discussed with the attending physician, Dr. Riggins and senior resident Dr. Dwayne Torres, PGY1
--- NOTE | 2025-02-16 16:26 | PC.NURSE ---
Dr Torres aware that pt's bp is 82/61, hr 110, pt is resting in bed
[2025-02-17] VITALS (9 sets, daily range): BP systolic 96–130; BP diastolic 68–96; PULSE 88–112; RESP 15–97; TEMP 36.2–37.2; O2SAT 64–96
[2025-02-17 06:15] LABS: Basophils % (Auto) 1 % (0-2.5); Eosinophils # (Auto) 0.1 Thou/mm3 (0.0-0.5); Eosinophils % (Auto) 1 % (0-10); Hematocrit 38.7 % (41.0-53.0); Hemoglobin 12.8 g/dL (13.5-16.0); Immature Granulocytes % (Auto) 0 % (0-0); Immature Granulocytes Auto 0.03 Thou/mm3 (0.00-0.00); Lymphocytes # (Auto) 1.6 Thou/mm3 (1.0-4.8); Lymphocytes % (Auto) 20 % (10-50); Mean Corpuscular HGB Conc 33.1 g/dl (31.0-37.0); Mean Corpuscular Hemoglobin 28.3 pg (25.0-35.0); Mean Corpuscular Volume 86 fL (80-100); Monocytes # (Auto) 0.7 Thou/mm3 (0.0-0.8); Monocytes % (Auto) 9 % (0-12); Neutrophils # (Auto) 5.5 Thou/mm3 (1.8-7.7); Neutrophils % (Auto) 70 % (37-80); Nucleated Red Blood Cell % 0 /100 WBC (0); Platelet Count 248 Thou/mm3 (140-440); RDW Standard Deviation 48.1 fL (35.1-43.9); Red Blood Count 4.52 Miln/mm3 (4.50-5.90); White Blood Count 7.9 Thou/mm3 (3.8-10.6)
[2025-02-17 06:36] LABS: Anion Gap 8 (7-16); BUN/Creatinine Ratio 16 Ratio (12-20); Blood Urea Nitrogen 28 mg/dL (9-23); Calcium 10.1 mg/dL (8.3-10.6); Carbon Dioxide 26.8 mMol/L (20.0-31.0); Chloride 104 mMol/L (98-107); Creatinine (Component) 1.8 mg/dL (0.6-1.3); Estimated Creatinine Clearance 38.1 mL/min (>60); Glucose 112 mg/dL (74-106); Osmolality,Calculated 284 (275-295); Potassium 4.2 mMol/L (3.4-5.1); Sodium 139 mMol/L (136-145); eGFR 40 See Note
[2025-02-17] MEDS: levETIRAcetam 250 MG TABLET 500 MG PO ×2 (08:16→21:06)
[2025-02-17] MEDS: ASPIRIN EC 81 MG TABEC PO (08:16)
[2025-02-17] MEDS: EZETIMIBE 10 MG TABLET PO (08:17)
[2025-02-17] MEDS: VIT B12/Vit C/FA (Nephrovite) TABLET 1 TAB PO (08:17)
[2025-02-17] MEDS: ENOXAPARIN SOD INJ 40 MG/0.4 ML SYRINGE SC (08:17)
[2025-02-17] MEDS: PANTOPRAZOLE 40 MG TABLET PO (08:17)
[2025-02-17] MEDS: TAMSULOSIN HCL 0.4 MG CAPSULE PO (08:17)
[2025-02-17] MEDS: traMADol HCL 50 MG TABLET PO (08:34)
[2025-02-17] MEDS: cefTRIAXone/D5w 1gm IV premix 1,000 MG/50 ML BAG IV (08:58)
[2025-02-17] MEDS: RINGERS LACTATED 1000 ML 1,000 ML 100 ML IV ×2 (11:11→16:30)
[2025-02-17 15:45] LABS: Albumin, Serum 3.7 gm/dL (3.4-4.8); Anion Gap 9 (7-16); BUN/Creatinine Ratio 14 Ratio (12-20); Blood Urea Nitrogen 26 mg/dL (9-23); Calcium (Corrected) 10.2 mg/dL (8.5-10.1); Carbon Dioxide 24.4 mMol/L (20.0-31.0); Chloride 105 mMol/L (98-107); Creatinine (Component) 1.9 mg/dL (0.6-1.3); Estimated Creatinine Clearance 36.1 mL/min (>60); Glucose 144 mg/dL (74-106); Osmolality,Calculated 283 (275-295); Phosphorous 3.9 mg/dL (2.4-5.1); Potassium 4.2 mMol/L (3.4-5.1); Sodium 138 mMol/L (136-145); eGFR 37 See Note
--- NOTE | 2025-02-17 15:54 | ESPR_ITS ---
<Statement entered by Anum Riggins MD - 02/22/25 09:29> I reviewed above note and agree with findings and plans. I have also personally examined the patient with medicine team and went over assessment and plan with medical team including geotechnical intern and resident physician. Documentation for date of: 02/17/25 Subjective Subjective Interval history: Patient seen and assessed at bedside this morning. Patient's daughter states he is looking much better today. We DC'd the Huffman today and patient was able to void on his own. Unfortunately creatinine is increasing we will hold discharge for today and await tomorrow labs. Will continue to hydrate patient with IV and p.o. fluids. Exam Vital Signs Temp Pulse Resp BP Pulse Ox O2 Del Method O2 Flow Rate 97.1 F 107 H 15 97/75 96 Room Air 5 02/17/25 11:22 02/17/25 11:22 02/17/25 11:22 02/17/25 11:22 02/17/25 11:22 02/17/25 11:22 02/15/25 13:46 Narrative Exam General: Awake. Heart: Regular rate and rhythm, no murmurs. Lungs: Clear to auscultation with no wheezing or crackles. Abdomen: Soft, nondistended, positive bowel sounds. ?Mild left flank tenderness. No hypogastric pain. Neurologic: Noted aphasia and residual weakness in right half of the body Extremities: No edema. Skin: No rash or ecchymoses. Objective Labs 02/17/25 05:17 02/17/25 15:06 Labs: Laboratory Results - last 24 hr 02/17/25 02/17/25 05:17 15:06 WBC 7.9 RBC 4.52 Hgb 12.8 L Hct 38.7 L MCV 86 MCH 28.3 MCHC 33.1 RDW Std Deviation 48.1 H Plt Count 248 Neut % (Auto) 70 Lymph % (Auto) 20 [place] % (Auto) 9 Eos % (Auto) 1 Baso % (Auto) 1 Neut # (Auto) 5.5 Lymph # (Auto) 1.6 [place] # (Auto) 0.7 Eos # (Auto) 0.1 Baso # (Auto) 0.0 Immature Gran # (Auto) 0.03 H Absolute Nucleated RBC 0.00 Immature Gran % 0 Nucleated RBC % 0 Sodium 139 138 Potassium 4.2 D 4.2 Chloride 104 105 Carbon Dioxide 26.8 24.4 Anion Gap 8 9 BUN 28 H 26 H Creatinine 1.8 H 1.9 H Estim Creat Clear Calc 38.1 L 36.1 L eGFR 40 L 37 L BUN/Creatinine Ratio 16 14 Glucose 112 H 144 H Calculated Osmolality 284 283 Calcium 10.1 10.0 Corrected Calcium 10.2 H Phosphorus 3.9 Albumin 3.7 Quality Measures Quality Measures none Advance care planning discussed with:: patient and child Assessment & Plan Assessment Current Active Medications: Generic Name Dose Route Start Last Admin Trade Name Freq PRN Reason Stop Dose Admin Acetaminophen 325 mg 02/16/25 09:00 Acetaminophen 325 Mg Tablet PO 03/18/25 08:59 Q6H PRN PAIN SCALE 1-3 (mild Acetaminophen 650 mg 02/15/25 13:49 Acetaminophen 325 Mg Tablet PO 03/16/25 15:26 Q6H PRN Fever >100.3 Aspirin 81 mg 02/16/25 09:00 02/17/25 08:16 Aspirin Ec 81 Mg Tabec PO 03/18/25 08:59 81 mg QDAY JENNA Administration Ezetimibe 10 mg 02/16/25 09:00 02/17/25 08:17 Ezetimibe 10 Mg Tablet PO 03/18/25 08:59 10 mg QDAY JENNA Administration Enoxaparin Sodium 40 mg 02/15/25 09:00 02/17/25 08:17 Enoxaparin Sod Inj 40 Mg/0.4 Ml Syringe SC 03/01/25 08:59 40 mg QDAY JENNA Administration Ceftriaxone Sodium/Dextrose 1,000 mg in 50 mls @ 100 mls/hr 02/14/25 15:34 02/17/25 08:58 Rocephin/D5w 1gm Iv Premix IV 02/21/25 15:33 100 mls/hr QDAY JENNA Administration Lactated Ringer's 500 mls @ 100 mls/hr 02/17/25 11:15 02/17/25 11:11 Lactated Ringers IV 02/17/25 16:14 100 mls/hr .Q5H ONE Administration Levetiracetam 500 mg 02/14/25 21:00 02/17/25 08:16 Levetiracetam 250 Mg Tablet PO 03/16/25 20:59 500 mg BID JENNA Administration Home Medication- 10 meq 02/16/25 09:00 02/17/25 08:25 Please Speak With PO 03/18/25 08:59 Not Given Patient Caregiver To QDAY JENNA Have Rx Brought To [facility] Ondansetron HCl 4 mg 02/14/25 15:27 02/15/25 14:14 Ondansetron Inj 2 Mg/Ml Inj 2 Ml IV 03/16/25 15:26 4 mg Q6H PRN Administration NAUSEA OR VOMITING Protocol Pantoprazole Sodium 40 mg 02/15/25 09:00 02/17/25 08:17 Pantoprazole 40 Mg Tablet PO 03/17/25 08:59 40 mg QDAY JENNA Administration Tamsulosin HCl 0.4 mg 02/16/25 09:00 02/17/25 08:17 Tamsulosin Hcl 0.4 Mg Capsule PO 03/18/25 08:59 0.4 mg QDAY JENNA Administration Tramadol HCl 50 mg 02/14/25 15:27 02/17/25 08:34 Tramadol Hcl 50 Mg Tablet PO 02/19/25 15:26 50 mg Q6HR PRN Administration Pain Scale 4-10 Vitamin B Complex/Vit C/Folic Acid 1 tab 02/16/25 09:00 02/17/25 08:17 Vit B12/Vit C/Fa (Nephrovite) Tablet PO 03/18/25 08:59 1 tab QDAY [facility] Administration Plan 69-year-old male with past medical history of hypertension, hyperlipidemia, 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 Discharge held due to increased creatinine today after both IV and oral hydration. # Nephrolithiasis s/p nephrostomy tube placement on 02/15/2025 # History of nephrolithiasis s/p nephrostomy tube placement in 12/2024 s/p dislodgment -Patient had history of renal calculi for which he underwent nephrostomy placement in December 2024 - Came with complaint of dislodged nephrostomy tube a week ago - Complaining of pain in the left flank and groin area associated with anuria since morning on the day of admission - Denies burning micturition, hematuria, fever - Vitals are stable at the time of admission - CBC and CMP are unremarkable except for his CKD - Corrected calcium is 10.6, vitamin D is 63.4, PTH 84.9, uric acid 7.4 Plan - On ceftriaxone 1 g IV daily [02/14- - Tramadol 50 Mg as needed for pain - Resume his home tamsulosin 0.4 Mg p.o. daily - Dr. Nicole recommended to keep the patient in hospital for 2 days after the procedurs and remove the Huffman catheter on discharge once voiding trial is done - Recommended to follow-up in outpatient basis after 6 weeks of discharge in Dr. Niocle outpatient office - Discharge held today due to increasing creatinine with IV and p.o. hydration. Will follow-up a.m. labs. # Acute on chronic kidney disease, stage IIIa-improving - Patient had history of chronic kidney disease since 2016, per chart review - Patient's daughter stated that they are following with Dr. Rosenberg - Creatinine at the time of admission is 1.6, which is stable --> now 1.9 Plan - Will continue to monitor renal functions - Will avoid nephrotoxic medications and renally dose medications # History of hypertension # History of hyperlipidemia # History of CVA # History of seizures # History of diabetes mellitus - These medical conditions are stable - Patient is following Dr. Engle for seizures - HbA1c is within normal limits in November 2024 Plan - On aspirin 81 Mg p.o. daily, amlodipine 10 Mg p.o. daily and levetiracetam 500 Mg p.o. twice daily Hospital Maintenance: Dispo: MedSurg DVT ppx: Lovenox GI ppx: Pantoprazole Diet: Regular IV lines: Peripheral Code status: DNR Plan of care discussed with attending physician Dr. Vaishnavi Lezama MD PGY3
--- NOTE | 2025-02-17 17:06 | PC.CM ---
Patient is opened to [facility] health. He will need home health orders if he discharges to home.
[2025-02-17] MEDS: ACETAMINOPHEN 325 MG TABLET PO (23:37)
[2025-02-18 04:00] VITALS: BP 111/69; PULSE 84; RESP 17; TEMP 36.1; O2SAT 95
[2025-02-18 06:27] LABS: Albumin, Serum 3.5 gm/dL (3.4-4.8); Anion Gap 9 (7-16); BUN/Creatinine Ratio 16 Ratio (12-20); Blood Urea Nitrogen 22 mg/dL (9-23); Calcium 9.6 mg/dL (8.3-10.6); Carbon Dioxide 25.9 mMol/L (20.0-31.0); Chloride 102 mMol/L (98-107); Creatinine (Component) 1.4 mg/dL (0.6-1.3); Glucose 107 mg/dL (74-106); Osmolality,Calculated 277 (275-295); Phosphorous 3.1 mg/dL (2.4-5.1); Potassium 3.8 mMol/L (3.4-5.1); Sodium 137 mMol/L (136-145); eGFR 54 See Note
[2025-02-18 08:00] VITALS: BP 128/81; PULSE 81; PULSE 94; RESP 17; RESP 18; RESP 96; TEMP 36.3; O2SAT 98
[2025-02-18] MEDS: TAMSULOSIN HCL 0.4 MG CAPSULE PO (09:19)
[2025-02-18] MEDS: VIT B12/Vit C/FA (Nephrovite) TABLET 1 TAB PO (09:19)
[2025-02-18] MEDS: ASPIRIN EC 81 MG TABEC PO (09:20)
[2025-02-18] MEDS: EZETIMIBE 10 MG TABLET PO (09:20)
[2025-02-18] MEDS: levETIRAcetam 250 MG TABLET 500 MG PO (09:21)
[2025-02-18] MEDS: PANTOPRAZOLE 40 MG TABLET PO (09:21)
[2025-02-18] MEDS: ENOXAPARIN SOD INJ 40 MG/0.4 ML SYRINGE SC (09:22)
[2025-02-18] MEDS: cefTRIAXone/D5w 1gm IV premix 1 GM/50 ML BAG IV (09:35)
--- NOTE | 2025-02-18 11:22 | ESDS_ITS ---
<Statement entered by Anum Riggins MD - 02/22/25 12:11> I reviewed above note and agree with findings and plans. I have also personally examined the patient with medicine team and went over assessment and plan with medical team including communications intern and resident physician. Planned Discharge Date 02/18/25 DS: Providers Provider Date of admission: 02/14/25 19:19 Primary care physician: Physician No Primary/Family Admitting Provider: Anum Riggins MD Attending Provider on Admission: Anum Riggins MD Consults: 02/14/25 13:57 Consult to Urology Stat Comment: Possible stent and/or laser Consulting Provider: Aldo Gavin Attending Provider on DC: Anum Riggins MD Discharging Provider: Anum Riggins MD Anticipated date of discharge: 02/18/25 DS: Diagnosis Problem List Completed Was Problem List Reviewed/Reconciled?: Yes Hospital Course Hospital Course Hospital course: Hospital Course: Mr. Aguilar is a 69-year-old male with past medical history of hypertension, hyperlipidemia, 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, CKD, diabetes mellitus, history of seizures, renal calculi S/P nephrostomy tube in 12/2024 presented to the hospital with chief complaints of left flank and groin pain since 1 day and admitted for renal calculi. Patient admitted to the hospital for nephrolithiasis, urology Dr. Nicole was consulted on presentation. Patient was started on IV antibiotics, pain was managed, patient had nephrostomy tube placement on 02/15/2025 by urology and patient had Cystoscopic examination left retrograde pyelogram left ureteroscopy laser stone fragmentation and evaporation stone basketing and placement of left ureteral stent under fluoroscopic examination insertion of Huffman catheter done by urology. Postplacement of nephrostomy tube patient condition improved remarkably, patient Huffman catheter was removed after voiding trial. Patient's JOAQUIN improved with the progression of hospital course. Patient's other chronic conditions during the hospitalization as well. Further plan is to discharge patient home with home health, patient to follow-up with primary care physician in 1 week. Patient to follow-up with urology in 6 weeks for removal of stent. Patient advised to continue following up with nephrology as well, patient to resume all home medications. Patient is stable for discharge and patient responded well to hospital treatment. Discharge diagnosis: # Nephrolithiasis s/p nephrostomy tube placement on 02/15/2025 # Status post cystoscopy, left retrograde pyelogram, left ureteroscopy, laser stone fragmentation placement of left ureteral stent # History of nephrolithiasis s/p nephrostomy tube placement in 12/2024 s/p dislodgment # Acute on chronic kidney disease, stage IIIa-improving # History of hypertension # History of hyperlipidemia # History of CVA # History of seizures # History of diabetes mellitus Case discussed with Attending Dr. Riggins and Dr. Rice PGY2. Celso De Los Santos PGY1 Disclaimer: This note was dictated by speech recognition. Minor errors in assistant manager trainee may be present due to voice recognition software. Time Spent with Patient Time attestation: Total time spent providing and/or coordinating discharge services: Time spent: Greater than 30 minutes Home Health Home Health Referral Orders: 02/17/25 14:07 Home Health Referral Routine Reason For Exam: PT Home-Bound The patient must either because of illness or injury, need the aid of supportive devices such as crutches, canes, wheelchairs, and walkers; the use of special transportation ; or the assistance of another person in order to leave their place of residence; OR have a condition such that leaving his or her home is medically contraindicated. In addition, the patient also meets the following criteria: patient is normally unable to leave the home and leaving home requires considerable taxing effort. Addendum to Home Health Certification Practitioner's Certification: I certify that the patient has been under my care in the hospital and the care of attending physician (see below). We had a [id number] encounter on (see date below). My clinical findings indicate that the patient is home bound per the above criteria and the Home Health Services noted in these orders are medically necessary. The primary reason for the [id number] encounter is related to the fact that the patient requires home health services. Date Certifying Smwi-ae-Uyko Physician Encounter: 02/14/25 Physician's Name who will Assume Oversight for HH Services: Physician No Primary/Family [facility] - Community Resources: No PT to Evaluate: Yes PT to evaluate and provide a treatmnet plan to increase patient's mobility and strength. Wound Care: No IV Therapy: No RN Safety Evaluation: Yes RN to evaluate and create a plan of care that will produce positive outcomes. Palliative Treatment: No Palliative treatment and evaluate the need for hospice. Home Health Aide - Personal Care: No Home Health Aide to assist with any ADL's. Exam Vital Signs Temp Pulse Resp BP Pulse Ox O2 Del Method O2 Flow Rate 97.3 F 81 17 128/81 98 Room Air 5 02/18/25 08:00 02/18/25 08:00 02/18/25 08:00 02/18/25 08:00 02/18/25 08:00 02/18/25 08:00 02/15/25 13:46 Narrative Exam General: Awake. HEENT: Normocephalic, atraumatic, mucous membranes moist. Heart: Regular rate and rhythm, no murmurs. Lungs: Clear to auscultation with no wheezing or crackles. Abdomen: Soft, nondistended, positive bowel sounds. nephrostomy tube noted in the left side Neurologic: Alert and oriented x3, noted aphasia and residual weakness in right half of the body Extremities: No edema. Skin: No rash or ecchymoses. Discharge Plan Plan Patient Disposition: HOME (Self Care) Patient condition on transfer: Stable Care Plan Goals: -Follow-up with PCP within 1 week of discharge. If you do not have appointment, please follow-up with the [facility] with Dr. Torres. Call [phone] to make an appointment. -Follow up with Dr. Nicole in 6 weeks of discharge for the removal of stent. -Follow up with Dr. Rosenberg in 6 weeks of discharge for the follow up on CKD. -Continue rest of the home medications. -Return to ED if symptoms persist or return. Prescriptions/Referrals Prescriptions/Med Rec: Continued escitalopram oxalate [Lexapro] 10 MG tablet 10 mg PO QDAY Qty: 0 ezetimibe [Zetia] 10 MG tablet 10 mg PO QDAY Qty: 0 levetiracetam [Keppra] 500 MG tablet 500 mg PO BID Qty: 0 Dialyvite 800 0.8 mg tablet 1 tab PO QDAY lisinopril 20 mg tablet 20 mg PO HS Patient Comments: TAKE 1 TABLET BY MOUTH EVERY DAY aspirin [Ecotrin Low Strength] 81 mg Tablet,Delayed Release (Dr/Ec) 81 mg PO QDAY 30 Days Qty: 30 3RF potassium citrate 10 mEq (1,080 mg) tablet extended release 10 meq PO QDAY Patient Comments: TAKE 1 TABLET BY MOUTH EVERY DAY tamsulosin 0.4 mg capsule 0.4 mg PO QDAY Patient Comments: TAKE 1 CAPSULE BY MOUTH EVERYDAY AT BEDTIME acetaminophen 325 mg tablet 325 mg PO QDAY Patient Comments: TAKE 1 TABLET BY MOUTH EVERY 6 HOURS NEEDED FOR PAIN. tramadol 50 mg tablet 50 mg PO QPM PRN (Reason: pain) Patient Comments: TAKE 1 TABLET BY MOUTH EVERY DAY AT BEDTIME NEEDED No Action cefpodoxime 200 mg tablet 200 mg PO Q12H Patient Comments: TAKE 1 TABLET BY MOUTH EVERY 12 HOURS WITH FOOD FOR 30 DAYS Referrals: No Primary/Family,Physician [Primary Care Provider] - Patient/Caregiver Discharge Instructions Education Materials: Coping with Kidney Failure, ED Hematuria Print Language: Ukrainian Stand Alone Forms: Mari Award Info., Patient Portal Info Letter Discharge Order Discharge Orders: Discharge (Routine); Ordered 02/18/25 Ordered By: Giovanni Torres Quality Discharge Quality Measures VTE prophylaxis
--- NOTE | 2025-02-20 09:00 | PC.CC ---
Addendum entered by Yves Patino RN 02/20/25 09:05: Start of care date with [facility] is 02/22/25. Original Note: HH referral was sent by [facility] transfer [facility] nurse to [facility]. [facility] accepted the pt and it was booked by [facility].
--- NOTE | 2025-02-23 09:13 | ESCONSULT_ITS ---
RE: CHRIS JAIN : 1955 DATE OF CONSULTATION: 02/15/2025 CHIEF COMPLAINT: 1. Benign prostatic hypertrophy with urinary obstruction and lower urinary tract symptoms. 2. Stone in the left kidney and left proximal ureter, status post placement of left nephrostomy tube, which has come out. 3. Urinary retention status post placement of Huffman catheter. COMORBID CONDITIONS: 1. Chronic kidney disease, stage IIIA, N18.31. 2. E78.5, hyperlipidemia. 3. I10, essential hypertension. 5. F48.2, pseudobulbar affect. 6. R56.9, unspecified convulsions. HISTORY OF PRESENT ILLNESS: This is a 69-year-old gentleman. He has above problem. This patient came to the emergency room with difficulty in urinating and has not urinated for the last 12 hours. The patient was incontinent of the urine. A bladder scan was done. There was 25 mL of residual urine. The patient was given IV fluid. After that, the patient was able to urinate. He has no fever, chills, or gross hematuria. Past medical history, family history, review of the systems, personal history, please refer to the patient's history form dated, 02/14/2025. It is in HPI, in EMR. REVIEW OF SYSTEMS: All systems reviewed and normal except as documented. PAST MEDICAL HISTORY: Neurological: Positive neurological disorder and cerebrovascular accident. Cardiac: Positive cardiac disorder, myocardial infarction in 2012, and hypertension. Negative congestive heart failure. Respiratory: Negative COPD. Gastrointestinal: Positive hemorrhoid. Genitourinary: Positive for renal stone. Endocrine: Positive diabetes mellitus type 2. Neurological: Status post convulsion and cerebrovascular accident. Psychological: Positive recreational drug use and depression. PHYSICAL EXAMINATION: VITAL SIGNS: Temperature is 98.6, pulse 88, respirations 17, blood pressure is 161/100 mmHg, pulse oximetry 94% on room air. GENERAL: The patient is awake, aphasic. HEENT: Normocephalic, atraumatic. EYES: No anemia or jaundice. NECK: Supple. Trachea is central. Thyroid is not enlarged. CHEST: Symmetrical. HEART: Regular rate and rhythm. ABDOMEN: Obese. No masses. Liver, spleen, kidney not palpable. No CVA tenderness. EXTREMITIES: Revealed no edema, cyanosis, or clubbing. VARIOUS LABS: WBC 5.6, hemoglobin is 14.4. Serum sodium is 143, potassium 4.3, BUN is 21, creatinine is 1.6. CAT scan of the abdomen and pelvis revealed 1.2 cm stone lower pole of left kidney, 1 cm stone in the proximal ureter, left side. RECOMMENDATION: I had a long talk with the family and his daughter. The patient is DNR and recommendation at this time is cystoscopic examination, possible retrograde pyelogram, ureteroscopy, possible laser stone fragmentation, stone basketing, and stent placement. Procedure and complications of this were discussed with the family in great detail. Family is very understanding and the patient is scheduled for the same today. DT: 10:59:52 TT: 14:51:00 Ref: - TID: [id number] MTDD
[2025-02-24 23:36] LABS: Stone Analysis Source STONE
[2025-02-27 07:13] LABS: Stone Analysis Weight 0.013 g
== END 2025-02-18 13:17 | disposition home health service (06) | DRG 660 ==
LOC: SERX 14:08 → SERHOLD 19:43 → S3SX 02-15 06:11
PROVIDERS: Nurse Practitioner Family; Registered Nurse General Practice; Student in an Organized Health Care Education/Training Program; Urology; Admitting Provider Internal Medicine; Emergency Provider Family Medicine; Visit Provider Internal Medicine
PROC: 0TJB8ZZ Inspection of Bladder, Via Natural or Artificial Opening Endoscopic (ICD-10-PCS; CPT 52000; principal; 2025-02-15 10:00)
DX: N13.2 Hydronephrosis with renal and ureteral calculous obstruction (principal); N13.8 Other obstructive and reflux uropathy; T83.022A Displacement of nephrostomy catheter, initial encounter; I69.320 Aphasia following cerebral infarction; N18.31 Chronic kidney disease, stage 3a; I12.9 Hypertensive chronic kidney disease with stage 1 through stage 4 chronic kidney disease, or unspecified chronic kidney disease; E11.22 Type 2 diabetes mellitus with diabetic chronic kidney disease; R56.9 Unspecified convulsions; N17.9 Acute kidney failure, unspecified; E78.5 Hyperlipidemia, unspecified; F48.2 Pseudobulbar affect; R33.8 Other retention of urine; N40.1 Benign prostatic hyperplasia with lower urinary tract symptoms; I25.2 Old myocardial infarction; Z66 Do not resuscitate; Z93.6 Other artificial openings of urinary tract status; Z87.440 Personal history of urinary (tract) infections; Z87.442 Personal history of urinary calculi; Z89.022 Acquired absence of left finger(s); Z79.899 Other long term (current) drug therapy; Y73.2 Prosthetic and other implants, materials and accessory gastroenterology and urology devices associated with adverse incidents; Y84.6 Urinary catheterization as the cause of abnormal reaction of the patient, or of later complication, without mention of misadventure at the time of the procedure
CPT/HCPCS: 36415; 74176; 74420; 80048; 80053; 80061; 80069; 81001; 82306; 82365; 83690; 83970; 84443; 84550; 85025; 85610; 85730; 87081; 87086; 96365; 99285; A4217; A4649; C1769; C1889; C1894; J0360; J0696; J1100; J1580; J1650; J1940; J2405; J2704; J3010; J3490; J7120; A9270; J1805

== ENCOUNTER → 2025-03-31 | Outpatient (BNVA) | payer MEDICARE, MEDICAID, SELFPAY | END | disposition home or self-care (01) | PROVIDERS: PCP Internal Medicine; Referring Provider Internal Medicine; Visit Provider Urology | DX: N20.1 Calculus of ureter (principal); Z96.0 Presence of urogenital implants; I10 Essential (primary) hypertension; E11.9 Type 2 diabetes mellitus without complications; I25.2 Old myocardial infarction; Z86.73 Personal history of transient ischemic attack (TIA), and cerebral infarction without residual deficits | CPT/HCPCS: 52310; 81003; 96372; A4217; A4649; C1894; J1580; A9270 ==

== ENCOUNTER → 2025-05-02 | Outpatient (CLI) | payer MEDICARE, MEDICAID, SELFPAY ==
--- NOTE | 2025-05-02 16:00 | XR_ITS ---
Examination: CT abdomen and pelvis without contrast. Coronal 3-D reconstructions. Sagittal 2-D reconstructions. Date and time of exam:May 02, 2025 1615 hours Comparison February 14, 2025 INDICATIONS: Left upper abdominal pain flank pain this week, history left hydronephrosis 10 mm proximal left ureteral calculus on CT abdomen and pelvis February 14, 2025 CTDI: vol (mGy): 8.74 DLP: (mGycm): 543 Technique: Axial images of the abdomen have been obtained, 3 mm slice thickness Intravenous contrast material has not been administered. Low dose protocols were performed. One or more of the following dose reduction techniques were used; automated exposure control, adjustment of the mA and/or KV according to patient size, use of iterative reconstruction technique. Findings: No focal liver and splenic lesions No gallstones No pancreatic mass Severe right renal parenchymal scar formation Bilateral renal calculi, the largest on the right side 7 mm on the left side 11 mm with 9 mm calculus in the left renal pelvis and minimal left hydronephrosis 2 mm an adjacent 2 mm proximal left ureteral calculi Aorta is not enlarged Multiple tiny subcentimeter bladder calculi AP prostate dimension 4.9 cm Thickening of the urinary bladder wall up to 4 mm IMPRESSION: Numerous bilateral renal calculi including 9 mm calculus in the left renal pelvis Minimal left hydronephrosis, 2 mm an adjacent 2 mm proximal left ureteral calculi Multiple subcentimeter bilateral calculi Significant prostatomegaly
== END | disposition home or self-care (01) ==
PROVIDERS: PCP Family Medicine; Referring Provider Urology; Visit Provider Urology
DX: N13.2 Hydronephrosis with renal and ureteral calculous obstruction (principal); N40.0 Benign prostatic hyperplasia without lower urinary tract symptoms
CPT/HCPCS: 74176

== ENCOUNTER → 2025-09-29 | Outpatient (BNVA) | payer MEDICARE, MEDICAID, SELFPAY | END | disposition home or self-care (01) | PROVIDERS: PCP Internal Medicine; Referring Provider Internal Medicine; Visit Provider Urology | DX: N20.0 Calculus of kidney (principal); N40.1 Benign prostatic hyperplasia with lower urinary tract symptoms; N39.498 Other specified urinary incontinence; N13.8 Other obstructive and reflux uropathy; I10 Essential (primary) hypertension; Z99.3 Dependence on wheelchair | CPT/HCPCS: 99212; 99213; G0463 ==